=== PATIENT | male | born 1985 | race African-American/Black ===

== ENCOUNTER 2019-12-04 03:30 | Inpatient (IN) | payer MEDICAID, MEDICARE ==
[~2019-12-04] VITALS: Ht 180 cm; Wt 84.6 kg
[2019-12-04] VITALS (24 sets, daily range): BP systolic 83–144; BP diastolic 52–104
[~2019-12-04 03:30] MED LIST: DOXY100C2 PO; PRD20T PO
[2019-12-04] MEDS ORDERED: LACTATED RINGERS 1,000 ML IV ONE (03:45)
[2019-12-04 03:50] LABS: BASOPHILS % (AUTO) 0 % (0-10); EOSINOPHILS % (AUTO) 0 % (0-10); HEMATOCRIT 42 % (40-54); LYMPHOCYTES # (AUTO) 1.7 X 10^3 (1.0-4.0); LYMPHOCYTES % (AUTO) 17 % (12-44); MEAN CORPUSCULAR HEMOGLOBIN 27 PG (25-34); MEAN CORPUSCULAR HGB CONC 34 G/DL (32-36); MEAN CORPUSCULAR VOLUME 81 FL (80-99); MEAN PLATELET VOLUME 10.5 FL (7.4-10.4); MONOCYTES # (AUTO) 0.8 X 10^3 (0.0-1.0); MONOCYTES % (AUTO) 8 % (0-12); NEUTROPHILS # (AUTO) 7.7 X 10^3 (1.8-7.8); NEUTROPHILS % (AUTO) 75 % (42-75); PLATELET COUNT 250 10^3/uL (130-400); RED CELL DISTRIBUTION WIDTH 13.7 % (10.0-14.5); WHITE BLOOD COUNT 10.3 10^3/uL (4.3-11.0)
[2019-12-04 03:59] LABS: ALBUMIN 4.3 GM/DL (3.2-4.5); CHLORIDE 109 MMOL/L (98-107); POTASSIUM 3.2 MMOL/L (3.6-5.0); SODIUM 141 MMOL/L (135-145)
[2019-12-04 04:01] LABS: CALCIUM 9.3 MG/DL (8.5-10.1)
[2019-12-04 04:02] LABS: GLUCOSE 130 MG/DL (70-105); TOTAL PROTEIN 7.5 GM/DL (6.4-8.2)
[2019-12-04 04:03] LABS: CARBON DIOXIDE 18 MMOL/L (21-32)
[2019-12-04 04:04] LABS: BILIRUBIN,TOTAL 0.5 MG/DL (0.1-1.0)
[2019-12-04 04:06] LABS: ALKALINE PHOSPHATASE 62 U/L (40-136); CREATININE SERUM 1.56 MG/DL (0.60-1.30); GFR ESTIMATED > 60
[2019-12-04 04:07] LABS: BUN/CREATININE RATIO 16
[2019-12-04 04:08] LABS: SALICYLATE < 5.0 MG/DL (5.0-20.0)
[2019-12-04 04:09] LABS: ALANINE AMINOTRANSFERASE 64 U/L (0-55)
--- NOTE | 2019-12-04 04:09 | ED General ---
General Chief Complaint: Altered Mental Status Stated Complaint: ALTERED MENTAL STATUS Nursing Triage Note: Pt to RM 8 via [facility], [facility] at bedside with reports of pt found at scene banging head on ground, being combative and incoherent at time of EMS arrival. Bystanders at scene states pt has been smoking cigarettes soaked in formaldhyde x 2 days. EMS reports administration of 2mg of Ativan at 0306 en route, pt sedated on arrival. Pt has periorbital edema present to left eye d/t banging head on concrete. No other injuries noted on arrival. Pt arousable to physical stimuli, nonverbal. Nursing Sepsis Screen: No Definite Risk Source of Information: Patient Exam Limitations: No Limitations History of Present Illness Date Seen by Provider: Dec 04, 2019 Time Seen by Provider: 03:40 Initial Comments Here by EMS who report that they were called to the scene of the patient that was acting erratically. Apparently he has been smoking cigarettes dipped in formaldehyde for 2 days and he was becoming quite aggressive and erratic. Charlie iniguez called because of the behavior. He apparently was outside and was beating his head on the sidewalk as well as other erratic behavior. He reportedly was yelling and screaming. Law enforcement helped to restrain patient for his own protection and EMS was able to get an IV. They ultimately gave 2 mg of Ativan which calmed the patient significantly. Apparently he was talking to EMS or coherently at that time. Arrives sleeping and snoring. O2 saturation low 90s. He does have IV established and is currently receiving 1 L bolus of normal saline. Patient is not answering questions. He does have obvious abrasions to the forehead and bruising and swelling over the left eye. Patient has dirt covering his shorts and on his arms and legs. Arrives only wearing shorts. Timing/Duration: 1-2 Days, Getting Worse Severity: Moderate, Severe Allergies and Home Medications Allergies Coded Allergies: No Known Drug Allergies (Unverified , 01/16/14) Home Medications Doxycycline Hyclate 100 Mg Capsule, 1 EACH PO BID Prescribed by: MARY SILVA on 01/16/141904 Prednisone 20 Mg Tab, 40 MG PO DAILY Prescribed by: MARY SILVA on 01/16/141904 Patient Home Medication List Home Medication List Reviewed: Yes Review of Systems Review of Systems Constitutional: see HPI; No fever Unable to complete review of systems due to altered mental status Past Pxbator-Cuflta-Ughhkj Hx Past Med/Social Hx: Reviewed Nursing Past Med/Soc Hx Patient Social History Alcohol Use: Rarely Uses Recreational Drug Use: Yes Drug of Choice: formaldehyde Smoking Status: Current Everyday Smoker Type Used: Cigarettes Recent Foreign Travel: No Contact w/Someone Who Travel: No Recent Infectious Disease Expo: No Past Medical History Surgeries: No Respiratory: Yes Asthma Cardiac: No Neurological: No Reproductive Disorders: No Sexually Transmitted Disease: No Gastrointestinal: No Musculoskeletal: No Endocrine: No Cancer: No Family Medical History Reviewed Nursing Family Hx From historical records as patient is not answering questions Physical Exam Vital Signs Vital Signs - First Documented 12/04/19 03:49 Temp 37.3 Pulse 106 Resp 17 B/P (MAP) 122/77 (92) Pulse Ox 94 O2 Delivery Room Air Capillary Refill : Less Than 3 Seconds Height, Weight, BMI Height: 5'5" Weight: 220lbs. oz. 99.952211dl; 30.00 BMI Method:Stated General Appearance: No Apparent Distress, WD/WN HEENT: PERRL/EOMI, Pharynx Normal Neck: Non Tender, Supple Respiratory: Lungs Clear, Normal Breath Sounds Cardiovascular: No Murmur, Tachycardia Gastrointestinal: Non Tender, Soft Back: Normal Inspection, No CVA Tenderness Extremity: Non Tender, No Calf Tenderness Neurologic/Psychiatric: Other (sleeping and arouses to strong verbal but does not answer questions.) Skin: Warm/Dry, Ecchymosis (400 with a left greater than right), Other (dirt noted to all 4 extremities. Abrasions to the forehead and face.) Procedures/Interventions Date of ETT Placement: Dec 04, 2019 Time of ETT Placement: 06:54 Intubation Method: orotracheal Tube Size: 7.5 Medications: Fentanyl, Rocuronium, Versed Positive End Tide CO2: Yes Breath Sounds after Intubation: bilateral-equal Intubation Complications: no complications Post Intubation Xray: Yes good position Intubated for airway protection times one attempt with 7.5 endotracheal tube. 23 cm at the teeth. Sedation with Versed 5 mg IV, fentanyl 80 g IV and rocuronium 50 mg IV. Postintubation sedation with propofol Progress/Results/Core Measures Suspected Sepsis Recent Fever Within 48 Hours: No Infection Criteria Present: None New/Unexplained Altered Menta: No Sepsis Screen: No Definite Risk SIRS Temperature: Pulse: 106 Respiratory Rate: 17 Laboratory Tests 12/04/19 03:46: White Blood Count 10.3 Blood Pressure 122 /77 Mean: 92 Laboratory Tests 12/04/19 03:46: Creatinine 1.56H, Platelet Count 250, Total Bilirubin 0.5 Results/Orders Lab Results Laboratory Tests Test 12/04/19 03:45 12/04/19 03:46 12/04/19 06:31 Range/Units Total Creatine Kinase 6274 H 30-200 U/L White Blood Count 10.3 4.3-11.0 10^3/uL Red Blood Count 5.11 4.35-5.85 10^6/uL Hemoglobin 14.0 13.3-17.7 G/DL Hematocrit 42 40-54 % Mean Corpuscular Volume 81 80-99 FL Mean Corpuscular Hemoglobin 27 25-34 PG Mean Corpuscular Hemoglobin Concent 34 32-36 G/DL Red Cell Distribution Width 13.7 10.0-14.5 % Platelet Count 250 130-400 10^3/uL Mean Platelet Volume 10.5 H 7.4-10.4 FL Neutrophils (%) (Auto) 75 42-75 % Lymphocytes (%) (Auto) 17 12-44 % Monocytes (%) (Auto) 8 0-12 % Eosinophils (%) (Auto) 0 0-10 % Basophils (%) (Auto) 0 0-10 % Neutrophils # (Auto) 7.7 1.8-7.8 X 10^3 Lymphocytes # (Auto) 1.7 1.0-4.0 X 10^3 Monocytes # (Auto) 0.8 0.0-1.0 X 10^3 Eosinophils # (Auto) 0.0 0.0-0.3 10^3/uL Basophils # (Auto) 0.0 0.0-0.1 10^3/uL Sodium Level 141 135-145 MMOL/L Potassium Level 3.2 L 3.6-5.0 MMOL/L Chloride Level 109 H 98-107 MMOL/L Carbon Dioxide Level 18 L 21-32 MMOL/L Anion Gap 14 5-14 MMOL/L Blood Urea Nitrogen 25 H 7-18 MG/DL Creatinine 1.56 H 0.60-1.30 MG/DL Estimat Glomerular Filtration Rate > 60 BUN/Creatinine Ratio 16 Glucose Level 130 H 70-105 MG/DL Calcium Level 9.3 8.5-10.1 MG/DL Corrected Calcium 9.1 8.5-10.1 MG/DL Total Bilirubin 0.5 0.1-1.0 MG/DL Aspartate Amino Transf (AST/SGOT) 117 H 5-34 U/L Alanine Aminotransferase (ALT/SGPT) 64 H 0-55 U/L Alkaline Phosphatase 62 40-136 U/L Total Protein 7.5 6.4-8.2 GM/DL Albumin 4.3 3.2-4.5 GM/DL Salicylates Level < 5.0 L 5.0-20.0 MG/DL Acetaminophen Level < 10 L 10-30 UG/ML Serum Alcohol < 10 <10 MG/DL Urine Color YELLOW Urine Clarity CLEAR Urine pH 6.0 5-9 Urine Specific [place] >=1.030 1.016-1.022 Urine Protein 1+ H NEGATIVE Urine Glucose (UA) NEGATIVE NEGATIVE Urine Ketones NEGATIVE NEGATIVE Urine Nitrite NEGATIVE NEGATIVE Urine Bilirubin NEGATIVE NEGATIVE Urine Urobilinogen 0.2 < = 1.0 MG/DL Urine Leukocyte Esterase NEGATIVE NEGATIVE Urine RBC (Auto) 1+ H NEGATIVE Urine RBC 5-10 H /HPF Urine WBC 0-2 /HPF Urine Squamous Epithelial Cells 0-2 /HPF Urine Crystals PRESENT H /LPF Urine Calcium Oxalate Crystals MODERATE H /LPF Urine Bacteria TRACE /HPF Urine Casts NONE /LPF Urine Mucus SMALL H /LPF Urine Culture Indicated YES Urine Opiates Screen NEGATIVE NEGATIVE Urine Oxycodone Screen NEGATIVE NEGATIVE Urine Methadone Screen NEGATIVE NEGATIVE Urine Propoxyphene Screen NEGATIVE NEGATIVE Urine Barbiturates Screen NEGATIVE NEGATIVE Ur Tricyclic Antidepressants Screen NEGATIVE NEGATIVE Urine Phencyclidine Screen POSITIVE H NEGATIVE Urine Amphetamines Screen NEGATIVE NEGATIVE Urine Methamphetamines Screen NEGATIVE NEGATIVE Urine Benzodiazepines Screen POSITIVE H NEGATIVE Urine Cocaine Screen NEGATIVE NEGATIVE Urine Cannabinoids Screen POSITIVE H NEGATIVE My Orders Orders - SNEHA MANZO MD Ct Head Wo (12/04/19 03:45) Ua Culture If Indicated (12/04/19 03:45) Cbc With Automated Diff (12/04/19 03:45) Comprehensive Metabolic Panel (12/04/19 03:45) Alcohol (12/04/19 03:45) Drug Screen Stat (Urine) (12/04/19 03:45) Acetaminophen (12/04/19 03:45) Salicylate (12/04/19 03:45) Ekg Tracing (12/04/19 03:45) Ed Iv/Invasive Line Start (12/04/19 03:45) Monitor-Rhythm Ecg Trace Only (12/04/19 03:45) Bh Status Checks/Observation Q15M (12/04/19 03:45) Lactated Ringers (Lr 1000 Ml Iv Solution (12/04/19 03:45) Lorazepam Injection (Ativan Injection) (12/04/19 05:18) Ziprasidone Injection (Geodon Injection) (12/04/19 05:21) Water (Sterile) For Injection (Sterile W (12/04/19 05:21) Lorazepam Injection (Ativan Injection) (12/04/19 05:39) Creatine Kinase (12/04/19 05:49) Ketamine Injection (Ketalar Injection) (12/04/19 05:53) Ns Iv 1000 Ml (Sodium Chloride 0.9%) (12/04/19 06:42) Urine Culture (12/04/19 06:31) Chest 1 View, Ap/Pa Only (12/04/19 ) Propofol Drip (Icu) (Diprivan Drip (Icu) (12/04/19 06:59) Medications Given in ED Current Medications Medications Dose Ordered Sig/Taylor Route Start Time Stop Time Status Last Admin Dose Admin Ketamine HCl 500 mg STK-MED ONCE .ROUTE 12/04/19 05:53 12/04/19 05:56 DC 12/04/19 06:06 500 MG Lactated Ringer's 1,000 ml @ 0 mls/hr Q0M ONCE IV 12/04/19 03:45 12/04/19 03:47 DC 12/04/19 04:19 0 MLS/HR Lorazepam 2 mg STK-MED ONCE .ROUTE 12/04/19 05:18 12/04/19 05:22 DC 12/04/19 05:21 2 MG Lorazepam 2 mg STK-MED ONCE .ROUTE 12/04/19 05:39 12/04/19 05:43 DC 12/04/19 06:08 2 MG Sterile Water 10 ml @ ud STK-MED ONCE .ROUTE 12/04/19 05:21 12/04/19 05:25 DC 12/04/19 06:09 10 MLS/HR Ziprasidone 20 mg STK-MED ONCE IM 12/04/19 05:21 12/04/19 05:25 DC 12/04/19 06:09 20 MG Vital Signs/I&O 12/04/19 12/04/19 03:49 07:10 Temp 37.3 Pulse 106 108 Resp 17 B/P (MAP) 122/77 (92) 139/103 Pulse Ox 94 O2 Delivery Room Air Capillary Refill : Less Than 3 Seconds Blood Pressure Mean: 92 Progress Note : Progress Note Seen and evaluated. CT head ordered. LR 1 L bolus after IV fluids complete. Labs and EKG as well as UA and UDS ordered. Patient placed on monitor and O2 sat monitor. Initiated on 2 L O2 via nasal cannula. Monitor patient. 0620: Patient has had a complicated course in that he woke up agitated and moving around the bed. He almost with the bed over with his thrashing. We were able to verbally calm him. He did receive 2 milligrams of Ativan which did not help. Long force but were called but did not have to intervene. We continued to use verbal calming measures and talk with the patient. Poison control was contacted during this time and they do not believe this is from from outside cigarettes and are more concerned about synthetic marijuana or another agent such as methamphetamine. They're recommending total CK which was ordered. CT head was negative. He did receive 2 L total of fluid. He has not given urine sample. Ultimately we were able to give ketamine 400 mg IM and Geodon 20 mg IM. He did receive another 2 mg of Ativan IV and ultimately he has calmed. Patient will require admission for acute psychosis secondary to drug abuse. He may also have underlying mental health disorder. While awake he was talking about various subjects including Pok[place] and something related to correction and [place]. Patient did not have oriented conversation. There is concern about his safety and well- being and his current condition. Patient lower require admission. He is sleeping now. Patient placed back on monitors that he had taken off. Pulse oximeter probe that he broke was replaced and restarted. O2 as needed. Monitor patient. 0643: Patient has heavy snoring respirations now. O2 sats remained 100% on 2 L via nasal cannula. Given his significant rhabdomyolysis and the need for sedation secondary to acute psychosis, intubation was elected especially in the setting of concerns for airway protection and aspiration. This was discussed with Dr. Purcell and she agrees. Admit, inpatient status to the ICU. ECG Initial ECG Impression Date: Dec 04, 2019 Diagnostic Imaging Diagonstic Imaging: CT Plain Films/CT/US/NM/MRI: head Comments No acute infarct, hemorrhage, mass or edema. Departure Communication (Admissions) Time/Spoke to Admitting Phy: 06:30 Impression Primary Impression: Acute psychosis Additional Impressions: Illicit drug use Rhabdomyolysis Qualified Codes: M62.82 - Rhabdomyolysis Respiratory failure Qualified Codes: J96.01 - Acute respiratory failure with hypoxia; J96.02 - Acute respiratory failure with hypercapnia Disposition: ADMITTED INPATIENT Condition: Stable Admissions Decision to Admit Reason: Admit from ER (General) Decision to Admit/Date: Dec 04, 2019 Time/Decision to Admit Time: 06:25 Departure-Patient Inst. Referrals: NO,LOCAL PHYSICIAN (PCP/Family) Primary Care Physician SNEHA MANZO MD Dec 04, 2019 04:09
[2019-12-04 04:38] LABS: ACETAMINOPHEN < 10 UG/ML (10-30)
--- OUTSIDE RECORDS SUMMARY | 2019-12-04 05:10 | XMS REPORT | Continuity of Care Document ---
Author Organization Unknown Address Unknown Phone Unavailable Allergies Active Description Code Type Severity Reaction Onset Reported/Identified Relationship to Patient Clinical Status Yes Penicillins Drug Allergy N/A N/A 11/25/2011 Medications There is no data. Problems Date Dx Coded Attending Type Code Diagnosis Diagnosed By 11/25/2011 CLYDE GARCIA LCPC V7 4.5 STD SCREEN 11/25/2011 ALONDRA REVIEW CONSULTANTKYLE Medina V74 .5 STD SCREEN 11/25/2011 ALONDRA REVIEW CONSULTANT, KYLE V74 .5 STD SCREEN [facility]/25/2011 V74.5 STD SCREEN 12/30/2013 CLYDE GARCIA LCPC 296.80 MO BIPOLAR NOS 12/30/2013 ALONDRANATA MORALES KYLE 296 .80 MO BIPOLAR NOS 12/30/2013 ALONDRA REVIEW CONSULTANT, KYLE 296 .80 MO BIPOLAR NOS 12/30/2013 [facility] 296.80 MO BIPOLAR NOS 12/30/2013 296.80 MO BIPOLAR NOS 01/05/2014 ALONDRA MORALES KYLE 296 .90 MOOD DISORDER NOS 01/05/2014 ALONDRA REVIEW CONSULTANT, KYLE 296 .90 MOOD DISORDER NOS 01/05/2014 [facility] 296.90 MOOD DISORDER NOS 01/05/2014 296.90 MOO D DISORDER NOS Procedures Code Description [place] [address] PSYC H DIAGNOSTIC EVALUATION 12/30/2013 20896 PSYT X PT&/FAMILY 45 MINUTES 02/14/2014 Results Test Result Range Complete blood count (CBC) with automate d white blood cell (WBC) differential - 12/04/19 03:46 Blood leukocytes automated count (number/volume) 10.3 10*3/uL 4.3-11.0 Blood erythrocytes automated count (number/volume) 5.11 10*6/uL 4.35-5.85 Venous blood hemoglobin measurement (mass/volume) 14.0 g/dL 13.3-17.7 Blood hematocrit (volume fraction) 42 % 40-54 Automated erythrocyte mean corpuscular volume 81 [ foz_us] 80-99 Automated erythrocyte mean corpuscular h emoglobin (mass per erythrocyte) 27 pg 25-34 Automated erythrocyte mean corpuscular h emoglobin concentration measurement (mass/volume) 34 g/dL 32-36 Automated erythrocyte distribution width ratio 13. 7 % 10.0- 14.5 Automated blood platelet count (count/volume) 250 10*3/uL 130-400 Automated blood platelet mean volume measurement 10.5 [foz_us] 7.4-10.4 Automated blood neutrophils/100 leukocytes 75 % 42-75 Automated blood lymphocytes/100 leukocytes 17 % 12-44 Blood monocytes/100 leukocytes 8 % 0-12 Automated blood eosinophils/100 leukocytes 0 % 0-10 Automated blood basophils/100 leukocytes 0 % 0-10 Blood neutrophils automated count (number/volume) 7.7 10*3 1.8-7.8 Blood lymphocytes automated count (number/volume) 1.7 10*3 1.0-4.0 Blood monocytes automated count (number/volume) 0. 8 10*3 0.0-1.0 Automated eosinophil count 0.0 10*3/uL 0 .0-0.3 Automated blood basophil count (count/volume) 0.0 10*3/uL 0.0-0.1 Comprehensive metabolic panel - 12/04/19 03:46 Serum or plasma sodium measurement (moles/volume) 141 mmol/L 135-145 Serum or plasma potassium measurement (moles/volume) 3.2 mmol/L 3.6-5.0 Serum or plasma chloride measurement (moles/volume) 109 mmol/L 98-107 Carbon dioxide 18 mmol/L 21-32 Serum or plasma anion gap determination (moles/volume) 14 mmol/L 5-14 Serum or plasma urea nitrogen measurement (mass/volume ) 25 mg/dL 7-18 Serum or plasma creatinine measurement (mass/volume) 1.56 mg/dL 0.60-1.30 Serum or plasma urea nitrogen/creatinine mass ratio 16 NRG Serum or plasma creatinine measurement w ith calculation of estimated glomerular filtration rate > NRG Serum or plasma glucose measurement (mass/volume) 130 mg/dL 70-105 Serum or plasma calcium measurement (mass/volume) 9.3 mg/dL 8.5-10.1 Serum or plasma total bilirubin measurement (mass/volu me) 0.5 mg/dL 0.1-1.0 Serum or plasma alkaline phosphatase shakir surement (enzymatic activity/volume) 62 U/L 40-136 Serum or plasma aspartate aminotransfera se measurement (enzymatic activity/volume) 117 U/L 5-34 Serum or plasma alanine aminotransferase measurement (enzymatic activity/volume) 64 U/L 0-55 Serum or plasma protein measurement (mass/volume) 7.5 g/dL 6.4-8.2 Serum or plasma albumin measurement (mass/volume) 4.3 g/dL 3.2-4.5 CALCIUM CORRECTED 9.1 mg/dL 8.5-10.1 Serum or plasma salicylates measurement (mass/volume) - 12/04/19 03:46 Serum or plasma salicylates measurement (mass/volume) < mg/dL 5.0-20.0 Serum or plasma acetaminophen measuremen t (mass/volume) - 12/04/19 03:46 Serum or plasma acetaminophen measurement (mass/volume ) < ug/mL 10-30 Serum or plasma ethanol measurement (mas s/volume) - 12/04/19 03:46 Serum or plasma ethanol measurement (mass/volume) < mg/dL <10 Encounters ACCT No. Visit Date/Time Discharge Status Pt. Type Provider Facility Loc./Unit Complaint [id number] 03/15/2014 07:01:00 03/15/2014 23:59: 59 CLS Outpatient [id number] 02/14/2014 10:02:00 02/14/2014 23:59: 59 CLS Outpatient OLIVIA DIOP [id number] 01/05/2014 11:22:00 01/05/2014 23:59: 59 CLS Outpatient KYLE CANTU APRN [id number] 01/05/2014 11:22:00 01/05/2014 23:59: 59 CLS Outpatient KYLE CANTU APRN [id number] 12/30/2013 11:08:00 12/30/2013 23:59: 59 CLS Outpatient CLYDE GARCIA LCPC [id number] 01/16/2014 16:20:00 014 19:43:00 DIS Emergency [id number] 12/04/2019 03:52:00 Document Registration
--- OUTSIDE RECORDS SUMMARY | 2019-12-04 05:10 | XMS REPORT ---
Author Author Jason GARCIA Organization [facility] Address Unknown Care Team Providers Care Change Booth Attendant Name Role Phone JOSE CLYDE Unavailable PROBLEMS Type Condition ICD9-CM Code [id number] Code Onset Dates Condition S tatus SNOMED Code Problem Unspecified episodic mood disorder 296.90 Active 498636403 Problem Bipolar disorder, unspecified 296.80 Active 21615949 Problem Screening examination for venereal disease V74.5 Active [id number] ALLERGIES No Information ENCOUNTERS Encounter Location Date Diagnosis [facility] [address] [id number] [address] [place] [phone] Aug, [facility] [address] [id number] [address] [place] [phone] Aug, [facility] [address] [id number] [address] [place] [phone] Mar, [facility] [address] [id number] [address] [place] [phone] Mar, [facility] [address] [id number] [address] [place] [phone] Jan, [facility] [address] [id number] [address] [place] [phone] Jan, [facility] [address] [id number] [address] [place] [phone] Jan, [facility] [address] [id number] [address] [place] [phone] Jan, [facility] [address] [id number] [address] [place] [phone] Dec, [facility] [address] [id number] [address] [place] [phone] Dec, [facility] [address] [facility] [id number] [address] [place] [phone] Dec, [facility] [address] [facility] [id number] [address] [place] [phone] Dec, [facility] [address] [facility] [id number] [address] [place] [phone] Nov, [facility] [address] [facility] [id number] [address] [place] [phone] Nov, [facility] [address] [facility] [id number] [address] [place] [phone] Nov, IMMUNIZATIONS No Known Immunizations SOCIAL HISTORY Never Assessed REASON FOR VISIT PLAN OF CARE VITAL SIGNS MEDICATIONS Unknown Medications RESULTS No Results PROCEDURES Procedure Date Ordered Result Body Site PSYCH DIAGNOSTIC EVALUATION Dec 30, 2013 INSTRUCTIONS MEDICATIONS ADMINISTERED No Known Medications
--- OUTSIDE RECORDS SUMMARY | 2019-12-04 05:10 | XMS REPORT ---
Author Author Jason Barksdale Doctor Organization [facility] Address Unknown Phone Unavailable Care Team Providers Care Drill Doctor Name Role Phone Migration, Doctor Unavailable Unavailable PROBLEMS Type Condition ICD9-CM Code [id number] Code Onset Dates Condition S tatus SNOMED Code Problem Unspecified episodic mood disorder 296.90 Active 349746177 Problem Bipolar disorder, unspecified 296.80 Active 86381009 Problem Screening examination for venereal disease V74.5 Active 707607064 ALLERGIES Substance Reaction Event Type Date Status Penicillins Unknown Non Drug Allergy Aug, Active ENCOUNTERS Encounter Location Date Diagnosis [facility] [address] [id number] [address] [place] [phone] Aug, [facility] [address] [id number] [address] [place] [phone] Aug, [facility] [address] [id number] [address] [place] [phone] Mar, [facility] [address] [id number] [address] [place] [phone] Mar, [facility] [address] [id number] [address] [place] [phone] Jan, [facility] [address] [id number] [address] [place] [phone] Jan, [facility] [address] [id number] [address] [place] [phone] Jan, [facility] [address] [id number] [address] [place] [phone] Jan, [facility] [address] [id number] [address] [place] [phone] Dec, [facility] [address] [id number] [address] [place] [phone] Dec, [facility] [address] [facility] [id number] [address] [place] [phone] Dec, [facility] [address] [facility] [id number] [address] [place] [phone] Dec, [facility] [address] [facility] [id number] [address] [place] [phone] Nov, [facility] [address] [facility] [id number] [address] [place] [phone] Nov, [facility] [address] [facility] [id number] [address] [place] [phone] Nov, IMMUNIZATIONS No Known Immunizations SOCIAL HISTORY Never Assessed REASON FOR VISIT EMR-[facility] PLAN OF CARE VITAL SIGNS MEDICATIONS Medication Instructions Dosage Frequency Start Date End Date Duration S tatus Lamictal 25 mg 1 Tablet(s) by Oral route 1 time per day take 1 tab daily X7 day, then 2 tabs daily. Dec, Acti ve RESULTS No Results PROCEDURES No Known procedures INSTRUCTIONS MEDICATIONS ADMINISTERED No Known Medications
--- OUTSIDE RECORDS SUMMARY | 2019-12-04 05:10 | XMS REPORT ---
Author Author Jason Potts [facility] Address [address] [place] [address] Care Team Providers Care Marine Equipment Design Engineer Name Role Phone KYLE Potts Unavailable PROBLEMS Type Condition ICD9-CM Code [id number] Code Onset Dates Condition S tatus SNOMED Code Problem Unspecified episodic mood disorder 296.90 Active 009251620 Problem Bipolar disorder, unspecified 296.80 Active 53041855 Problem Screening examination for venereal disease V74.5 Active [id number] ALLERGIES No Information ENCOUNTERS Encounter Location Date Diagnosis [facility] [address] [id number] [address] [place] [phone] Aug, [facility] [address] [id number] [address] [place] [phone] Aug, [facility] [address] [id number] [address] [place] [phone] Mar, [facility] [address] [id number] [address] [place] [phone] Mar, [facility] [address] [id number] [address] [place] [phone] Jan, [facility] [address] [id number] [address] [place] [phone] Jan, [facility] [address] [id number] [address] [place] [phone] Jan, [facility] [address] [id number] [address] [place] [phone] Jan, [facility] [address] [id number] [address] [place] [phone] Dec, [facility] [address] [id number] [address] [place] [phone] Dec, [facility] [address] [facility] [id number] [address] [place] [phone] Dec, [facility] [address] [facility] [id number] [address] [place] [phone] Dec, [facility] [address] [facility] [id number] [address] [place] [phone] Nov, [facility] [address] [facility] [id number] [address] [place] [phone] Nov, [facility] [address] [facility] [id number] [address] [place] [phone] Nov, IMMUNIZATIONS No Known Immunizations SOCIAL HISTORY Never Assessed REASON FOR VISIT PLAN OF CARE VITAL SIGNS MEDICATIONS Unknown Medications RESULTS No Results PROCEDURES No Known procedures INSTRUCTIONS MEDICATIONS ADMINISTERED No Known Medications
--- OUTSIDE RECORDS SUMMARY | 2019-12-04 05:10 | XMS REPORT ---
Author Author Jason Potts [facility] Address [address] [place] [address] Care Team Providers Care Utilities Manager Name Role Phone KYLE Potts Unavailable PROBLEMS Type Condition ICD9-CM Code [id number] Code Onset Dates Condition S tatus SNOMED Code Problem Unspecified episodic mood disorder 296.90 Active 608495902 Problem Bipolar disorder, unspecified 296.80 Active 50147757 Problem Screening examination for venereal disease V74.5 Active [id number] ALLERGIES No Information ENCOUNTERS Encounter Location Date Diagnosis [facility] [address] [id number] [address] [place] [phone] Aug, [facility] [address] [id number] [address] [place] [phone] Aug, [facility] [address] [id number] [address] [place] [phone] Mar, [facility] [address] [id number] [address] [place] [phone] Mar, [facility] [address] [id number] [address] [place] [phone] Jan, [facility] [address] [id number] [address] [place] [phone] Jan, [facility] [address] [id number] [address] [place] [phone] Jan, [facility] [address] [id number] [address] [place] [phone] Jan, [facility] [address] [id number] [address] [place] [phone] Dec, [facility] [address] [id number] [address] [place] [phone] Dec, [facility] [address] [facility] [id number] [address] [place] [phone] Dec, [facility] [address] [facility] [id number] [address] [place] [phone] Dec, [facility] [address] [facility] [id number] [address] [place] [phone] Nov, [facility] [address] [facility] [id number] [address] [place] [phone] Nov, [facility] [address] [facility] [id number] [address] [place] [phone] Nov, IMMUNIZATIONS No Known Immunizations SOCIAL HISTORY Never Assessed REASON FOR VISIT PLAN OF CARE VITAL SIGNS Height 65 in 2014-01-05 Weight 200.2 lbs 2014-01-05 Heart Rate 80 bpm 2014-01-05 Blood pressure systolic 104 mmHg 2014-01-05 Blood pressure diastolic 68 mmHg 2014-01-05 MEDICATIONS Unknown Medications RESULTS No Results PROCEDURES No Known procedures INSTRUCTIONS MEDICATIONS ADMINISTERED No Known Medications
--- OUTSIDE RECORDS SUMMARY | 2019-12-04 05:10 | XMS REPORT ---
Author Author Jason Barksdale Doctor Organization [facility] Address Unknown Phone Unavailable Care Team Providers Care Broke Beater Operator Name Role Phone Migration, Doctor Unavailable Unavailable PROBLEMS Type Condition ICD9-CM Code NZP87-DB Code Onset Dates Condition S tatus SNOMED Code Problem Unspecified episodic mood disorder 296.90 Active 325820578 Problem Bipolar disorder, unspecified 296.80 Active 47808276 Problem Screening examination for venereal disease V74.5 Active [id number] ALLERGIES No Information ENCOUNTERS Encounter Location Date Diagnosis [facility] [address] [id number] [address] [place] [phone] Aug, [facility] [address] [id number] [address] [place] [phone] Aug, [facility] [address] [id number] [address] [place] [phone] Mar, [facility] [address] [id number] [address] [place] [phone] Mar, [facility] [address] [id number] [address] [place] [phone] Jan, [facility] [address] [id number] [address] [place] [phone] Jan, [facility] [address] [id number] [address] [place] [phone] Jan, [facility] [address] [id number] [address] [place] [phone] Jan, [facility] [address] [id number] [address] [place] [phone] Dec, [facility] [address] [id number] [address] [place] [phone] Dec, [facility] [address] [id number] [address] [place] [phone] Dec, [facility] [address] [facility] [id number] [address] [place] [phone] Dec, [facility] [address] [facility] [id number] [address] [place] [phone] Nov, [facility] [address] [facility] [id number] [address] [place] [phone] Nov, [facility] [address] [facility] [id number] [address] [place] [phone] Nov, IMMUNIZATIONS No Known Immunizations SOCIAL HISTORY Never Assessed REASON FOR VISIT EMR-[facility] PLAN OF CARE VITAL SIGNS MEDICATIONS Unknown Medications RESULTS No Results PROCEDURES No Known procedures INSTRUCTIONS MEDICATIONS ADMINISTERED No Known Medications
--- OUTSIDE RECORDS SUMMARY | 2019-12-04 05:10 | XMS REPORT ---
Author Author Jasno Barksdale Doctor Organization [facility] Address Unknown Phone Unavailable Care Team Providers Care Retail Operations Specialist Name Role Phone Migration, Doctor Unavailable Unavailable PROBLEMS Type Condition ICD9-CM Code OPI66-GM Code Onset Dates Condition S tatus SNOMED Code Problem Unspecified episodic mood disorder 296.90 Active 606771101 Problem Bipolar disorder, unspecified 296.80 Active 12959747 Problem Screening examination for venereal disease V74.5 Active 589400619 ALLERGIES No Information ENCOUNTERS Encounter Location Date Diagnosis [facility] [address] [id number] [address] [place] [phone] Aug, [facility] [address] [id number] [address] [place] [phone] Aug, [facility] [address] [id number] [address] [place] [phone] Mar, [facility] [address] [id number] [address] [place] [phone] Mar, [facility] [address] [id number] [address] [place] [phone] Jan, [facility] [address] [id number] [address] [place] [phone] Jan, [facility] [address] [id number] [address] [place] [phone] Jan, [facility] [address] [id number] [address] [place] [phone] Jan, [facility] [address] [id number] [address] [place] [phone] Dec, [facility] [address] [id number] [address] [place] [phone] Dec, [facility] [address] [id number] [address] [place] [phone] Dec, [facility] [address] [facility] [id number] [address] [place] [phone] Dec, [facility] [address] [facility] [id number] [address] [place] [phone] Nov, [facility] [address] [facility] [id number] [address] [place] [phone] Nov, [facility] [address] [facility] [id number] [address] [place] [phone] Nov, IMMUNIZATIONS No Known Immunizations SOCIAL HISTORY Never Assessed REASON FOR VISIT PLAN OF CARE VITAL SIGNS Height 65 in 2011-11-25 Weight 154 lbs 2011-11-25 Temperature 98.2 degrees Fahrenheit 2011-11-25 Heart Rate 90 bpm 2011-11-25 Respiratory Rate 18 2011-11-25 Blood pressure systolic 102 mmHg 2011-11-25 Blood pressure diastolic 70 mmHg 2011-11-25 MEDICATIONS Unknown Medications RESULTS No Results PROCEDURES Procedure Date Ordered Result Body Site CHYLMD TRACH, DNA, AMP PROBE November 25, 2011 HEPATITIS B SURFACE AG, EIA November 25, 2011 HIV-1 November 25, 2011 BLOOD SEROLOGY, QUALITATIVE November 25, 2011 INSTRUCTIONS MEDICATIONS ADMINISTERED No Known Medications
--- OUTSIDE RECORDS SUMMARY | 2019-12-04 05:10 | XMS REPORT ---
Author Author Jason RAPHAEL Organization [facility] Address [address] [place] [address] Care Team Providers Care Medical Support Specialist Name Role Phone OLIVIA RAPHAEL Unavailable PROBLEMS Type Condition ICD9-CM Code [id number] Code Onset Dates Condition S tatus SNOMED Code Problem Unspecified episodic mood disorder 296.90 Active 124091419 Problem Bipolar disorder, unspecified 296.80 Active 67224808 Problem Screening examination for venereal disease V74.5 Active 559633080 ALLERGIES No Information ENCOUNTERS Encounter Location Date Diagnosis [facility] [address] [id number] [address] [place] [phone] Aug, [facility] [address] [id number] [address] [place] [phone] Aug, [facility] [address] [id number] [address] [place] [phone] Mar, [facility] [address] [id number] [address] [place] [phone] Mar, [facility] [address] [id number] [address] [place] [phone] Jan, [facility] [address] [id number] [address] [place] [phone] Jan, [facility] [address] [id number] [address] [place] [phone] Jan, [facility] [address] [id number] [address] [place] [phone] Jan, [facility] [address] [id number] [address] [place] [phone] Dec, [facility] [address] [id number] [address] [place] [phone] Dec, [facility] [address] [facility] [id number] [address] [place] [phone] Dec, [facility] [address] [facility] [id number] [address] [place] [phone] Dec, [facility] [address] [facility] [id number] [address] [place] [phone] Nov, [facility] [address] [facility] [id number] [address] [place] [phone] Nov, [facility] [address] [facility] [id number] [address] [place] [phone] Nov, IMMUNIZATIONS No Known Immunizations SOCIAL HISTORY Never Assessed REASON FOR VISIT PLAN OF CARE VITAL SIGNS MEDICATIONS Unknown Medications RESULTS No Results PROCEDURES Procedure Date Ordered Result Body Site PSYTX PT&/FAMILY 45 MINUTES Feb 14, 2014 INSTRUCTIONS MEDICATIONS ADMINISTERED No Known Medications
--- OUTSIDE RECORDS SUMMARY | 2019-12-04 05:10 | XMS REPORT ---
Author Author Jason Barksdale Doctor Organization [facility] Address Unknown Phone Unavailable Care Team Providers Care Low Raw Sugar Cutter Name Role Phone Migration, Doctor Unavailable Unavailable PROBLEMS Type Condition ICD9-CM Code TRH47-VN Code Onset Dates Condition S tatus SNOMED Code Problem Unspecified episodic mood disorder 296.90 Active 383175135 Problem Bipolar disorder, unspecified 296.80 Active 73526647 Problem Screening examination for venereal disease V74.5 Active 571032714 ALLERGIES No Information ENCOUNTERS Encounter Location Date Diagnosis [facility] [address] [id number] [address] [place] [phone] Aug, [facility] [address] [id number] [address] [place] [phone] Aug, [facility] [address] [id number] [address] [place] [phone] Mar, [facility] [address] [id number] [address] [place] [phone] Mar, [facility] [address] [id number] [address] [place] [phone] Jan, [facility] [address] [id number] [address] [place] [phone] Jan, [facility] [address] [id number] [address] [place] [phone] Jan, [facility] [address] [id number] [address] [place] [phone] Jan, [facility] [address] [id number] [address] [place] [phone] Dec, [facility] [address] [id number] [address] [place] [phone] Dec, [facility] [address] [id number] [address] [place] [phone] Dec, [facility] [address] [facility] [id number] [address] [place] [phone] Dec, [facility] [address] [facility] [id number] [address] [place] [phone] Nov, [facility] [address] [facility] [id number] [address] [place] [phone] Nov, [facility] [address] [facility] [id number] [address] [place] [phone] Nov, IMMUNIZATIONS No Known Immunizations SOCIAL HISTORY Never Assessed REASON FOR VISIT EMR-[facility] PLAN OF CARE VITAL SIGNS MEDICATIONS Unknown Medications RESULTS No Results PROCEDURES No Known procedures INSTRUCTIONS MEDICATIONS ADMINISTERED No Known Medications
--- OUTSIDE RECORDS SUMMARY | 2019-12-04 05:10 | XMS REPORT ---
Author Author Jason RAPHAEL Organization [facility] Address [address] [place] [address] Care Team Providers Care High School Coach Name Role Phone OLIVIA RAPHAEL Unavailable PROBLEMS Type Condition ICD9-CM Code [id number] Code Onset Dates Condition S tatus SNOMED Code Problem Unspecified episodic mood disorder 296.90 Active 604889294 Problem Bipolar disorder, unspecified 296.80 Active 36676453 Problem Screening examination for venereal disease V74.5 Active 808102822 ALLERGIES No Information ENCOUNTERS Encounter Location Date Diagnosis [facility] [address] [id number] [address] [place] [phone] Aug, [facility] [address] [id number] [address] [place] [phone] Aug, [facility] [address] [id number] [address] [place] [phone] Mar, [facility] [address] [id number] [address] [place] [phone] Mar, [facility] [address] [id number] [address] [place] [phone] Jan, [facility] [address] [id number] [address] [place] [phone] Jan, [facility] [address] [id number] [address] [place] [phone] Jan, [facility] [address] [id number] [address] [place] [phone] Jan, [facility] [address] [id number] [address] [place] [phone] Dec, [facility] [address] [id number] [address] [place] [phone] Dec, [facility] [address] [facility] [id number] [address] [place] [phone] Dec, [facility] [address] [facility] [id number] [address] [place] [phone] Dec, [facility] [address] [facility] [id number] [address] [place] [phone] Nov, [facility] [address] [facility] [id number] [address] [place] [phone] Nov, [facility] [address] [facility] [id number] [address] [place] [phone] Nov, IMMUNIZATIONS No Known Immunizations SOCIAL HISTORY Never Assessed REASON FOR VISIT PLAN OF CARE VITAL SIGNS MEDICATIONS Unknown Medications RESULTS No Results PROCEDURES No Known procedures INSTRUCTIONS MEDICATIONS ADMINISTERED No Known Medications
[2019-12-04] MEDS ORDERED: LORazepam INJ 2 MG/ML (ATIVAN) VIAL ONE ×2 (05:18→05:39)
[2019-12-04] MEDS ORDERED: ZIPRASIDONE 20 MG INJ (GEODON) VIAL IM ONE (05:21)
[2019-12-04] MEDS ORDERED: WATER (STERILE) FOR INJECTION 10 ML ONE (05:21)
--- NOTE | 2019-12-04 05:30 | NUR ---
Poison Control called at this time to consult about pt status
[2019-12-04] MEDS ORDERED: KETAMINE HCL 100 MG/ML 5 ML VIAL ONE (05:53)
[2019-12-04 06:40] LABS: BILIRUBIN,URINE NEGATIVE (NEGATIVE); CLARITY,URINE CLEAR; COLOR,URINE YELLOW; GLUCOSE, URINE (UA) NEGATIVE (NEGATIVE); KETONES,URINE NEGATIVE (NEGATIVE); LEUKOCYTE ESTERASE ,URINE NEGATIVE (NEGATIVE); NITRITE,URINE NEGATIVE (NEGATIVE); PROTEIN,URINE 1+ (NEGATIVE)
[2019-12-04] MEDS ORDERED: NS IV 1000 ML 1,000 ML ONE (06:42)
[2019-12-04 06:49] LABS: BACTERIA,URINE TRACE /HPF; SQUAMOUS EPITHELIAL CELL,UR 0-2 /HPF; WBC,URINE 0-2 /HPF
[2019-12-04 06:50] LABS: CALCIUM OXALATE CRYSTALS,UR MODERATE /LPF
[2019-12-04 06:52] LABS: AMPHETAMINE SCREEN, URINE NEGATIVE (NEGATIVE); BARBITURATE SCREEN URINE NEGATIVE (NEGATIVE); BENZODIAZEPINES SCREEN URINE POSITIVE (NEGATIVE); CANNABINOID SCREEN, URINE POSITIVE (NEGATIVE); COCAINE SCREEN URINE NEGATIVE (NEGATIVE); METHADONE STAT NEGATIVE (NEGATIVE); METHAMPHETAMINE SCREEN URINE S NEGATIVE (NEGATIVE); OPIATE SCREEN URINE NEGATIVE (NEGATIVE); OXYCODONE STAT NEGATIVE (NEGATIVE); PROPOXYPHENE STAT NEGATIVE (NEGATIVE); TRICYCLIC ANTIDEPRESSANTS SCRE NEGATIVE (NEGATIVE)
[2019-12-04] MEDS ORDERED: PROPOFOL DRIP (ICU) 100 ML IV ONE (06:59)
--- OUTSIDE RECORDS SUMMARY | 2019-12-04 07:18 | XMS REPORT | Continuity of Care Document ---
Author Organization Unknown Address Unknown Phone Unavailable Allergies Active Description Code Type Severity Reaction Onset Reported/Identified Relationship to Patient Clinical Status Yes Penicillins Drug Allergy N/A N/A 11/25/2011 Medications There is no data. Problems Date Dx Coded Attending Type Code Diagnosis Diagnosed By 11/25/2011 CLYDE GARCIA LCPC V7 4.5 STD SCREEN 11/25/2011 ALONDRA EQUESTRIAN TRAINERKYLE Medina V74 .5 STD SCREEN 11/25/2011 ALONDRA EQUESTRIAN TRAINER, KYLE V74 .5 STD SCREEN 11/[facility]2011 [facility] 11/25/2011 V74.5 STD SCREEN 12/30/2013 CLYDE GARCIA LCPC 296.80 MO BIPOLAR NOS 12/30/2013 ALONDRANATA MORALES KYLE 296 .80 MO BIPOLAR NOS 12/30/2013 ALONDRA EQUESTRIAN TRAINER, KYLE 296 .80 MO BIPOLAR NOS 12/30/2013 [facility] 296.80 MO BIPOLAR NOS 12/30/2013 296.80 MO BIPOLAR NOS 01/05/2014 ALONDRA MORALES KYLE 296 .90 MOOD DISORDER NOS 01/05/2014 ALONDRA MORALES, KYLE 296 .90 MOOD DISORDER NOS 01/05/2014 [facility] 296.90 MOOD DISORDER NOS 01/05/2014 296.90 MOO D DISORDER NOS Procedures Code Description [place] [address] PSYC H DIAGNOSTIC EVALUATION 12/30/2013 83670 PSYT X PT&/FAMILY 45 MINUTES 02/14/2014 Results Test Result Range Serum or plasma creatine kinase measurem ent (enzymatic activity/volume) - 12/04/19 03:45 Serum or plasma creatine kinase measurem ent (enzymatic activity/volume) 6274 U/L 30-200 Complete blood count (CBC) with automate d [...] plasma ethanol measurement (mass/volume) < mg/dL <10 Complete urinalysis with reflex to cultu re - 12/04/19 06:31 Urine color determination YELLOW NRG Urine clarity determination CLEAR NR G Urine pH measurement by test strip 6.0 5-9 Specific gravity of urine by test strip >= 1.016-1.022 Urine protein assay by test strip, semi-quantitative 1+ NEGATIVE Urine glucose detection by automated test strip NE GATIVE NEGATIVE Erythrocytes detection in urine sediment by light micr oscopy 1+ NEGATIVE Urine ketones detection by automated test strip NE GATIVE NEGATIVE Urine nitrite detection by test strip NEGATIVE NEGATIVE Urine total bilirubin detection by test strip NEGA TIVE NEGATIVE Urine urobilinogen measurement by automated test strip (mass/volume) 0.2 mg/dL < = 1.0 Urine leukocyte esterase detection by dipstick NEG ATIVE NEGATIVE Automated urine sediment erythrocyte cou nt by microscopy (number/high power field) [HPF] NRG Automated urine sediment leukocyte count by microscopy (number/high power field) [HPF] NRG Bacteria detection in urine sediment by light microsco py TRACE NRG Squamous epithelial cells detection in u rine sediment by light microscopy 0-2 NRG Crystals detection in urine sediment by light microsco py PRESENT NRG Casts detection in urine sediment by light microscopy NONE NRG Mucus detection in urine sediment by light microscopy SMALL NRG Complete urinalysis with reflex to culture YES NRG Calcium oxalate crystals detection in ur ine sediment by light microscopy MODERATE NRG Urine drug screening test - 12/04/19 06: 31 Urine phencyclidine detection by screening method POSITIVE NEGATIVE Urine benzodiazepines detection by screening method POSITIVE NEGATIVE Urine cocaine detection NEGATIVE NEGATI VE Urine amphetamines detection by screening method N EGATIVE NEGATIVE Urine methamphetamine detection by screening method NEGATIVE NEGATIVE Urine cannabinoids detection by screening method P OSITIVE NEGATIVE Urine opiates detection by screening method NEGATI VE NEGATIVE Urine barbiturates detection NEGATIVE N EGATIVE Screening urine tricyclic antidepressants detection NEGATIVE NEGATIVE Urine methadone detection by screening method NEGA TIVE NEGATIVE Urine oxycodone detection NEGATIVE NEGA TIVE Urine propoxyphene detection NEGATIVE N EGATIVE Encounters ACCT No. Visit Date/Time Discharge Status Pt. Type Provider Facility Loc./Unit Complaint [id number] 03/15/2014 07:01:00 03/15/2014 23:59: 59 CLS Outpatient [id number] 02/14/2014 10:02:00 02/14/2014 23:59: 59 CLS Outpatient OLIVIA DIOP [id number] 01/05/2014 11:22:00 01/05/2014 23:59: 59 CLS Outpatient KYLE CANTU APRN [id number] 01/05/2014 11:22:00 01/05/2014 23:59: 59 CLS Outpatient KYLE CANTU APRN [id number] 12/30/2013 11:08:00 12/30/2013 23:59: 59 CLS Outpatient CLYDE GARCIA LCPC [id number] 01/16/2014 16:20:00 014 19:43:00 DIS Emergency [id number] 12/04/2019 03:52:00 Document Registration
--- NOTE | 2019-12-04 07:21 | Diagnostic Imaging Report ---
PROCEDURE: CT head without contrast. TECHNIQUE: Multiple contiguous axial images were obtained through the brain without the use of intravenous contrast. Auto Exposure Controls were utilized during the CT exam to meet ALARA standards for radiation dose reduction. DATE: December 04, 2019. COMPARISON: None. INDICATION: 34-year-old male, altered mental status. FINDINGS: There is soft tissue swelling superficial to the left orbit at its inferior aspect in the region of the left cheek. There is no identified radiopaque foreign body. The globes appear grossly intact. There is no identified retro-orbital hematoma. There is no identified skull fracture. The ventricles and cerebral spinal fluid spaces are of normal size and configuration for the patient's age. There is no mass effect or midline shift. There is no acute intracranial hemorrhage. There is no abnormal extra-axial fluid collection. The visualized portions of the paranasal sinuses, mastoid air cells and middle ears are well aerated. IMPRESSION: 1. Soft tissue swelling superficially located near the level of the inferior left orbit and left cheek which could relate to soft tissue contusion/hematoma. Recommend correlation clinically. 2. No identified acute intracranial abnormality. Dictated by: Dictated on workstation # [id number]
[2019-12-04] MEDS ORDERED: RT-ALBUTEROL SULF 2.5 MG/3 ML PRE-MIX VIAL INH STA (07:35)
--- NOTE | 2019-12-04 07:38 | Diagnostic Imaging Report ---
EXAMINATION: Chest radiograph, portable AP view. DATE: 12/04/2019 7:22 AM hours. INDICATION: 34-year-old male, tube placement. COMPARISON: Chest radiograph January 16, 2014. FINDINGS: The endotracheal tube is approximately 3.5 cm above the thao. The nasogastric tube is in the stomach. Heart size and mediastinal contours are unremarkable. There is no identified pneumothorax. There is no large pleural effusion. There is nonspecific right upper lobe airspace consolidation. IMPRESSION: 1. Nonspecific right upper lobe airspace consolidation. 2. Support lines and tubes as above. Dictated by: Dictated on workstation # [id number]
[2019-12-04] MEDS ORDERED: LORazepam INJ 2 MG/ML (ATIVAN) VIAL IV PRN (08:15)
--- NOTE | 2019-12-04 08:44 | History & Physical-Hospitalist ---
History of Present Illness HPI/Chief Complaint Pt is a 34yoCM who presented to the ER due to acute psychosis. He is currently intubated and sedated and unable to provide any history. All history obtained from the records. Apparently police were called due to pt acting erratically. He has been smoking 'wet' (cigarettes dipped in formaldehyde) for the past two days and became increasingly erratic and aggressive so his friends called the police. He was outside of the house beating his head on the sidewalk and yelling and screaming. He was given 2mg of Ativan by EMS which helped to calm the patient for a short period of time. Unfortunately this was short lived and he became more agitated in the ER. He at first calmed with verbal direction but this was not effective detention. requiring 500mg of Ketamine, 2mg Ativan x2, and 20mg of Geodon. Poison Control was contacted and believed this to be more consistent with synthetic marijuana intoxication. They recommended admission and checking CK. Unfortunately he did require intubation for airway protection. Source: patient Date Seen 12/04/19 Time Seen by a Provider: 08:42 Attending Physician Leidy Romo MD PCP No,Local Physician Referring Physician Date of Admission Dec 04, 2019 at 06:31 Home Medications & Allergies Home Medications Reviewed patient Home Medication Reconciliation performed by pharmacy medication reconciliations patient care technician and/or nursing. Patients Allergies have been reviewed. Allergies Allergies Coded Allergies No Known Drug Allergies (Unverified01/16/14) Past Xnbqgmm-Iegczr-Ppwhvw Hx Past Med/Social Hx: Reviewed Nursing Past Med/Soc Hx Patient Social History Alcohol Use: Rarely Uses Recreational Drug Use: Yes Drug of Choice: formaldehyde Smoking Status: Current Everyday Smoker Type Used: Cigarettes Recent Foreign Travel: No Contact w/other who traveled: No Recent Infectious Disease Expo: No Past Medical History Reproductive: No Sexually Transmitted Disease: No Family History Reviewed Nursing Family Hx From historical records as patient is not answering questions Review of Systems ROS-Unable to Obtain: intubated and sedated Constitutional: see HPI Physical Exam Physical Exam Vital Signs Vital Signs - First Documented 12/04/19 12/04/19 03:49 07:28 Temp 37.3 Pulse 106 Resp 17 B/P (MAP) 122/77 (92) Pulse Ox 94 O2 Delivery Room Air FiO2 70 Capillary Refill : Less Than 3 Seconds Height, Weight, BMI Height: 5'5" Weight: 220lbs. oz. 99.763073fa; 30.00 BMI Method:Stated General Appearance: WD/WN, Other (intubated, resting comfortably) HEENT: Moist Mucous Membranes, Other (ETT in place, some edema around left eye) Neck: Normal Inspection; No JVD, No Thyromegaly Respiratory: Lungs Clear, Other (on vent) Cardiovascular: Regular Rate, Rhythm, No Murmur Gastrointestinal: Normal Bowel Sounds, Non Tender, Soft Genital/Rectal: Other (andres in place ) Extremity: Normal Capillary Refill, Normal Inspection, No Pedal Edema Neurologic/Psychiatric: Other (sedated, resting comfortably) Skin: Normal Color, Warm/Dry, Tattoos/Piercings Results Results/Procedures Labs Laboratory Tests 12/04/19 03:46 Patient resulted labs reviewed. Imaging: Reviewed Imaging Report [facility] [place] [place] NAME: [facility] REC#: [id number] PT STATUS: ADM IN : 1985 PHYSICIAN: SNEHA MANZO MD ADMIT DATE: 12/04/19/ICU Signed Date of Exam:12/04/19 CHEST 1 VIEW, AP/PA ONLY EXAMINATION: Chest radiograph, portable AP view. DATE: 12/04/2019 7:22 AM hours. INDICATION: 34-year-old male, tube placement. COMPARISON: Chest radiograph January 16, 2014. FINDINGS: The endotracheal tube is approximately 3.5 cm above the thao. The nasogastric tube is in the stomach. Heart size and mediastinal contours are unremarkable. There is no identified pneumothorax. There is no large pleural effusion. There is nonspecific right upper lobe airspace consolidation. IMPRESSION: 1. Nonspecific right upper lobe airspace consolidation. 2. Support lines and tubes as above. Dictated by: Dictated on workstation # [id number] Dict: 12/04/1923 Trans: 12/04/19904 CV [id number] Interpreted by: KIRK CENTENO MD Electronically signed by: KIRK CENTENO MD 12/04/19904 [facility] [place] [place] [facility] [id number] PT STATUS: ADM IN : 1985 PHYSICIAN: SNEHA MANZO MD ADMIT DATE: 12/04/19/ICU Signed Date of Exam:12/04/19 CT HEAD WO PROCEDURE: CT head without contrast. TECHNIQUE: Multiple contiguous axial images were obtained through the brain without the use of intravenous contrast. Auto Exposure Controls were utilized during the CT exam to meet ALARA standards for radiation dose reduction. DATE: December 04, 2019. COMPARISON: None. INDICATION: 34-year-old male, altered mental status. FINDINGS: There is soft tissue swelling superficial to the left orbit at its inferior aspect in the region of the left cheek. There is no identified radiopaque foreign body. The globes appear grossly intact. There is no identified retro-orbital hematoma. There is no identified skull fracture. The ventricles and cerebral spinal fluid spaces are of normal size and configuration for the patient's age. There is no mass effect or midline shift. There is no acute intracranial hemorrhage. There is no abnormal extra-axial fluid collection. The visualized portions of the paranasal sinuses, mastoid air cells and middle ears are well aerated. IMPRESSION: 1. Soft tissue swelling superficially located near the level of the inferior left orbit and left cheek which could relate to soft tissue contusion/hematoma. Recommend correlation clinically. 2. No identified acute intracranial abnormality. Dictated by: Dictated on workstation # [id number] Dict: 12/04/1911 Trans: 12/04/19905 [facility] [id number] Interpreted by: KIRK CENTENO MD Electronically signed by: KIRK CENTENO MD 12/04/19905 Assessment/Plan Admission Diagnosis Acute Respiratory Failure Admission Status: Inpatient Order (span 2 midnights) Reason for Inpatient Admission: see below Assessment and Plan Acute Respiratory Failure Acute Psychosis Continue on vent TeleICU consulted, appreciate assistance I spoke with Dr Harlan GUTIERREZ ordered, vent changes per TeleICU following results Add precedex for sedation due to hypotension and attempt to wean down propofol as able Rhabdomyolysis [place] Transaminitis s/p 2L in the ER Continue high volume fluid resuscitation Andres for accurate i/os Trend labs in AM Hypokalemia Replace per protocol Illicit drug use Will need social media editor consult when extubated Poison control contacted per ER Diagnosis/Problems Diagnosis/Problems (1) Acute psychosis Status: Acute (2) Respiratory failure Status: Acute Qualifiers: Chronicity: acute Respiratory failure complication: hypoxia and hypercapnia Qualified Codes: J96.01 - Acute respiratory failure with hypoxia; J96.02 - Acute respiratory failure with hypercapnia (3) Rhabdomyolysis Status: Acute Qualifiers: Rhabdomyolysis type: non-traumatic Qualified Codes: M62.82 - Rhabdomyolysis (4) Illicit drug use Status: Acute (5) Hypokalemia Status: Acute (6) Hypotension Status: Acute Qualifiers: Hypotension type: hypotension due to drug Qualified Codes: I95.2 - Hypotension due to drugs (7) [place] (acute kidney injury) Status: Acute (8) Transaminitis Status: Acute LEIDY ROMO MD Dec 04, 2019 08:44
[2019-12-04] MEDS: MIDAZOLAM DRIP 50 MG/NS 90 ML IV SCH ×2 (08:51)
[2019-12-04] MEDS ORDERED: ROCURONIUM 10 MG/ML 5 ML SYRINGE IV ONE (08:54)
[2019-12-04] MEDS ORDERED: fentaNYL INJECTION 100 MCG/2 ML AMP INJ ONE (08:54)
[2019-12-04] MEDS ORDERED: MIDAZOLAM 5 MG/5 ML (VERSED) VIAL IJ ONE (08:54)
[2019-12-04] MEDS: NS IV 1000 ML 1,000 ML IV SCH ×4 (09:10→22:53)
[2019-12-04] MEDS: DexMEDEtomidine 250 ML DRIP 250 ML IV SCH (09:11)
[2019-12-04] MEDS ORDERED: RT-ALBUTEROL SULF 2.5 MG/3 ML PRE-MIX VIAL INH PRN (09:15)
[2019-12-04 09:27] LABS: ABG BASE EXCESS -1.1 MMOL/L (-2.5-2.5); ABG OXYGEN SATURATION 93 % (94-100); ABG PCO2 46 MMHG (35-45); ABG PO2 71 MMHG (79-93); ABG TCO2 25.5 MMOL/L (21.0-31.0)
[2019-12-04 09:49] LABS: ABG PH 7.33 (7.37-7.43)
[2019-12-04 09:50] LABS: INSPIRED O2 35%; PATIENT TEMP 36.6; VENTILATOR YES
[2019-12-04 10:20] LABS: MAGNESIUM 1.8 MG/DL (1.6-2.4)
[2019-12-04] MEDS ORDERED: NS IV 1000 ML 1,000 ML IV SCH (16:00)
[2019-12-04 16:17] LABS: BUN/CREATININE RATIO 20; CARBON DIOXIDE 21 MMOL/L (21-32); CHLORIDE 113 MMOL/L (98-107); CREATINE KINASE 4239 U/L (30-200); CREATININE SERUM 1.04 MG/DL (0.60-1.30); GFR ESTIMATED > 60; GLUCOSE 122 MG/DL (70-105); MAGNESIUM 2.1 MG/DL (1.6-2.4); PHOSPHORUS 3.1 MG/DL (2.3-4.7); POTASSIUM 4.1 MMOL/L (3.6-5.0); SODIUM 141 MMOL/L (135-145)
--- NOTE | 2019-12-04 19:25 | NUR ---
TIMELINE NOTE: 0802: PATIENT ARRIVED FROM ED AND MOVED TO ICU BED, BSM APPLIED. PT RESTING WITH EYES CLOSED IN NAD. VITALS STABLE. 1000: PT SBP 90'S, TITRATING PROPOFOL DOWN TO BP. VERSED GTT AND PRECEDEX GTT INITIATED PER ORDER, SEE EMAR. 1200: PT RESTING COMFORTABLY IN BED IN NAD. VITALS UNCHANGED. 1500: PER POISON CONTROL, RECOMMENDING REPEAT LABS. DR ROMO NOTIFIED AND BMP, MAG, PHOS, AND CK. NOTIFIED OF PATIENTS CONTINUED SBP 80'S AND ORDER RECEIVED FOR NS 1000ML BOLUS. 1730: THIS RN CONSULTED WITH MULTIPLE OTHER ICU RNS AND CONCERN WITH INCREASED ST ELEVATION ON BEDSIDE SIDER. STAT EKG OBTAINED. THIS SHOWED ACUTE DC WITH ST ELEVATION. DR ROMO IMMEDIATELY NOTIFIED WITH ORDERS TO CONSULT DR LUNA AND STAT TROPONIN. PT IS IN NAD. SBP CONTINUES IN 80'S WITH MAP 62-65. NO NEW ORDERS FOR THIS. CONTINUE TO MONITOR. 181: DR LUNA NOTIFIED OF NEW CONSULT AND UPDATED ON PT CONDITION. ORDER RECEIVED FOR STAT ECHO. 1820: DR LUNA NOTIFIED OF TROPONIN OF 0.030. LOGISTICS OFFICER EN ROUTE TO HOSPITAL AT THIS TIME. 1830: ECHO HERE AND NOTIFIED TO CALL DR LUNA AFTER ECHO COMPLETE.
--- NOTE | 2019-12-04 19:33 | NUR ---
THIS RN DID NOTIFY POISON CONTROL OF NEW INCREASE IN ST ELEVATION. WILL CONSULT WITH THEIR PATHOLOGIST FOR ANY RECOMMENDATIONS IF DIFFERENT THAN WHAT CURRENT PLAN OF CARE CONSISTS OF.
[2019-12-04 21:46] LABS: CREATINE KINASE 3500 U/L (30-200)
[2019-12-04 21:52] LABS: CREATINE KINASE MB 5.4 NG/ML (<6.6)
--- NOTE | 2019-12-04 22:13 | NUR ---
2051 alid updated on patient condition, orders received for labs, [facility] no new orders.
--- NOTE | 2019-12-04 22:36 | NUR ---
Poison control spoke with this RN, updated on patient condition.
[2019-12-04] MEDS: ENOXAPARIN 40 MG/0.4 ML (LOVENOX) SYR SC SCH (22:55)
[2019-12-05] VITALS (30 sets, daily range): BP systolic 93–156; BP diastolic 55–120
[2019-12-05] MEDS: DexMEDEtomidine 250 ML DRIP 250 ML IV SCH ×2 (02:01→14:58)
[2019-12-05 03:27] LABS: BASOPHILS # (AUTO) 0.1 10^3/uL (0.0-0.1); BASOPHILS % (AUTO) 1 % (0-10); EOSINOPHILS # (AUTO) 0.2 10^3/uL (0.0-0.3); EOSINOPHILS % (AUTO) 2 % (0-10); HEMATOCRIT 36 % (40-54); HEMOGLOBIN 11.7 G/DL (13.3-17.7); LYMPHOCYTES # (AUTO) 2.9 X 10^3 (1.0-4.0); LYMPHOCYTES % (AUTO) 36 % (12-44); MEAN CORPUSCULAR HEMOGLOBIN 28 PG (25-34); MEAN CORPUSCULAR HGB CONC 33 G/DL (32-36); MEAN CORPUSCULAR VOLUME 84 FL (80-99); MEAN PLATELET VOLUME 10.1 FL (7.4-10.4); MONOCYTES # (AUTO) 0.6 X 10^3 (0.0-1.0); MONOCYTES % (AUTO) 7 % (0-12); NEUTROPHILS # (AUTO) 4.5 X 10^3 (1.8-7.8); NEUTROPHILS % (AUTO) 55 % (42-75); PLATELET COUNT 174 10^3/uL (130-400); RED CELL DISTRIBUTION WIDTH 13.7 % (10.0-14.5); WHITE BLOOD COUNT 8.2 10^3/uL (4.3-11.0)
[2019-12-05 03:35] LABS: CHLORIDE 115 MMOL/L (98-107); POTASSIUM 4.4 MMOL/L (3.6-5.0); SODIUM 142 MMOL/L (135-145)
[2019-12-05 03:36] LABS: ALBUMIN 3.2 GM/DL (3.2-4.5)
[2019-12-05 03:37] LABS: INR 1.2 (0.8-1.4); PROTHROMBIN TIME PATIENT 15.4 SEC (12.2-14.7)
[2019-12-05 03:38] LABS: GLUCOSE 113 MG/DL (70-105); TOTAL PROTEIN 5.5 GM/DL (6.4-8.2); TRIGLYCERIDES 125 MG/DL (<150)
[2019-12-05 03:39] LABS: CARBON DIOXIDE 19 MMOL/L (21-32)
[2019-12-05 03:40] LABS: BILIRUBIN,TOTAL 0.9 MG/DL (0.1-1.0)
[2019-12-05 03:41] LABS: PHOSPHORUS 2.1 MG/DL (2.3-4.7)
[2019-12-05 03:42] LABS: ALKALINE PHOSPHATASE 53 U/L (40-136); CREATININE SERUM 0.94 MG/DL (0.60-1.30); GFR ESTIMATED > 60
[2019-12-05 03:43] LABS: BILIRUBIN,DIRECT 0.3 MG/DL (0.0-0.3); BILIRUBIN,INDIRECT 0.6 MG/DL; BUN/CREATININE RATIO 21
[2019-12-05 03:45] LABS: ALANINE AMINOTRANSFERASE 41 U/L (0-55); CREATINE KINASE 3067 U/L (30-200)
[2019-12-05] MEDS: NS IV 1000 ML 1,000 ML IV SCH (04:11)
[2019-12-05 04:29] LABS: ABG BASE EXCESS -2.9 MMOL/L (-2.5-2.5); ABG OXYGEN SATURATION 77 % (94-100); ABG PCO2 34 MMHG (35-45); ABG PO2 42 MMHG (79-93); ABG TCO2 22.6 MMOL/L (21.0-31.0)
[2019-12-05 04:30] LABS: ALLENS TEST POSITIVE; INSPIRED O2 21; PATIENT TEMP 35.3; VENTILATOR YES
--- NOTE | 2019-12-05 04:34 | Pulmonary Consultation ---
History of Present Illness History of Present Illness Date Seen by Provider: Dec 05, 2019 Time Seen by Provider: 07:28 Date of Admission History of Present Illness 34yo presented via EMS on 12/03 to ED secondary to psychosis and acting erratically. He has been smoking cigarettes dipped in formaldehyde for 2 days and he was becoming quite aggressive and erratic. He was beating his head on the sidewalk. Law enforcement helped to restrain patient for his own protection and EMS was able to get an IV. They ultimately gave 2 mg of Ativan which calmed the patient significantly. O2 saturation low 90s uppon ED admisson. PT was found to have acute rhabdomyolysis and was intubated in the ED. I am consulted for pulmonary/ICU management. Allergies and Home Medications Allergies Coded Allergies: No Known Drug Allergies (Unverified , 01/16/14) Home Medications Doxycycline Hyclate 100 Mg Capsule, 1 EACH PO BID Prescribed by: MARY SILVA on 01/16/141904 Prednisone 20 Mg Tab, 40 MG PO DAILY Prescribed by: MARY SILVA on 01/16/141904 Past Oinjlzj-Gftqgp-Mtxbkw Hx Past Med/Social Hx: Reviewed Nursing Past Med/Soc Hx Patient Social History Alcohol Use: Rarely Uses Recreational Drug Use: Yes Drug of Choice: formaldehyde Smoking Status: Current Everyday Smoker Type Used: Cigarettes Recent Foreign Travel: No Contact w/Someone Who Travel: No Recent Infectious Disease Expo: No Past Medical History Surgeries: No Respiratory: Yes Asthma Cardiac: No Neurological: No Reproductive Disorders: No Sexually Transmitted Disease: No Gastrointestinal: No Musculoskeletal: No Endocrine: No Cancer: No Family Medical History Reviewed Nursing Family Hx From historical records as patient is not answering questions Review of Systems Time Seen by Provider: 07:28 Sepsis Event Evaluation Height, Weight, BMI Height: 5'5" Weight: 220lbs. oz. 99.644254es; 30.00 BMI Method:Stated Exam Exam Vital Signs Date Time Temp Pulse Resp B/P (MAP) Pulse Ox O2 Delivery O2 Flow Rate FiO2 12/05/19 04:19 35.3 12/05/19 03:06 55 18 100 21 12/05/19 02:01 56 92/61 12/05/19 02:00 56 18 97/61 (73) 100 Mechanical Ventilator 21.00 12/05/19 01:00 56 17 93/56 (68) 100 Mechanical Ventilator 21.00 12/05/19 01:00 57 12/05/19 00:06 35.8 12/05/19 00:00 100 Mechanical Ventilator 21 12/05/19 00:00 56 17 93/55 (68) 100 Mechanical Ventilator 21.00 12/04/19 23:00 57 18 97/64 (75) 99 Mechanical Ventilator 21.00 12/04/19 22:54 57 95/61 12/04/19 22:27 58 18 99 21 12/04/19 22:16 Mechanical Ventilator 21.00 12/04/19 22:00 58 18 90/63 (72) 100 Mechanical Ventilator 30.00 12/04/19 21:00 59 18 93/60 (71) 100 Mechanical Ventilator 30.00 12/04/19 20:00 60 17 89/63 (72) 100 Mechanical Ventilator 30.00 12/04/19 20:00 100 Mechanical Ventilator 25 12/04/19 19:46 35.8 12/04/19 19:00 Mechanical Ventilator 25.00 12/04/19 19:00 60 12/04/19 19:00 60 17 83/54 (64) 99 Mechanical Ventilator 30.00 12/04/19 18:36 90 17 100 25 12/04/19 18:00 61 15 87/55 (66) 100 Mechanical Ventilator 30.00 12/04/19 17:00 62 17 91/54 (66) 100 Mechanical Ventilator 30.00 12/04/19 16:00 35.8 12/04/19 16:00 Mechanical Ventilator 25 12/04/19 16:00 64 17 84/53 (63) 100 Mechanical Ventilator 30.00 12/04/19 15:10 65 18 99 25 12/04/19 15:00 66 18 86/57 (67) 99 Mechanical Ventilator 30.00 12/04/19 14:00 65 18 85/54 (64) 99 Mechanical Ventilator 30.00 12/04/19 13:02 67 12/04/19 13:00 67 17 91/58 (69) 100 Mechanical Ventilator 30.00 12/04/19 12:00 Mechanical Ventilator 25 12/04/19 12:00 70 17 100/58 (72) 99 Mechanical Ventilator 30.00 12/04/19 11:02 80 18 98 25 12/04/19 11:00 77 18 91/69 (76) 99 Mechanical Ventilator 30.00 12/04/19 10:00 85 18 100/55 (70) 99 Mechanical Ventilator 30.00 12/04/19 09:11 90 83/94 12/04/19 09:10 90 83/64 12/04/19 09:00 93 17 83/64 (70) 98 30.00 12/04/19 08:56 37.3 106 94 21 12/04/19 08:51 93 18 87/54 12/04/19 08:20 95 18 100 50 12/04/19 08:12 96 12/04/19 08:02 Mechanical Ventilator 30 12/04/19 08:00 113/70 (84) 30.00 12/04/19 08:00 36.6 12/04/19 07:44 96 18 98 70 12/04/19 07:28 103 18 98 70 12/04/19 07:25 37.3 97 17 130/99 (115) 99 12/04/19 07:10 108 139/103 I & O 12/05/19 07:00 Intake Total 4450 ml Output Total 1075 ml Balance 3375 ml Height & Weight Height: 5'5" Weight: 220lbs. oz. 99.853796jc; 30.00 BMI Method:Stated General Appearance: WD/WN, Other (intubated, resting comfortably) HEENT: Moist Mucous Membranes, Other (ETT in place, some edema around left eye) Neck: Normal Inspection; No JVD, No Thyromegaly Respiratory: Lungs Clear, Other (on vent) Cardiovascular: Regular Rate, Rhythm, No Murmur Capillary Refill: Less Than 3 Seconds Extremity: Normal Capillary Refill, Normal Inspection, No Pedal Edema Neurologic/Psychiatric: Other (sedated, resting comfortably) Skin: Normal Color, Warm/Dry, Tattoos/Piercings Results Lab Laboratory Tests 12/04/19 03:46 12/04/19 15:53 12/05/19 03:13 Assessment/Plan Assessment/Plan Acute respiratory failure -Continue vent Agitation/psychosis -currently sedated on vent Rhabdomyolysis -Continue IVF -Continue to monitor CK [place] -Monitor Leukocytosis - secondary to steroids PCP intoxication and marijuana -Education RONI PATEL DO Dec 05, 2019 04:34
[2019-12-05 04:39] LABS: NEUTROPHILS % (MANUAL) 50 %
[2019-12-05 04:40] LABS: ANISOCYTOSIS SLIGHT; ATYPICAL LYMPHOCYTES 2 %; EOSINOPHILS % (MANUAL) 3 %; HYPOCHROMASIA SLIGHT; LYMPHOCYTES % (MANUAL) 38 %; METAMYELOCYTES % 3 %; MONOCYTES % (MANUAL) 3 %; MYELOCYTES % 1 %; POIKILOCYTOSIS SLIGHT
[2019-12-05] MEDS: KCL 20 MEQ TAB (K-DUR) PO SCH (05:17)
[2019-12-05] MEDS: POTASSIUM CL 10MEQ/50ML IVPB 50 ML IV SCH (05:18)
[2019-12-05] MEDS: MAGNESIUM 1 GM/100 ML IVPB 100 ML IV SCH (05:18)
[2019-12-05] MEDS: methylPREDNISolone 40 MG/ML (Solu-MEDROL) VIAL IV SCH ×3 (06:16→19:40)
--- NOTE | 2019-12-05 08:34 | Diagnostic Imaging Report ---
INDICATION: Follow-up infiltrate COMPARISON: 12/04/2019 TECHNIQUE: Single radiograph of the chest dated 12/05/2019. FINDINGS: Endotracheal tube and enteric catheter are stable. The cardiac silhouette is stable. No significant pulmonary vascular congestion. Previously noted right upper lung opacities appear improved though not completely resolved. Additionally, linear platelike opacities are noted within the right midlung. Increasing left retrocardiac density is also noted. No significant pleural effusion. No pneumothorax. Osseous structures appear stable. IMPRESSION: New infiltrate versus atelectasis within the left lung base. Improved infiltrate within the right upper lung with persisting atelectasis and/or infiltrate within the right midlung. Unchanged lines and tubes. Dictated by: Dictated on workstation # [id number]
[2019-12-05] MEDS ORDERED: SODIUM PHOSPHATE INJ 30 MM in NS (IVPB) 250 ML IV ONE (09:00)
[2019-12-05] MEDS: MIDAZOLAM DRIP 50 MG/NS 90 ML IV SCH ×2 (09:18)
[2019-12-05] MEDS: PANTOPRAZOLE 40 MG (PROTONIX) VIAL IV SCH (09:20)
[2019-12-05] MEDS: LACTATED RINGERS 1,000 ML IV SCH ×5 (09:20→20:42)
--- NOTE | 2019-12-05 12:28 | Progress Note - Hospitalist ---
Subjective HPI/CC On Admission Date Seen by Provider: Dec 05, 2019 Time Seen by Provider: 09:40 Pt is a 34yoCM who presented to the ER due to acute psychosis. He is currently intubated and sedated and unable to provide any history. All history obtained from the records. Apparently police were called due to pt acting erratically. He has been smoking 'wet' (cigarettes dipped in formaldehyde) for the past two days and became increasingly erratic and aggressive so his friends called the police. He was outside of the house beating his head on the sidewalk and yelling and screaming. He was given 2mg of Ativan by EMS which helped to calm the patient for a short period of time. Unfortunately this was short lived and he became more agitated in the ER. He at first calmed with verbal direction but this was not effective senior living. requiring 500mg of Ketamine, 2mg Ativan x2, and 20mg of Geodon. Poison Control was contacted and believed this to be more consistent with synthetic marijuana intoxication. They recommended admission and checking CK. Unfortunately he did require intubation for airway protection. Subjective/Events-last exam he remains intubated and sedated. Objective Exam Vital Signs Vital Signs Date Time Temp Pulse Resp B/P (MAP) Pulse Ox O2 Delivery O2 Flow Rate FiO2 12/05/19 12:00 57 15 114/83 (93) 99 Mechanical Ventilator 21.00 12/05/19 12:00 35.6 12/05/19 07:42 21 Capillary Refill : Less Than 3 Seconds General Appearance: No Apparent Distress, WD/WN, Other (intubated and sedated) Respiratory: Lungs Clear, Normal Breath Sounds, No Respiratory Distress Cardiovascular: Regular Rate, Rhythm, No Murmur Gastrointestinal: Normal Bowel Sounds, Soft Extremity: Normal Inspection, No Pedal Edema Neurologic/Psychiatric: Other (sedated) Skin: Normal Color, Warm/Dry, Tattoos/Piercings Results/Procedures Lab Laboratory Tests 12/04/19 15:53 12/05/19 03:13 Patient resulted labs reviewed. Imaging: Reviewed Imaging Report Assessment/Plan Assessment and Plan Assess & Plan/Chief Complaint Acute Respiratory Failure Acute Psychosis Polysubstance abuse Continue on vent Pulmonology following, appreciate assistance Rhabdomyolysis [place] Transaminitis Continue high volume fluid resuscitation Lousie for accurate i/os renal function improving Hypokalemia continue to monitor and replace as needed DVT prophylaxis: Lovenox Diagnosis/Problems Diagnosis/Problems (1) Respiratory failure Status: Acute Qualifiers: Chronicity: acute Respiratory failure complication: hypoxia and hypercapnia Qualified Codes: J96.01 - Acute respiratory failure with hypoxia; J96.02 - Acute respiratory failure with hypercapnia (2) Acute psychosis Status: Acute (3) Illicit drug use Status: Acute (4) Rhabdomyolysis Status: Acute Qualifiers: Rhabdomyolysis type: non-traumatic Qualified Codes: M62.82 - Rhabdomyolysis (5) [place] (acute kidney injury) Status: Acute Clinical Quality Measures DVT/VTE Risk/Contraindication: Risk Factor Score Per Nursin RFS Level Per Nursing on Admit: 4+=Very High HERMILA DUMONT MD Dec 05, 2019 12:28
--- NOTE | 2019-12-05 13:22 | NUR ---
THIS RN SPOKE WITH POISON CONTROL AND UPDATED ON PATIENT CONDITION. TUBE FEED RESIDUALS 30ML, TUBE FEEDS INCREASED TO 30ML/HR.
--- NOTE | 2019-12-05 14:10 | NUR ---
"RD ASSESSMENT Est kcal needs: 1950 kcal | 20 kcal/kg Est Pro needs: 78 g Pro | 0.8 g Pro/kg Note pt is currently intubated/sedated. Note pt currently receiving following TF: Jevity 1.5 at rate of 30ml/hr with flushes of 150ml q6h. Current rate provides 1080 kcal (11 kcal/kg); 46 g Pro (0.5 g Pro/kg); and 1147ml free water (with flushes). Would recommend the following TF: Jevity 1.5 at goal rate of 55ml/hr. Recommend continuation to goal rate by increasing 10ml q6h as medically able and as tolerated. Monitor gastric residuals for tolerance. At goal rate, provides 1980 kcal (20 kcal/kg); 84 g Pro (0.9 g Pro/kg); and 1003ml free water. Flush with 150ml H2O q6h for hydration status. With flushes, provides 1603 ml free water. Will continue to follow and reassess as pt needs, intake, and status change. Christine May, MS, RD, LD"
[2019-12-05] MEDS: RT-ALBUTEROL SULF 2.5 MG/3 ML PRE-MIX VIAL INH SCH ×2 (14:15→21:06)
--- NOTE | 2019-12-05 14:46 | Consultation-Cardiology ---
HPI-Cardiology Cardiology Consultation: Date of Consultation 12/05/19 Date of Admission Attending Physician Selma Purcell MD Admitting Physician No,Local Physician Consulting Physician Cheli DIAZ MD HPI: Time Seen by a Provider: 11:00 Chief Complaint: EKG changes. This is a 34-year-old gentleman who was admitted due to acute psychosis and was intubated and put on a ventilator. Associated with drug abuse. He was found to have rhabdomyolysis associated with likely synthetic marijuana intoxication. Cardiology was called due to possible EKG abnormalities. Since the patient is i ntubated/ventilated history is taken by reviewing the chart. Review of Systems-Cardiology Review of Systems Constitutional: As described under HPI; No As described under HPI, No no symptoms reported, No chills, No fever, No lightheadedness Eyes: No As described under HPI, No no symptoms reported, No blindness, No b lurred vision, No contact lenses, No drainage, No decreased acuity, No foreign body sensation, No pain, No vision change Ears/Nose/Throat: No As described under HPI, No no symptoms reported, No chronic hearing loss, No ear discharge, No ear pain, No nasal drainage, No ulcerations Respiratory: No no symptoms reported; As described under HPI; No As described under HPI, No cough, No orthopnea, No shortness of breath, No SOB with excertion Cardiovascular: No no symptoms reported; As described under HPI; No As described under HPI, No chest pain, No edema, No irregular heart rate, No lightheadedness, No palpitations Gastrointestinal: No no symptoms reported, No As described under HPI, No abdomen distended, No abdominal pain, No blood streaked bowels, No constipation, No diarrhea, No nausea, No vomiting, No stool coloration changes Genitourinary: No As described under HPI, No burning, No dysuria, No discharge, No frequency, No flank pain, No hematuria, No urgency Skin: No rash, No skin related problems, No ulcerations Psychiatric/Neurological: As described under HPI; No anxiety, No depression, No seizure, No focal weakness, No syncope Hematologic: No bleeding abnormalities GCS-[id number] Hx Patient Social History Alcohol Use: Rarely Uses Recreational Drug Use: Yes Drug of Choice: formaldehyde Smoking Status: Current Everyday Smoker Type Used: Cigarettes Recent Foreign Travel: No Recent Infectious Disease Expo: No Past Medical History PMH As described under Assessment. Allergies and Home Medications Allergies Coded Allergies: No Known Drug Allergies (Unverified , 01/16/14) Home Medications Doxycycline Hyclate 100 Mg Capsule, 1 EACH PO BID Prescribed by: MARY SILVA on 01/16/141904 Prednisone 20 Mg Tab, 40 MG PO DAILY Prescribed by: MARY SILVA on 01/16/141904 Patient Home Medication List Home Medication List Reviewed: Yes Physical Exam-Cardiology Physical Exam Vital Signs/I&O 12/05/19 12/05/19 12/05/19 12/05/19 03:00 03:06 04:00 04:00 Pulse 55 55 55 Resp 18 18 17 B/P (MAP) 94/60 (71) 98/72 (81) Pulse Ox 100 100 100 100 O2 Delivery Mechanical Ventilator Mechanical Ventilator Mechanical Ventilator O2 Flow Rate 21.00 21.00 FiO2 21 21 12/05/19 12/05/19 12/05/19 12/05/19 04:19 05:00 06:00 06:25 Temp 35.3 Pulse 54 54 56 Resp 18 16 16 B/P (MAP) 102/79 (87) 103/75 (84) Pulse Ox 100 100 100 O2 Delivery Mechanical Ventilator Mechanical Ventilator O2 Flow Rate 21.00 21.00 FiO2 21 12/05/19 12/05/19 12/05/19 12/05/19 07:00 07:00 07:42 07:42 Temp 35.5 Pulse 56 57 Resp 16 B/P (MAP) 100/79 (86) Pulse Ox 99 100 O2 Delivery Mechanical Ventilator Mechanical Ventilator O2 Flow Rate 21.00 FiO2 21 12/05/19 12/05/19 12/05/19 12/05/19 08:00 09:00 09:18 10:00 Pulse 55 55 55 55 Resp 15 16 16 16 B/P (MAP) 110/83 (92) 104/84 (91) 108/83 111/73 (86) Pulse Ox 100 100 100 O2 Delivery Mechanical Ventilator Mechanical Ventilator Mechanical Ventilator O2 Flow Rate 21.00 21.00 21.00 12/05/19 12/05/19 12/05/19 12/05/19 11:00 12:00 12:00 12:30 Temp 35.6 Pulse 56 57 Resp 16 15 B/P (MAP) 115/77 (90) 114/83 (93) Pulse Ox 99 99 98 O2 Delivery Mechanical Ventilator Mechanical Ventilator Mechanical Ventilator O2 Flow Rate 21.00 21.00 FiO2 21 12/05/19 12/05/19 12/05/19 12/05/19 12:58 13:00 13:17 14:00 Temp 35.6 Pulse 57 57 57 58 Resp 16 16 B/P (MAP) 122/85 (97) 123/89 (100) Pulse Ox 99 99 98 O2 Delivery Mechanical Ventilator Mechanical Ventilator O2 Flow Rate 21.00 21.00 FiO2 21 12/05/19 00:00 Intake Total 3100 ml Output Total 720 ml Balance 2380 ml Capillary Refill : Less Than 3 Seconds Constitutional: appears stated age; No apparent distress; well-developed, well- nourished, other (intubated/ventilated.) HEENT: PERRL; No discharge; hearing is well preserved, oral hygience is good; No ulceration, No xanthelasmas are seen Neck: No carotid bruit; carotid pulses are 2 + bilaterally Respiratory: chest is bilaterally symmetric, lungs clear to auscultation Cardiovascular: regular rate-rhythm, S1 and S2 Gastrointestinal: soft, audible bowel sounds; No spleenomegaly Rectal: deferred Extremities: normal range of motion, non-tender, normal inspection; No clubbing, No cyanosis; no lower extremity edema bilateral; No significant edema Neurologic/Psychiatric: other (intubated/ventilated.) Skin: warm/dry; No rash, No ulcerations Data Review Labs Laboratory Tests 12/04/19 15:53: Sodium Level 141, Potassium Level 4.1, Chloride Level 113H, Carbon Dioxide Level 21, Anion Gap 7, Blood Urea Nitrogen 21H, Creatinine 1.04, Estimat Glomerular Filtration Rate > 60, BUN/Creatinine Ratio 20, Glucose Level 122H, Calcium Level 8.0L, Phosphorus Level 3.1, Magnesium Level 2.1, Total Creatine Kinase 4239#H, Troponin I 0.030H 12/04/19 17:15: Glucometer 125H 12/04/19 21:09: Total Creatine Kinase 3500#H, Troponin I < 0.028, Creatine Kinase MB 5.4 12/05/19 03:13: Sodium Level 142, Potassium Level 4.4, Chloride Level 115H, Carbon Dioxide Level 19L, Anion Gap 8, Blood Urea Nitrogen 20H, Creatinine 0.94, Estimat Glomerular Filtration Rate > 60, BUN/Creatinine Ratio 21, Glucose Level 113H, Calcium Level 8.0L, Phosphorus Level 2.1L, Magnesium Level 2.0, Total Creatine Kinase 3067#H, White Blood Count 8.2, Red Blood Count 4.26L, Hemoglobin 11.7L, Hematocrit 36L, Mean Corpuscular Volume 84, Mean Corpuscular Hemoglobin 28, Mean Corpuscular Hemoglobin Concent 33, Red Cell Distribution Width 13.7, Platelet Count 174, Mean Platelet Volume 10.1, Neutrophils (%) (Auto) 55, Lymphocytes (%) (Auto) 36, Monocytes (%) (Auto) 7, Eosinophils (%) (Auto) 2, Basophils (%) (Auto) 1, Neutrophils # (Auto) 4.5, Lymphocytes # (Auto) 2.9, Monocytes # (Auto) 0.6, Eosinophils # (Auto) 0.2, Basophils # (Auto) 0.1, Neutrophils % (Manual) 50, Lymphocytes % (Manual) 38, Monocytes % (Manual) 3, Eosinophils % (Manual) 3, Metamyelocytes % 3, Myelocytes % 1, Atypical Lymphocytes 2, Hypochromasia SLIGHT, Poikilocytosis SLIGHT, Anisocytosis SLIGHT, Prothrombin Time 15.4H, INR Comment 1.2, Total Bilirubin 0.9, Direct Bilirubin 0.3, Indirect Bilirubin 0.6, Aspartate Amino Transf (AST/SGOT) 55H, Alanine Aminotransferase (ALT/SGPT) 41, Alkaline Phosphatase 53, Total Protein 5.5L, Albumin 3.2, Triglycerides Level 125, Procalcitonin 0.09 12/05/19 04:10: Blood Gas Puncture Site RIGHT RADIAL, Blood Gas Patient Temperature 35.3, Arterial Blood pH 7.40, Arterial Blood Partial Pressure CO2 34L, Arterial Blood Partial Pressure O2 42L, Arterial Blood HCO3 22L, Arterial Blood Total CO2 22.6, Arterial Blood Oxygen Saturation 77L, Arterial Blood Base Excess -2.9L, Nino Test POSITIVE, Blood Gas Ventilator Setting YES, Blood Gas Inspired Oxygen 21 Microbiology 12/04/19 MRSA Screen - Final, Complete MRSA not isolated 12/04/19 Urine Culture - Final, Complete NO GROWTH ECG Impression ECG Initial ECG Rhythm: Normal Sinus Comment Early repolarization pattern in a young male. A/P-Cardiology Assessment/Admission Diagnosis ST elevation on EKG are consistent with early repolarization pattern in a young male. Drug overdose, Intubated/ventilated. Severe cardiomyopathy. Rhabdomyolysis Plan ST elevation on EKG are consistent with early repolarization pattern in a young male. Negative serial troponin. Drug overdose, defer to the primary team. Intubated/ventilated. Severe cardiomyopathy. Echocardiogram done 12/04/2019 shows an EF of 25-30 percent. Likely nonischemic cardiomyopathy. Rhabdomyolysis, improving CK levels. We will gradually institute cardiomyopathy medications as the patient gets better. Dr. Tejeda to take over cardiology care tomorrow. Thank you for your consultation. Please call me if you have any questions. Milli Diaz MD, FACP, FACC, FSCAI, FHRS, CCDS Interventional Cardiology Cardiac Electrophysiology Vascular Medicine and Endovascular Interventions Clinical Quality Measures DVT/VTE Risk/Contraindication: Risk Factor Score Per Nursin RFS Level Per Nursing on Admit: 4+=Very High Cheli DIAZ MD Dec 05, 2019 14:46
[2019-12-05] MEDS ORDERED: LACTATED RINGERS 1,000 ML IV SCH (18:00)
[2019-12-05 19:10] LABS: CHLORIDE 115 MMOL/L (98-107); POTASSIUM 5.1 MMOL/L (3.6-5.0); SODIUM 142 MMOL/L (135-145)
[2019-12-05 19:12] LABS: CALCIUM 8.6 MG/DL (8.5-10.1); GLUCOSE 137 MG/DL (70-105)
[2019-12-05 19:14] LABS: CARBON DIOXIDE 17 MMOL/L (21-32)
[2019-12-05 19:16] LABS: CREATININE SERUM 0.79 MG/DL (0.60-1.30); GFR ESTIMATED > 60
[2019-12-05 19:17] LABS: BUN/CREATININE RATIO 24
[2019-12-05] MEDS: ENOXAPARIN 40 MG/0.4 ML (LOVENOX) SYR SC SCH (21:58)
[2019-12-06] VITALS (31 sets, daily range): BP systolic 131–171; BP diastolic 90–125
--- NOTE | 2019-12-06 00:22 | NUR ---
0022 E- ICU CONTACTED REGARDING PATIENTS BLOOD PRESSURE, NO NEW ORDERS AT THIS TIME. TO NOTIFY IF INCREASES.
[2019-12-06] MEDS: methylPREDNISolone 40 MG/ML (Solu-MEDROL) VIAL IV SCH (00:27)
[2019-12-06] MEDS: LACTATED RINGERS 1,000 ML IV SCH ×4 (01:39→22:55)
[2019-12-06] MEDS: RT-ALBUTEROL SULF 2.5 MG/3 ML PRE-MIX VIAL INH SCH ×4 (01:49→22:38)
[2019-12-06 04:00] LABS: BASOPHILS % (AUTO) 0 % (0-10); EOSINOPHILS % (AUTO) 0 % (0-10); HEMATOCRIT 40 % (40-54); HEMOGLOBIN 13.4 G/DL (13.3-17.7); LYMPHOCYTES # (AUTO) 0.6 X 10^3 (1.0-4.0); LYMPHOCYTES % (AUTO) 5 % (12-44); MEAN CORPUSCULAR HEMOGLOBIN 28 PG (25-34); MEAN CORPUSCULAR HGB CONC 34 G/DL (32-36); MEAN CORPUSCULAR VOLUME 82 FL (80-99); MEAN PLATELET VOLUME 10.6 FL (7.4-10.4); MONOCYTES # (AUTO) 0.5 X 10^3 (0.0-1.0); MONOCYTES % (AUTO) 4 % (0-12); NEUTROPHILS # (AUTO) 10.7 X 10^3 (1.8-7.8); NEUTROPHILS % (AUTO) 91 % (42-75); PLATELET COUNT 217 10^3/uL (130-400); WHITE BLOOD COUNT 11.8 10^3/uL (4.3-11.0)
[2019-12-06 04:09] LABS: POTASSIUM 4.3 MMOL/L (3.6-5.0); SODIUM 145 MMOL/L (135-145)
--- NOTE | 2019-12-06 04:09 | Pulmonary Progress Note ---
HAYDEE LYONS,MED STUDENT 12/06/19 0409: Subjective Date Seen by a Provider: Dec 06, 2019 Time Seen by a Provider: 03:50 Subjective/Events-last exam Patient remains intubated and sedated. Sepsis Event Evaluation Height, Weight, BMI Height: 5'5" Weight: 220lbs. oz. 99.668042zn; 30.00 BMI Method:Stated Exam Exam Vital Signs Date Time Temp Pulse Resp B/P (MAP) Pulse Ox O2 Delivery O2 Flow Rate FiO2 12/06/19 03:00 87 27 162/116 (131) 93 Mechanical Ventilator 40.00 12/06/19 02:40 Mechanical Ventilator 40.00 12/06/19 02:00 78 22 165/123 (137) 93 Mechanical Ventilator 30.00 12/06/19 01:49 62 16 98 30 12/06/19 01:45 Mechanical Ventilator 30.00 12/06/19 01:00 73 12/06/19 01:00 73 19 161/123 (136) 91 Mechanical Ventilator 21.00 12/06/19 00:00 98 Mechanical Ventilator 21 12/06/19 00:00 70 15 159/125 (136) 93 Mechanical Ventilator 21.00 12/05/19 23:59 36.1 12/05/19 23:27 70 157/119 12/05/19 23:00 69 16 156/118 (131) 94 Mechanical Ventilator 21.00 12/05/19 22:00 78 35 145/120 (128) 94 Mechanical Ventilator 21.00 12/05/19 21:06 62 16 98 21 12/05/19 21:00 63 16 139/105 (116) 99 Mechanical Ventilator 21.00 12/05/19 20:53 98 Mechanical Ventilator 21 12/05/19 20:00 63 16 139/103 (115) 99 Mechanical Ventilator 21.00 12/05/19 20:00 36.1 12/05/19 19:00 63 16 135/102 (113) 98 Mechanical Ventilator 21.00 12/05/19 19:00 63 12/05/19 18:00 65 17 144/108 (120) 99 Mechanical Ventilator 21.00 12/05/19 17:00 63 15 144/112 (123) 98 Mechanical Ventilator 21.00 12/05/19 16:12 98 Mechanical Ventilator 21 12/05/19 16:00 61 15 146/101 (116) 99 Mechanical Ventilator 21.00 12/05/19 16:00 35.8 12/05/19 15:00 63 15 140/101 (114) 98 Mechanical Ventilator 21.00 12/05/19 14:58 63 137/98 12/05/19 14:58 63 137/98 12/05/19 14:15 58 16 98 21 12/05/19 14:00 58 16 123/89 (100) 98 Mechanical Ventilator 21.00 12/05/19 13:17 35.6 57 99 21 12/05/19 13:00 57 16 122/85 (97) 99 Mechanical Ventilator 21.00 12/05/19 12:58 57 12/05/19 12:30 98 Mechanical Ventilator 21 12/05/19 12:00 57 15 114/83 (93) 99 Mechanical Ventilator 21.00 12/05/19 12:00 35.6 12/05/19 11:00 56 16 115/77 (90) 99 Mechanical Ventilator 21.00 12/05/19 10:00 55 16 111/73 (86) 100 Mechanical Ventilator 21.00 12/05/19 09:45 55 16 100 21 12/05/19 09:18 55 16 108/83 12/05/19 09:00 55 16 104/84 (91) 100 Mechanical Ventilator 21.00 12/05/19 08:00 55 15 110/83 (92) 100 Mechanical Ventilator 21.00 12/05/19 07:42 100 Mechanical Ventilator 21 12/05/19 07:42 35.5 12/05/19 07:00 57 12/05/19 07:00 56 16 100/79 (86) 99 Mechanical Ventilator 21.00 12/05/19 06:25 56 16 100 21 12/05/19 06:00 54 16 103/75 (84) 100 Mechanical Ventilator 21.00 12/05/19 05:00 54 18 102/79 (87) 100 Mechanical Ventilator 21.00 12/05/19 04:19 35.3 I & O 12/06/19 07:00 Intake Total 5412 ml Output Total 1600 ml Balance 3812 ml Height & Weight Height: 5'5" Weight: 220lbs. oz. 99.355886uh; 30.00 BMI Method:Stated General Appearance: No Apparent Distress, WD/WN, Other (intubated and sedated) HEENT: Moist Mucous Membranes, Other (ETT in place, some edema around left eye) Neck: Normal Inspection; No JVD, No Thyromegaly Respiratory: Lungs Clear, Normal Breath Sounds, No Respiratory Distress Cardiovascular: Regular Rate, Rhythm, No Murmur Capillary Refill: Less Than 3 Seconds Extremity: Normal Inspection, No Pedal Edema Neurologic/Psychiatric: Other (sedated) Skin: Normal Color, Warm/Dry, Tattoos/Piercings Results Lab Laboratory Tests 12/04/19 15:53 12/05/19 03:13 12/05/19 18:36 12/06/19 03:40 Assessment/Plan Assessment/Plan Acute respiratory failure -sedated and on vent Rhabdomyolysis [place] -continue LR at 200mL/hr -CK improving, now 2141 Hypokalemia -resolved POOL HUERTA DO 12/06/19 0558: Subjective Time Seen by a Provider: 05:53 Subjective/Events-last exam Pt is agitated on vent. Exam Exam General Appearance: No Apparent Distress, WD/WN, Other (sedated on vent) HEENT: Moist Mucous Membranes, Other (ETT in place, some edema around left eye) Neck: Normal Inspection; No JVD, No Thyromegaly Respiratory: Lungs Clear, Normal Breath Sounds, No Respiratory Distress Cardiovascular: Regular Rate, Rhythm, No Murmur Extremity: Normal Inspection, No Pedal Edema Neurologic/Psychiatric: Other (sedated) Skin: Normal Color, Warm/Dry, Tattoos/Piercings Assessment/Plan Assessment/Plan Acute respiratory failure -Continue vent will plan on extubating tomorrow if pt is doing better. -Pt is now requiring 40% oxygen yesterday was on 21% -ABG pending Agitation/psychosis -Start risperadol -Haldol PRN Rhabdomyolysis -Continue IVF -Continue to monitor CK CAR[place] -Monitor Leukocytosis - secondary to steroids PCP intoxication -Education Supervisory-Addendum Brief Verification & Attestation Participated in pt care: history, MDM, physical Personally performed: exam, history Care discussed with: Medical Student Procedures: n/a Verification and Attestation of Medical Student E/M Service A medical student performed and documented this service in my presence. I reviewed and verified all information documented by the medical student and made modifications to such information, when appropriate. I personally performed the physical exam and medical decision making. Pool Huerta, Dec 06, 2019,07:39 HAYDEE LYONS,MED STUDENT Dec 06, 2019 04:09 POOL HUERTA DO Dec 06, 2019 05:58
[2019-12-06 04:10] LABS: CALCIUM 9.1 MG/DL (8.5-10.1); GLUCOSE 149 MG/DL (70-105)
[2019-12-06 04:12] LABS: CARBON DIOXIDE 18 MMOL/L (21-32)
[2019-12-06 04:14] LABS: CREATININE SERUM 0.92 MG/DL (0.60-1.30); GFR ESTIMATED > 60; PHOSPHORUS 2.8 MG/DL (2.3-4.7)
[2019-12-06 04:15] LABS: BUN/CREATININE RATIO 18
[2019-12-06 04:17] LABS: CREATINE KINASE 2142 U/L (30-200)
[2019-12-06 04:19] LABS: CHLORIDE 114 MMOL/L (98-107)
[2019-12-06] MEDS: DexMEDEtomidine 250 ML DRIP 250 ML IV SCH ×3 (05:49→19:29)
[2019-12-06 06:31] LABS: ABG OXYGEN SATURATION 94 % (94-100); ABG PCO2 41 MMHG (35-45); ABG PH 7.36 (7.37-7.43); ABG PO2 78 MMHG (79-93); ABG TCO2 23.8 MMOL/L (21.0-31.0)
[2019-12-06 06:34] LABS: ALLENS TEST POSITIVE
[2019-12-06 06:35] LABS: INSPIRED O2 40; PATIENT TEMP 36.8; VENTILATOR NO
[2019-12-06] MEDS: POTASSIUM CL 10MEQ/50ML IVPB 50 ML IV SCH (07:03)
[2019-12-06] MEDS: MAGNESIUM 1 GM/100 ML IVPB 100 ML IV SCH (07:03)
[2019-12-06] MEDS: KCL 20 MEQ TAB (K-DUR) PO SCH (07:04)
[2019-12-06] MEDS: MIDAZOLAM DRIP 50 MG/NS 90 ML IV SCH ×4 (07:29→23:46)
[2019-12-06] MEDS: PANTOPRAZOLE 40 MG (PROTONIX) VIAL IV SCH (08:01)
[2019-12-06] MEDS: risperiDONE 2 MG (RisperDAL) TAB PO SCH ×2 (08:02→20:06)
--- NOTE | 2019-12-06 08:02 | Diagnostic Imaging Report ---
INDICATION: Follow-up, on a ventilator. Overdose and kidney failure. EXAMINATION: Chest dated 12/06/2019 COMPARISON: 12/05/2019 FINDINGS: There is a feeding tube tip in the left upper quadrant. ET tube tip is stable. The heart is slightly prominent. Pulmonary vasculature normal in appearance. There is atelectasis at the left lung base. There are no effusions. No pneumothorax. IMPRESSION: 1. Tubes as described with overall stable appearance of the chest. Dictated by: Dictated on workstation # [id number]
--- NOTE | 2019-12-06 08:36 | NUR ---
UNABLE TO SPEAK WITH THE PT AT THIS TIME- I DID REACH OUT TO HIS EMERGENCY CONTACT DASHAWN (MOTHER). INFORMATION SHE WAS ABLE TO GIVE ME WAS THAT NO HE WAS NOT TAKING ANY MEDICATIONS BUT SAID AT ONE TIME HE STARTED MEDS BUT SHE KNEW HE HAD NEVER REFILLED THEM AND DIDNT KEEP TAKING THEM. I ASKED IF HE HAD A PRIMARY DR EITHER IN [place] (WHERE HE WAS PREVIOUSLY LIVING) AND ONE HERE IN [place] AND SHE DID NOT THINK HE HAD BEEN TO A PROVIDER FOR AWHILE. FOR THIS REASON I DID SET THE MED REC TO NO MEDS. WHEN I ASKED ABOUT A PREFERRED PHARMACY SHE SAID [facility]- I GAVE HER A FEW OPTIONS ([facility] AND [facility]) AND SHE CHOSE [facility]. I LET HER KNOW THAT WHEN HE IS BEING DISCHARGED IF HE WANTS TO GO SOMEWHERE ELSE HE CAN AND THAT HER CHOICE ISNT SET IN [place].
[2019-12-06] MEDS ORDERED: FUROSEMIDE 40 MG/4 ML INJ (LASIX) IVP NR (09:15)
--- NOTE | 2019-12-06 09:29 | NUR ---
JEVITY 1.5 T.F. RESTARTED AT THIS TIME AT 30ML/HR AND 150ML WATER Q6 HRS.
--- NOTE | 2019-12-06 11:14 | Progress Note - Hospitalist ---
Subjective HPI/CC On Admission Date Seen by Provider: Dec 06, 2019 Time Seen by Provider: 09:05 Pt is a 34yoCM who presented to the ER due to acute psychosis. He is currently intubated and sedated and unable to provide any history. All history obtained from the records. Apparently police were called due to pt acting erratically. He has been smoking 'wet' (cigarettes dipped in formaldehyde) for the past two days and became increasingly erratic and aggressive so his friends called the police. He was outside of the house beating his head on the sidewalk and yelling and screaming. He was given 2mg of Ativan by EMS which helped to calm the patient for a short period of time. Unfortunately this was short lived and he became more agitated in the ER. He at first calmed with verbal direction but this was not effective custodial. requiring 500mg of Ketamine, 2mg Ativan x2, and 20mg of Geodon. Poison Control was contacted and believed this to be more consistent with synthetic marijuana intoxication. They recommended admission and checking CK. Unfortunately he did require intubation for airway protection. Subjective/Events-last exam Patient remains intubated and sedated. Objective Exam Vital Signs Vital Signs Date Time Temp Pulse Resp B/P (MAP) Pulse Ox O2 Delivery O2 Flow Rate FiO2 12/06/19 10:27 Mechanical Ventilator 35.00 12/06/19 10:23 97 30 90 30 12/06/19 10:00 138/92 (107) 12/06/19 08:00 36.7 Capillary Refill : Less Than 3 SecondsLess Than 3 Seconds General Appearance: No Apparent Distress, WD/WN, Other (Intubated and sedated) Respiratory: Lungs Clear, Normal Breath Sounds, No Respiratory Distress, Other (Intubated and mechanically ventilated) Cardiovascular: Regular Rate, Rhythm, No Murmur Gastrointestinal: Normal Bowel Sounds, Soft Extremity: Normal Inspection, Pedal Edema Neurologic/Psychiatric: Other (sedated) Skin: Normal Color, Warm/Dry Results/Procedures Lab Laboratory Tests 12/05/19 18:36 12/06/19 03:40 Patient resulted labs reviewed. Imaging: Reviewed Imaging Report Assessment/Plan Assessment and Plan Assess & Plan/Chief Complaint Acute Respiratory Failure Acute Psychosis Polysubstance abuse Continue on vent Pulmonology following, appreciate assistance Started on Risperdal Rhabdomyolysis Decrease IV fluids Give Lasix once and assess response DVT prophylaxis: Lovenox Hypokalemia, resolved [place], resolved Diagnosis/Problems Diagnosis/Problems (1) Respiratory failure Status: Acute Qualifiers: Chronicity: acute Respiratory failure complication: hypoxia and hypercapnia Qualified Codes: J96.01 - Acute respiratory failure with hypoxia; J96.02 - Acute respiratory failure with hypercapnia (2) Acute psychosis Status: Acute (3) Illicit drug use Status: Acute (4) Rhabdomyolysis Status: Acute Qualifiers: Rhabdomyolysis type: non-traumatic Qualified Codes: M62.82 - Rhabdomyolysis (5) [place] (acute kidney injury) Status: Acute Clinical Quality Measures DVT/VTE Risk/Contraindication: Risk Factor Score Per Nursin RFS Level Per Nursing on Admit: 4+=Very High HERMILA DUMONT MD Dec 06, 2019 11:14
--- NOTE | 2019-12-06 11:22 | Progress Note - Cardiology ---
Cardiology SOAP Progress Note Subjective: Intubated and sedated Objective: I&O/Vital Signs 12/06/19 12/06/19 12/06/19 12/06/19 20:00 20:00 20:52 20:56 Pulse 118 108 107 Resp 32 24 B/P (MAP) 156/102 (120) 156/101 Pulse Ox 91 89 90 O2 Delivery Mechanical Ventilator Mechanical Ventilator Mechanical Ventilator O2 Flow Rate 35.00 40.00 FiO2 35 12/06/19 12/06/19 12/06/19 12/06/19 21:00 22:00 22:29 23:00 Pulse 107 102 102 98 Resp 18 17 20 17 B/P (MAP) 146/91 (109) 145/96 (112) 151/103 (119) Pulse Ox 89 91 93 95 O2 Delivery Mechanical Ventilator Mechanical Ventilator Mechanical Ventilator O2 Flow Rate 40.00 40.00 40.00 FiO2 40 12/06/19 12/06/19 12/06/19 12/07/19 23:46 23:47 23:58 00:00 Temp 37.3 Pulse 96 96 Resp 17 B/P (MAP) 148/97 148/97 Pulse Ox 95 O2 Delivery Mechanical Ventilator FiO2 40 12/07/19 12/07/19 12/07/19 12/07/19 00:00 01:00 01:00 02:00 Pulse 92 92 92 90 Resp 16 16 16 B/P (MAP) 148/98 (115) 144/94 (111) 141/94 (110) Pulse Ox 95 95 95 O2 Delivery Mechanical Ventilator Mechanical Ventilator Mechanical Ventilator O2 Flow Rate 40.00 40.00 40.00 12/07/19 12/07/19 12/07/19 12/07/19 02:23 02:28 02:41 03:00 Pulse 90 90 96 96 Resp 16 17 B/P (MAP) 139/92 144/95 140/95 (110) Pulse Ox 96 96 O2 Delivery Mechanical Ventilator O2 Flow Rate 40.00 FiO2 40 12/07/19 12/07/19 12/07/19 12/07/19 04:00 04:00 04:00 05:00 Temp 37.1 Pulse 94 91 Resp 12 15 B/P (MAP) 139/96 (110) 139/94 (109) Pulse Ox 95 94 95 O2 Delivery Mechanical Ventilator Mechanical Ventilator Mechanical Ventilator O2 Flow Rate 40.00 40.00 FiO2 40 12/07/19 12/07/19 12/07/19 12/07/19 05:36 06:00 06:57 07:18 Temp 37.1 Pulse 91 89 88 Resp 15 20 B/P (MAP) 139/97 139/93 (108) Pulse Ox 97 94 O2 Delivery Mechanical Ventilator O2 Flow Rate 40.00 FiO2 30 12/07/19 07:20 Pulse Ox 92 O2 Delivery Mechanical Ventilator FiO2 30 12/07/19 00:00 Intake Total 3402.5 ml Output Total 5045 ml Balance -1642.5 ml Weight (Pounds): 220 Weight (Calculated Kilograms): 99.195149 Constitutional: appears stated age; No apparent distress; well-developed, well- nourished, other (intubated/ventilated.) Respiratory: chest is bilaterally symmetric, lungs clear to auscultation Cardiovascular: regular rate-rhythm, S1 and S2 Gastrointestional: soft, audible bowel sounds Extremities: no lower extremity edema bilateral Neurologic/Psychiatric: other (intubated/ventilated.) Skin: warm/dry; No rash, No ulcerations; other (abrasions to face) Results/Procedures: Labs Laboratory Tests 12/07/19 03:05: White Blood Count 14.5H, Red Blood Count 4.18L, Hemoglobin 11.7L, Hematocrit 35L , Mean Corpuscular Volume 84, Mean Corpuscular Hemoglobin 28, Mean Corpuscular Hemoglobin Concent 33, Red Cell Distribution Width 13.8, Platelet Count 182, Mean Platelet Volume 10.7H, Neutrophils (%) (Auto) 82H, Lymphocytes (%) (Auto) 12, Monocytes (%) (Auto) 6, Eosinophils (%) (Auto) 0, Basophils (%) (Auto) 0, Neutrophils # (Auto) 11.9H, Lymphocytes # (Auto) 1.8, Monocytes # (Auto) 0.8, Eosinophils # (Auto) 0.0, Basophils # (Auto) 0.0, Sodium Level 149H, Potassium Level 3.8, Chloride Level 112H, Carbon Dioxide Level 25, Anion Gap 12, Blood Urea Nitrogen 11, Creatinine 0.82, Estimat Glomerular Filtration Rate > 60, BUN/Creatinine Ratio 13, Glucose Level 119H, Calcium Level 8.6, Corrected Calciu m 9.4, Phosphorus Level 3.0, Magnesium Level 2.0, Total Bilirubin 0.2, Aspartate Amino Transf (AST/SGOT) 53H, Alanine Aminotransferase (ALT/SGPT) 110H, Alkaline Phosphatase 67, Total Creatine Kinase 913H, Total Protein 5.8L, Albumin 3.0L, Triglycerides Level 412#H 12/07/19 03:23: Blood Gas Puncture Site RIGHT RADIAL, Blood Gas Patient Temperature 37.1, Arterial Blood pH 7.43, Arterial Blood Partial Pressure CO2 47H, Arterial Blood Partial Pressure O2 80, Arterial Blood HCO3 31H, Arterial Blood Total CO2 32.0H, Arterial Blood Oxygen Saturation 94, Arterial Blood Base Excess 6.3H, Nino Test POSITIVE, Blood Gas Ventilator Setting YES, Blood Gas Inspired Oxygen 40 Microbiology 12/04/19 MRSA Screen - Final, Complete MRSA not isolated 12/04/19 Urine Culture - Final, Complete NO GROWTH Procedures NAME: SHOAIB PHELPS [facility] REC#: [id number] PT STATUS: ADM IN : 1985 PHYSICIAN: LEIDY ROMO MD ADMIT DATE: 12/04/19/ICU Signed Date of Exam:12/06/19 CHEST 1 VIEW, AP/PA ONLY INDICATION: Follow-up, on a ventilator. Overdose and kidney failure. EXAMINATION: Chest dated 12/06/2019 COMPARISON: 12/05/2019 FINDINGS: There is a feeding tube tip in the left upper quadrant. ET tube tip is stable. The heart is slightly prominent. Pulmonary vasculature normal in appearance. There is atelectasis at the left lung base. There are no effusions. No pneumothorax. IMPRESSION: 1. Tubes as described with overall stable appearance of the chest. Dictated by: Dictated on workstation # [id number] Dict: 12/06/19 0738 Trans: 12/06/19 0928 [facility] [id number] Interpreted by: JIM GRECO MD Electronically signed by: JIM GRECO MD 12/06/19 0928 A/P: Assessment: ST elevation on EKG are consistent with early repolarization pattern in a young male. Negative serial troponin. Drug overdose - management per medical team Intubated/ventilated. Severe cardiomyopathy. Echocardiogram done 12/04/2019 shows an LVEF of 25-30% Likely nonischemic cardiomyopathy. Rhabdomyolysis, improving CK levels. Plan: Cardiomyopathy, likely NICM Start IV Enalapril and BB Fluid overload - received IV diuretics with good response Monitor lab Replace electrolytes as indicated Remains intubated Records per CANDACE Messina Dec 06, 2019 11:22
[2019-12-06] MEDS ORDERED: ENALAPRILAT 1.25 MG/1 ML (VASOTEC) 1 ML VIAL IV NR (11:30)
[2019-12-06] MEDS: meTOprolol 5 MG/5 ML (LOPRESSOR) VIAL IV SCH ×3 (11:47→23:48)
--- NOTE | 2019-12-06 12:50 | NUR ---
T.F RESIDUAL 60ML.
--- NOTE | 2019-12-06 15:43 | NUR ---
REPORT GIVEN TO BRIAN SHEPHERD WHO ASSUMES CARE OF PT FOR REMAINDER OF SHIFT.
--- NOTE | 2019-12-06 16:26 | Progress Note - Cardiology ---
Cardiology SOAP Progress Note Subjective: On [facility] vent, sedated, not able to communicate Objective: I&O/Vital Signs 12/06/19 12/06/19 12/06/19 12/06/19 04:36 05:00 05:49 06:00 Pulse 83 81 82 81 Resp 20 20 B/P (MAP) 161/118 163/120 (134) 164/118 (133) Pulse Ox 96 97 O2 Delivery Mechanical Ventilator Mechanical Ventilator O2 Flow Rate 40.00 40.00 12/06/19 12/06/19 12/06/19 12/06/19 06:05 06:47 07:00 07:00 Pulse 81 82 81 Resp 19 17 B/P (MAP) 165/118 (134) Pulse Ox 96 96 O2 Delivery Mechanical Ventilator Mechanical Ventilator O2 Flow Rate 35.00 35.00 FiO2 30 12/06/19 12/06/19 12/06/19 12/06/19 07:29 08:00 08:00 08:00 Temp 36.7 Pulse 81 82 Resp 20 20 B/P (MAP) 165/117 164/123 (137) Pulse Ox 95 96 O2 Delivery Mechanical Ventilator Mechanical Ventilator O2 Flow Rate 30.00 FiO2 30 12/06/19 12/06/19 12/06/19 12/06/19 08:02 08:54 09:00 09:29 Pulse 84 84 87 Resp 22 22 B/P (MAP) 159/114 158/110 (126) Pulse Ox 94 93 O2 Delivery Mechanical Ventilator O2 Flow Rate 30.00 30.00 FiO2 30 12/06/19 12/06/19 12/06/19 12/06/19 10:00 10:23 10:27 11:00 Pulse 93 97 93 Resp 20 30 22 B/P (MAP) 138/92 (107) 142/93 (109) Pulse Ox 91 90 91 O2 Delivery Mechanical Ventilator Mechanical Ventilator Mechanical Ventilator O2 Flow Rate 30.00 35.00 35.00 FiO2 30 12/06/19 12/06/19 12/06/19 12/06/19 11:36 12:00 12:00 12:35 Temp 36.9 Pulse 89 88 Resp 19 B/P (MAP) 162/112 (129) 162/113 Pulse Ox 94 95 O2 Delivery Mechanical Ventilator Mechanical Ventilator O2 Flow Rate 35.00 FiO2 35 12/06/19 12/06/19 12/06/19 12/06/19 12:35 12:58 13:00 14:00 Pulse 88 89 87 85 Resp 19 21 B/P (MAP) 162/113 163/112 (129) 166/121 (136) Pulse Ox 96 95 O2 Delivery Mechanical Ventilator Mechanical Ventilator O2 Flow Rate 35.00 35.00 12/06/19 12/06/19 12/06/19 12/06/19 14:58 15:00 15:07 16:00 Pulse 88 86 96 Resp 26 25 25 B/P (MAP) 156/104 (121) 153/103 (120) Pulse Ox 93 93 93 92 O2 Delivery Mechanical Ventilator Mechanical Ventilator Mechanical Ventilator O2 Flow Rate 35.00 35.00 FiO2 35 35 12/06/19 00:00 Intake Total 3167 ml Output Total 725 ml Balance 2442 ml Weight (Pounds): 220 Weight (Calculated Kilograms): 99.491414 Constitutional: appears stated age; No apparent distress; well-developed, well-nourished, other (intubated/ventilated.) Respiratory: chest is bilaterally symmetric, lungs clear to auscultation Cardiovascular: regular rate-rhythm, S1 and S2 Gastrointestional: soft, audible bowel sounds Extremities: no lower extremity edema bilateral Neurologic/Psychiatric: other (intubated/ventilated.) Skin: warm/dry; No rash, No ulcerations; other (abrasions to face) Results/Procedures: Labs Laboratory Tests 12/05/19 18:36: Sodium Level 142, Potassium Level 5.1H, Chloride Level 115H, Carbon Dioxide Level 17L, Anion Gap 10, Blood Urea Nitrogen 19H, Creatinine 0.79, Estimat Glomerular Filtration Rate > 60, BUN/Creatinine Ratio 24, Glucose Level 137H, Calcium Level 8.6 12/06/19 03:40: Sodium Level 145, Potassium Level 4.3, Chloride Level 114H, Carbon Dioxide Level 18L, Anion Gap 13, Blood Urea Nitrogen 17, Creatinine 0.92, Estimat Glomerular Filtration Rate > 60, BUN/Creatinine Ratio 18, Glucose Level 149H, Calcium Level 9.1, White Blood Count 11.8H, Red Blood Count 4.84, Hemoglobin 13.4, Hematocrit 40, Mean Corpuscular Volume 82, Mean Corpuscular Hemoglobin 28, Mean Corpuscular Hemoglobin Concent 34, Red Cell Distribution Width 14.0, Platelet Count 217, Mean Platelet Volume 10.6H, Neutrophils (%) (Auto) 91H, Lymphocytes (%) (Auto) 5L, Monocytes (%) (Auto) 4, Eosinophils (%) (Auto) 0, Basophils (%) (Auto) 0, Neutrophils # (Auto) 10.7H, Lymphocytes # (Auto) 0.6L, Monocytes # (Auto) 0.5, Eosinophils # (Auto) 0.0, Basophils # (Auto) 0.0, Phosphorus Level 2.8, Magnesium Level 2.0, Total Creatine Kinase 2142H 12/06/19 06:24: Blood Gas Puncture Site UNK, Blood Gas Patient Temperature 36.8, Arterial Blood pH 7.36L, Arterial Blood Partial Pressure CO2 41, Arterial Blood Partial Pressure O2 78L, Arterial Blood HCO3 23, Arterial Blood Total CO2 23.8, Arterial Blood Oxygen Saturation 94, Arterial Blood Base Excess -2.0, Nino Test POSITIVE, Blood Gas Ventilator Setting NO, Blood Gas Inspired Oxygen 40 Microbiology 12/04/19 MRSA Screen - Final, Complete MRSA not isolated 12/04/19 Urine Culture - Final, Complete NO GROWTH A/P: Assessment: ST elevation on EKG are consistent with early repolarization pattern in a young male. Negative serial troponin. Drug overdose - management per Medical and ICU team Intubated and mechanically ventilated Severe cardiomyopathy. Echocardiogram done 12/04/2019 shows an LVEF of 25-30% (likely nonischemic cardiomyopathy). Rhabdomyolysis, improving CK levels. Plan: I examined him and reviewed records of this hospitalization Cardiomyopathy, likely NICM. Start IV enalapril and BB Fluid overload - received IV diuretics with good response Monitor lab Replace electrolytes as indicated MARY BROWNLEE MD FACP FAC CCDS Dec 06, 2019 16:26
[2019-12-06] MEDS: HALOPERIDOL 5 MG/ML (HALDOL) VIAL IV PRN (19:57)
[2019-12-06] MEDS: morphine INJ 4 MG/ML 1 ML (VIAL/SYRINGE) IVP PRN (19:57)
[2019-12-06] MEDS: ENALAPRILAT 1.25 MG/1 ML (VASOTEC) 1 ML VIAL IV SCH (20:05)
[2019-12-06] MEDS: ENOXAPARIN 40 MG/0.4 ML (LOVENOX) SYR SC SCH (20:06)
--- NOTE | 2019-12-06 20:31 | NUR ---
320MLS OF RESIDUAL PULLED BACK AT THIS TIME. TUBE FEEDINGS STOPPED AT THIS TIME.
[2019-12-07] VITALS (30 sets, daily range): BP systolic 97–148; BP diastolic 55–98
[2019-12-07] MEDS: RT-ALBUTEROL SULF 2.5 MG/3 ML PRE-MIX VIAL INH SCH ×4 (02:22→20:38)
[2019-12-07] MEDS: DexMEDEtomidine 250 ML DRIP 250 ML IV SCH ×4 (02:28→23:55)
[2019-12-07 03:31] LABS: ABG BASE EXCESS 6.3 MMOL/L (-2.5-2.5); ABG OXYGEN SATURATION 94 % (94-100); ABG PCO2 47 MMHG (35-45); ABG PH 7.43 (7.37-7.43); ABG PO2 80 MMHG (79-93)
[2019-12-07 03:32] LABS: ALLENS TEST POSITIVE; INSPIRED O2 40; PATIENT TEMP 37.1; VENTILATOR YES
[2019-12-07 03:34] LABS: BASOPHILS % (AUTO) 0 % (0-10); EOSINOPHILS % (AUTO) 0 % (0-10); HEMATOCRIT 35 % (40-54); HEMOGLOBIN 11.7 G/DL (13.3-17.7); LYMPHOCYTES # (AUTO) 1.8 X 10^3 (1.0-4.0); LYMPHOCYTES % (AUTO) 12 % (12-44); MEAN CORPUSCULAR HEMOGLOBIN 28 PG (25-34); MEAN CORPUSCULAR HGB CONC 33 G/DL (32-36); MEAN CORPUSCULAR VOLUME 84 FL (80-99); MEAN PLATELET VOLUME 10.7 FL (7.4-10.4); MONOCYTES # (AUTO) 0.8 X 10^3 (0.0-1.0); MONOCYTES % (AUTO) 6 % (0-12); NEUTROPHILS # (AUTO) 11.9 X 10^3 (1.8-7.8); NEUTROPHILS % (AUTO) 82 % (42-75); PLATELET COUNT 182 10^3/uL (130-400); RED CELL DISTRIBUTION WIDTH 13.8 % (10.0-14.5); WHITE BLOOD COUNT 14.5 10^3/uL (4.3-11.0)
[2019-12-07 03:46] LABS: CHLORIDE 112 MMOL/L (98-107); POTASSIUM 3.8 MMOL/L (3.6-5.0); SODIUM 147 MMOL/L (135-145)
[2019-12-07 03:47] LABS: CALCIUM 8.5 MG/DL (8.5-10.1)
[2019-12-07 03:48] LABS: GLUCOSE 118 MG/DL (70-105)
[2019-12-07 03:49] LABS: CARBON DIOXIDE 25 MMOL/L (21-32)
[2019-12-07 03:52] LABS: CREATININE SERUM 0.79 MG/DL (0.60-1.30); GFR ESTIMATED > 60
[2019-12-07 03:53] LABS: BUN/CREATININE RATIO 14
[2019-12-07 04:19] LABS: TRIGLYCERIDES 412 MG/DL (<150)
--- NOTE | 2019-12-07 04:34 | Pulmonary Progress Note ---
HAYDEE LYONS,MED STUDENT 12/07/19 0434: Subjective Date Seen by a Provider: Dec 07, 2019 Time Seen by a Provider: 04:00 Subjective/Events-last exam Patient sedated and on vent. Sepsis Event Evaluation Height, Weight, BMI Height: 5'5" Weight: 220lbs. oz. 99.227093tp; 30.00 BMI Method:Stated Exam Exam Vital Signs Date Time Temp Pulse Resp B/P (MAP) Pulse Ox O2 Delivery O2 Flow Rate FiO2 12/07/19 03:00 96 17 140/95 (110) 96 Mechanical Ventilator 40.00 12/07/19 02:41 96 144/95 12/07/19 02:28 90 139/92 12/07/19 02:23 90 16 96 40 12/07/19 02:00 90 16 141/94 (110) 95 Mechanical Ventilator 40.00 12/07/19 01:00 92 16 144/94 (111) 95 Mechanical Ventilator 40.00 12/07/19 01:00 92 12/07/19 00:00 92 16 148/98 (115) 95 Mechanical Ventilator 40.00 12/07/19 00:00 95 Mechanical Ventilator 40 12/06/19 23:58 37.3 12/06/19 23:47 96 148/97 12/06/19 23:46 96 17 148/97 12/06/19 23:00 98 17 151/103 (119) 95 Mechanical Ventilator 40.00 12/06/19 22:29 102 20 93 40 12/06/19 22:00 102 17 145/96 (112) 91 Mechanical Ventilator 40.00 12/06/19 21:00 107 18 146/91 (109) 89 Mechanical Ventilator 40.00 12/06/19 20:56 107 24 90 Mechanical Ventilator 40.00 12/06/19 20:52 108 156/101 12/06/19 20:00 89 Mechanical Ventilator 35 12/06/19 20:00 118 32 156/102 (120) 91 Mechanical Ventilator 35.00 12/06/19 19:36 36.9 12/06/19 19:29 110 152/103 12/06/19 19:04 90 19 94 35 12/06/19 19:00 90 12/06/19 19:00 90 15 153/106 (122) 93 Mechanical Ventilator 35.00 12/06/19 18:00 90 21 152/105 (121) 94 Mechanical Ventilator 35.00 12/06/19 17:10 96 148/101 12/06/19 17:00 97 23 148/101 (117) 92 Mechanical Ventilator 35.00 12/06/19 16:00 96 25 153/103 (120) 92 Mechanical Ventilator 35.00 12/06/19 16:00 36.9 12/06/19 15:07 93 Mechanical Ventilator 35 12/06/19 15:00 86 25 156/104 (121) 93 Mechanical Ventilator 35.00 12/06/19 14:58 88 26 93 35 12/06/19 14:00 85 21 166/121 (136) 95 Mechanical Ventilator 35.00 12/06/19 13:00 87 19 163/112 (129) 96 Mechanical Ventilator 35.00 12/06/19 12:58 89 12/06/19 12:35 88 162/113 12/06/19 12:35 88 162/113 12/06/19 12:00 89 19 162/112 (129) 95 Mechanical Ventilator 35.00 12/06/19 12:00 36.9 12/06/19 11:36 94 Mechanical Ventilator 35 12/06/19 11:00 93 22 142/93 (109) 91 Mechanical Ventilator 35.00 12/06/19 10:27 Mechanical Ventilator 35.00 12/06/19 10:23 97 30 90 30 12/06/19 10:00 93 20 138/92 (107) 91 Mechanical Ventilator 30.00 12/06/19 09:29 87 22 93 30 12/06/19 09:00 84 22 158/110 (126) 94 Mechanical Ventilator 30.00 12/06/19 08:54 84 159/114 12/06/19 08:02 30.00 12/06/19 08:00 96 Mechanical Ventilator 30 12/06/19 08:00 82 20 164/123 (137) 95 Mechanical Ventilator 30.00 12/06/19 08:00 36.7 12/06/19 07:29 81 20 165/117 12/06/19 07:00 81 17 165/118 (134) 96 Mechanical Ventilator 35.00 12/06/19 07:00 82 12/06/19 06:47 81 19 96 30 12/06/19 06:05 Mechanical Ventilator 35.00 12/06/19 06:00 81 20 164/118 (133) 97 Mechanical Ventilator 40.00 12/06/19 05:49 82 12/06/19 05:00 81 20 163/120 (134) 96 Mechanical Ventilator 40.00 12/06/19 04:36 83 161/118 I & O 12/07/19 07:00 Intake Total 4002.5 ml Output Total 6270 ml Balance -2267.5 ml Height & Weight Height: 5'5" Weight: 220lbs. oz. 99.759919lt; 30.00 BMI Method:Stated General Appearance: No Apparent Distress, WD/WN, Other (Intubated and sedated) HEENT: Moist Mucous Membranes, Other (ETT in place, some edema around left eye) Neck: Normal Inspection; No JVD, No Thyromegaly Respiratory: Lungs Clear, Normal Breath Sounds, No Respiratory Distress, Other (Intubated and mechanically ventilated) Cardiovascular: Regular Rate, Rhythm, No Murmur Capillary Refill: Less Than 3 Seconds Peripheral Pulses: 2+ Radial Pulses (R), 2+ Radial Pulses (L) Extremity: Normal Inspection, Pedal Edema Neurologic/Psychiatric: Other (sedated) Skin: Normal Color, Warm/Dry Results Lab Laboratory Tests 12/05/19 18:36 12/06/19 03:40 12/07/19 03:05 Assessment/Plan Assessment/Plan Acute respiratory failure -Pt continues to require 40% O2, with SpO2 93-95% -Pt is now requiring 40% oxygen, 12/04 was on 21% Agitation/psychosis -Pt receiving Risperdol and Haldol Rhabdomyolysis -Continue IVF -Continue to monitor CK [place] -Monitor -Improving, creatinine now 0.79 Leukocytosis - secondary to steroids PCP intoxication -Education RONI PATEL DO 12/07/19 0526: Subjective Time Seen by a Provider: 05:21 Exam Exam General Appearance: No Apparent Distress, WD/WN HEENT: Moist Mucous Membranes Neck: Normal Inspection Respiratory: Lungs Clear, Normal Breath Sounds, No Respiratory Distress Cardiovascular: Regular Rate, Rhythm, No Murmur Extremity: Pedal Edema Skin: Normal Color, Warm/Dry Assessment/Plan Assessment/Plan Acute respiratory failure -Await repeat CK if still improving will give lasix and followed by extubating pt. If CK is higher pt will need more IVF and will leave pt on vent until we are able to decrease IVF. -I expect pt will need sedation for psychosis/agitation upon extubation. Will try to improve pt's hypoxia prior to extubation. I don't believe pt will tolerate BiPAP after extubation. Agitation/psychosis -Pt receiving Risperdol and Haldol Rhabdomyolysis -Continue IVF -Continue to monitor CK [place] -Monitor -Improving, creatinine now 0.79 Leukocytosis - secondary to steroids PCP intoxication -Education HAYDEE LYONS,MED STUDENT Dec 07, 2019 04:34 RONI PATEL DO Dec 07, 2019 05:26
[2019-12-07] MEDS: KCL 20 MEQ TAB (K-DUR) PO SCH (05:00)
[2019-12-07] MEDS: MAGNESIUM 1 GM/100 ML IVPB 100 ML IV SCH (05:00)
[2019-12-07] MEDS: POTASSIUM CL 10MEQ/50ML IVPB 50 ML IV SCH ×7 (05:01→11:05)
[2019-12-07] MEDS: meTOprolol 5 MG/5 ML (LOPRESSOR) VIAL IV SCH ×3 (05:36→18:15)
[2019-12-07 05:41] LABS: CHLORIDE 112 MMOL/L (98-107); POTASSIUM 3.8 MMOL/L (3.6-5.0); SODIUM 149 MMOL/L (135-145)
[2019-12-07 05:42] LABS: CALCIUM 8.6 MG/DL (8.5-10.1)
[2019-12-07 05:43] LABS: GLUCOSE 119 MG/DL (70-105)
[2019-12-07 05:44] LABS: TOTAL PROTEIN 5.8 GM/DL (6.4-8.2)
[2019-12-07 05:45] LABS: BILIRUBIN,TOTAL 0.2 MG/DL (0.1-1.0); CARBON DIOXIDE 25 MMOL/L (21-32)
[2019-12-07 05:47] LABS: ALKALINE PHOSPHATASE 67 U/L (40-136); CREATININE SERUM 0.82 MG/DL (0.60-1.30); GFR ESTIMATED > 60
[2019-12-07 05:48] LABS: BUN/CREATININE RATIO 13
[2019-12-07 05:50] LABS: ALANINE AMINOTRANSFERASE 110 U/L (0-55); CREATINE KINASE 913 U/L (30-200)
[2019-12-07] MEDS ORDERED: FUROSEMIDE 40 MG/4 ML INJ (LASIX) IVP ONE (06:00)
--- NOTE | 2019-12-07 07:09 | Diagnostic Imaging Report ---
INDICATION: Overdose. Kidney failure. COMPARISON: 12/06/2019. FINDINGS: ET tube and NG tube remain in good position. There continues to be increased density in the left lung base with no developing density in the right lung base now. Upper lungs remain clear. Could not exclude small pleural effusions. IMPRESSION: 1. Tubes remain in good position. 2. Increasing density lung bases and blunting of the costophrenic angles likely representing some atelectasis as well as pleural effusion. Dictated by: Dictated on workstation # [id number]
--- NOTE | 2019-12-07 08:32 | Progress Note - Cardiology ---
Cardiology SOAP Progress Note Subjective: Intubated and sedated Objective: I&O/Vital Signs 12/07/19 12/07/19 12/07/19 12/07/19 21:00 21:34 22:00 22:10 Temp 37.3 Pulse 93 90 89 Resp 15 15 B/P (MAP) 132/83 (99) 136/87 127/89 (102) Pulse Ox 94 93 O2 Delivery Mechanical Ventilator Mechanical Ventilator O2 Flow Rate 30.00 30.00 12/07/19 12/07/19 12/07/19 12/08/19 22:35 23:00 23:55 00:00 Temp 37.4 Pulse 89 88 89 Resp 12 B/P (MAP) 128/87 (101) Pulse Ox 94 O2 Delivery Mechanical Ventilator O2 Flow Rate 30.00 12/08/19 12/08/19 12/08/19 12/08/19 00:00 00:00 01:00 01:00 Pulse 87 87 87 Resp 12 16 B/P (MAP) 136/83 (100) 133/87 (102) Pulse Ox 92 95 94 O2 Delivery Mechanical Ventilator Mechanical Ventilator Mechanical Ventilator O2 Flow Rate 30.00 30.00 FiO2 30 12/08/19 12/08/19 12/08/19 12/08/19 01:29 02:00 02:18 03:00 Pulse 87 87 86 90 Resp 15 16 15 B/P (MAP) 132/87 (102) 131/82 (98) Pulse Ox 93 96 94 O2 Delivery Mechanical Ventilator Mechanical Ventilator O2 Flow Rate 30.00 30.00 FiO2 30 12/08/19 12/08/19 12/08/19 12/08/19 03:01 04:00 04:00 04:22 Temp 38.1 Pulse 89 89 Resp 16 B/P (MAP) 123/85 (98) Pulse Ox 92 92 O2 Delivery Mechanical Ventilator Mechanical Ventilator O2 Flow Rate 30.00 FiO2 30 12/08/19 12/08/19 12/08/19 12/08/19 04:23 05:00 05:22 05:33 Temp 37.6 37.6 Pulse 88 88 Resp 12 B/P (MAP) 125/84 (98) Pulse Ox 94 O2 Delivery Mechanical Ventilator O2 Flow Rate 30.00 12/08/19 12/08/19 12/08/19 12/08/19 05:49 06:00 06:41 07:00 Pulse 89 95 95 98 Resp 16 15 16 B/P (MAP) 125/83 (97) 136/89 (105) Pulse Ox 92 92 90 O2 Delivery Mechanical Ventilator Mechanical Ventilator O2 Flow Rate 30.00 30.00 FiO2 30 12/08/19 12/08/19 12/08/19 07:33 08:00 08:01 Temp 37.7 Pulse 106 Resp 38 B/P (MAP) 164/116 (132) Pulse Ox 92 98 O2 Delivery Mechanical Ventilator Mechanical Ventilator O2 Flow Rate 30.00 FiO2 30 12/08/19 00:00 Intake Total 220 ml Output Total 1985 ml Balance -1765 ml Weight (Pounds): 220 Weight (Calculated Kilograms): 99.344743 Constitutional: appears stated age; No apparent distress; well-developed, well- nourished, other (intubated/ventilated.) Respiratory: chest is bilaterally symmetric, lungs clear to auscultation Cardiovascular: regular rate-rhythm, S1 and S2 Gastrointestional: soft, audible bowel sounds Extremities: no lower extremity edema bilateral Neurologic/Psychiatric: other (intubated/ventilated.) Skin: warm/dry; No rash, No ulcerations; other (abrasions to face) Results/Procedures: Labs Laboratory Tests 12/08/19 02:32: White Blood Count 13.8H, Red Blood Count 4.28L, Hemoglobin 12.0L, Hematocrit 37L , Mean Corpuscular Volume 86, Mean Corpuscular Hemoglobin 28, Mean Corpuscular Hemoglobin Concent 33, Red Cell Distribution Width 14.6H, Platelet Count 180, Mean Platelet Volume 11.0H, Neutrophils (%) (Auto) 75, Lymphocytes (%) (Auto) 14, Monocytes (%) (Auto) 9, Eosinophils (%) (Auto) 2, Basophils (%) (Auto) 0, Neutrophils # (Auto) 10.4H, Lymphocytes # (Auto) 2.0, Monocytes # (Auto) 1.2H, Eosinophils # (Auto) 0.3, Basophils # (Auto) 0.0, Sodium Level 145, Potassium Level 4.3, Chloride Level 108H, Carbon Dioxide Level 23, Anion Gap 14, Blood Urea Nitrogen 9, Creatinine 1.06, Estimat Glomerular Filtration Rate > 60, BUN/Creatinine Ratio 8, Glucose Level 100, Calcium Level 9.1, Phosphorus Level 3.1, Magnesium Level 2.1, B-Type Natriuretic Peptide 18.6, Procalcitonin 0.24H 12/08/19 02:55: Blood Gas Puncture Site RR, Blood Gas Patient Temperature 38.1, Arterial Blood pH 7.43, Arterial Blood Partial Pressure CO2 45, Arterial Blood Partial Pressure O2 68L, Arterial Blood HCO3 29H, Arterial Blood Total CO2 42.9H, Arterial Blood Oxygen Saturation 92L, Arterial Blood Base Excess 5.0H, Nino Test YES-POS, Blood Gas Ventilator Setting YES, Blood Gas Inspired Oxygen 30% 12/08/19 05:35: Urine Color YELLOW, Urine Clarity CLEAR, Urine pH 8.5, Urine Specific [place] 1.010L, Urine Protein NEGATIVE, Urine Glucose (UA) NEGATIVE, Urine Ketones NEGATIVE, Urine Nitrite NEGATIVE, Urine Bilirubin NEGATIVE, Urine Urobilinogen 0.2, Urine Leukocyte Esterase NEGATIVE, Urine RBC (Auto) NEGATIVE, Urine RBC RARE, Urine WBC RARE, Urine Squamous Epithelial Cells NONE, Urine Crystals NONE, Urine Bacteria NEGATIVE, Urine Casts NONE, Urine Mucus NEGATIVE, Urine Culture Indicated NO Microbiology 12/04/19 MRSA Screen - Final, Complete MRSA not isolated 12/04/19 Urine Culture - Final, Complete NO GROWTH Procedures NAME: SHOAIB PHELPS [facility] REC#: [id number] PT STATUS: ADM IN : 1985 PHYSICIAN: LEIDY ROMO MD ADMIT DATE: 12/04/19/ICU Draft Date of Exam:12/07/19 CHEST 1 VIEW, AP/PA ONLY INDICATION: Overdose. Kidney failure. COMPARISON: 12/06/2019. FINDINGS: ET tube and NG tube remain in good position. There continues to be increased density in the left lung base with no developing density in the right lung base now. Upper lungs remain clear. Could not exclude small pleural effusions. IMPRESSION: 1. Tubes remain in good position. 2. Increasing density lung bases and blunting of the costophrenic angles likely representing some atelectasis as well as pleural effusion. Dictated on workstation # [id number] Dict: 12/07/19 0706 Trans: 12/07/19 0709 [id number] [id number] Interpreted by: JONO LOMAX MD Electronically signed by: A/P: Assessment: ST elevation on EKG are consistent with early repolarization pattern in a young male. Negative serial troponin. Drug overdose - management per Medical and ICU team Intubated and mechanically ventilated Severe cardiomyopathy. Echocardiogram done 12/04/2019 shows an LVEF of 25-30% (likely nonischemic cardiomyopathy). Rhabdomyolysis, improving CK levels. Plan: Continue current regimen Cardiomyopathy, likely NICM. Continue IV enalapril and BB, titrate doses up as tolerated, switch to p.o. when extubated Continue IV diuretics Monitor lab Replace electrolytes as indicated Possible extubation today or tomorrow - management per pulmonary services CANDACE GUDINO Dec 07, 2019 08:32
[2019-12-07] MEDS: PANTOPRAZOLE 40 MG (PROTONIX) VIAL IV SCH (09:14)
[2019-12-07] MEDS: risperiDONE 2 MG (RisperDAL) TAB PO SCH ×2 (09:14→21:38)
[2019-12-07] MEDS: ENALAPRILAT 1.25 MG/1 ML (VASOTEC) 1 ML VIAL IV SCH ×2 (09:14→21:38)
--- NOTE | 2019-12-07 11:11 | NUR ---
PT BEGINNING TO AWAKEN, NO CHANGE IN MEDS. MOVING HEAD AND RR IS INCREASED. PT GIVEN ATIVAN PER ORDER AND VERSED GTT INCREASED TO 5 MG/HR. WILL MONITOR.
[2019-12-07] MEDS: MIDAZOLAM DRIP 50 MG/NS 90 ML IV SCH ×4 (11:20→21:34)
[2019-12-07] MEDS: LACTATED RINGERS 1,000 ML IV SCH (11:21)
--- NOTE | 2019-12-07 13:04 | NUR ---
DUE TO CHANGES IN STAFFING CARE OF PT TO THIS RN, REPORT RECEIVED FROM Katy LIVINGSTON RN
--- NOTE | 2019-12-07 13:14 | Progress Note - Hospitalist ---
Subjective HPI/CC On Admission Date Seen by Provider: Dec 07, 2019 Time Seen by Provider: 10:10 Pt is a 34yoCM who presented to the ER due to acute psychosis. He is currently intubated and sedated and unable to provide any history. All history obtained from the records. Apparently police were called due to pt acting erratically. He has been smoking 'wet' (cigarettes dipped in formaldehyde) for the past two days and became increasingly erratic and aggressive so his friends called the police. He was outside of the house beating his head on the sidewalk and yelling and screaming. He was given 2mg of Ativan by EMS which helped to calm the patient for a short period of time. Unfortunately this was short lived and he became more agitated in the ER. He at first calmed with verbal direction but this was not effective skilled nursing. requiring 500mg of Ketamine, 2mg Ativan x2, and 20mg of Geodon. Poison Control was contacted and believed this to be more consistent with synthetic marijuana intoxication. They recommended admission and checking CK. Unfortunately he did require intubation for airway protection. Subjective/Events-last exam He remains intubated and sedated. Objective Exam Vital Signs Vital Signs Date Time Temp Pulse Resp B/P (MAP) Pulse Ox O2 Delivery O2 Flow Rate FiO2 12/07/19 12:36 94 Mechanical Ventilator 35 12/07/19 12:00 92 15 105/65 (78) 40.00 12/07/19 07:37 37.2 Capillary Refill : Less Than 3 SecondsLess Than 3 Seconds General Appearance: No Apparent Distress, WD/WN Respiratory: Lungs Clear, Normal Breath Sounds, No Respiratory Distress Cardiovascular: Regular Rate, Rhythm, No Murmur Gastrointestinal: Normal Bowel Sounds, Non Tender, Soft Extremity: Normal Inspection, Non Tender, Pedal Edema Neurologic/Psychiatric: Alert, Oriented x3, No Motor/Sensory Deficits, Normal Mood/Affect Skin: Normal Color, Warm/Dry Results/Procedures Lab Laboratory Tests 12/07/19 03:05 Patient resulted labs reviewed. Imaging: Reviewed Imaging Report Assessment/Plan Assessment and Plan Assess & Plan/Chief Complaint Acute Respiratory Failure Acute Psychosis Polysubstance abuse Continue on vent Pulmonology following, appreciate assistance Continue Risperdal Rhabdomyolysis Low rate fluids Continue Lasix DVT prophylaxis: Lovenox Hypokalemia, resolved [place], resolved Diagnosis/Problems Diagnosis/Problems (1) Respiratory failure Status: Acute Qualifiers: Chronicity: acute Respiratory failure complication: hypoxia and hypercapnia Qualified Codes: J96.01 - Acute respiratory failure with hypoxia; J96.02 - Acute respiratory failure with hypercapnia (2) Acute psychosis Status: Acute (3) Illicit drug use Status: Acute (4) Rhabdomyolysis Status: Acute Qualifiers: Rhabdomyolysis type: non-traumatic Qualified Codes: M62.82 - Rhabdomyolysis (5) [place] (acute kidney injury) Status: Resolved Resolution Date/Time: 12/07/19 @ 13:14 Clinical Quality Measures DVT/VTE Risk/Contraindication: Risk Factor Score Per Nursin RFS Level Per Nursing on Admit: 4+=Very High HERMILA DUMONT MD Dec 07, 2019 13:14
--- NOTE | 2019-12-07 13:51 | NUR ---
CM/SS following patient for discharge planning; CM/SS unable to visit with patient due to him being intubated/sedated. CM/SS will continue to follow.
--- NOTE | 2019-12-07 16:29 | Progress Note - Cardiology ---
Cardiology SOAP Progress Note Subjective: Unable to communicate Objective: I&O/Vital Signs 12/07/19 12/07/19 12/07/19 12/07/19 05:00 05:36 06:00 06:37 Pulse 91 91 89 88 Resp 15 15 B/P (MAP) 139/94 (109) 139/97 139/93 (108) Pulse Ox 95 97 O2 Delivery Mechanical Ventilator Mechanical Ventilator O2 Flow Rate 40.00 40.00 12/07/19 12/07/19 12/07/19 12/07/19 06:57 07:00 07:18 07:20 Temp 37.1 Pulse 88 89 Resp 20 26 B/P (MAP) 115/76 (89) Pulse Ox 94 93 92 O2 Delivery Mechanical Ventilator Mechanical Ventilator O2 Flow Rate 30.00 FiO2 30 30 12/07/19 12/07/19 12/07/19 12/07/19 07:37 08:00 08:31 08:31 Temp 37.2 Pulse 87 87 87 Resp 15 B/P (MAP) 99/67 (78) 104/65 104/65 Pulse Ox 93 O2 Delivery Mechanical Ventilator O2 Flow Rate 30.00 12/07/19 12/07/19 12/07/19 12/07/19 09:00 10:00 10:24 11:00 Pulse 86 86 89 94 Resp 16 15 19 18 B/P (MAP) 102/67 (79) 97/56 (70) 108/69 (82) Pulse Ox 94 93 93 91 O2 Delivery Mechanical Ventilator Mechanical Ventilator Mechanical Ventilator O2 Flow Rate 30.00 30.00 40.00 FiO2 30 12/07/19 12/07/19 12/07/19 12/07/19 11:05 11:20 12:00 12:36 Pulse 94 95 92 Resp 17 15 B/P (MAP) 108/69 115/74 105/65 (78) Pulse Ox 94 94 O2 Delivery Mechanical Ventilator Mechanical Ventilator O2 Flow Rate 40.00 FiO2 35 12/07/19 12/07/19 12/07/19 12/07/19 13:00 13:00 14:00 14:00 Pulse 90 90 90 90 Resp 15 16 B/P (MAP) 110/78 (89) 110/78 118/77 (91) Pulse Ox 91 91 O2 Delivery Mechanical Ventilator Mechanical Ventilator O2 Flow Rate 35.00 35.00 12/07/19 12/07/1920 15:00 15:21 15:52 Pulse 101 94 94 Resp 15 16 B/P (MAP) 129/85 (100) 121/85 Pulse Ox 91 92 O2 Delivery Mechanical Ventilator O2 Flow Rate 35.00 FiO2 35 12/07/19 00:00 Intake Total 3402.5 ml Output Total 5045 ml Balance -1642.5 ml Weight (Pounds): 220 Weight (Calculated Kilograms): 99.952613 Constitutional: appears stated age; No apparent distress; well-developed, well- nourished, other (intubated/ventilated.) Respiratory: chest is bilaterally symmetric, lungs clear to auscultation Cardiovascular: regular rate-rhythm, S1 and S2 Gastrointestional: soft, audible bowel sounds Extremities: no lower extremity edema bilateral Neurologic/Psychiatric: other (intubated/ventilated.) Skin: warm/dry; No rash, No ulcerations; other (abrasions to face) Results/Procedures: Labs Laboratory Tests 12/07/19 03:05: White Blood Count 14.5H, Red Blood Count 4.18L, Hemoglobin 11.7L, Hematocrit 35L , Mean Corpuscular Volume 84, Mean Corpuscular Hemoglobin 28, Mean Corpuscular Hemoglobin Concent 33, Red Cell Distribution Width 13.8, Platelet Count 182, Mean Platelet Volume 10.7H, Neutrophils (%) (Auto) 82H, Lymphocytes (%) (Auto) 12, Monocytes (%) (Auto) 6, Eosinophils (%) (Auto) 0, Basophils (%) (Auto) 0, Neutrophils # (Auto) 11.9H, Lymphocytes # (Auto) 1.8, Monocytes # (Auto) 0.8, Eo sinophils # (Auto) 0.0, Basophils # (Auto) 0.0, Sodium Level 149H, Potassium Le sweetie 3.8, Chloride Level 112H, Carbon Dioxide Level 25, Anion Gap 12, Blood Urea Nitrogen 11, Creatinine 0.82, Estimat Glomerular Filtration Rate > 60, BUN/Creatinine Ratio 13, Glucose Level 119H, Calcium Level 8.6, Corrected Calcium 9.4, Phosphorus Level 3.0, Magnesium Level 2.0, Total Bilirubin 0.2, Aspartate Amino Transf (AST/SGOT) 53H, Alanine Aminotransferase (ALT/SGPT) 110H, Alkaline Phosphatase 67, Total Creatine Kinase 913H, Total Protein 5.8L, Albumin 3.0L, Triglycerides Level 412#H 12/07/19 03:23: Blood Gas Puncture Site RIGHT RADIAL, Blood Gas Patient Temperature 37.1, Arterial Blood pH 7.43, Arterial Blood Partial Pressure CO2 47H, Arterial Blood Partial Pressure O2 80, Arterial Blood HCO3 31H, Arterial Blood Total CO2 32.0H, Arterial Blood Oxygen Saturation 94, Arterial Blood Base Excess 6.3H, Nino Test POSITIVE, Blood Gas Ventilator Setting YES, Blood Gas Inspired Oxygen 40 Microbiology 12/04/19 MRSA Screen - Final, Complete MRSA not isolated 12/04/19 Urine Culture - Final, Complete NO GROWTH Laboratory Tests 12/05/19 18:36 12/06/19 03:40 12/07/19 03:05 A/P: Assessment: ST elevation on EKG are consistent with early repolarization pattern in a young male. Negative serial troponin. Drug overdose - management per Medical and ICU team Intubated and mechanically ventilated Severe cardiomyopathy. Echocardiogram done 12/04/2019 shows an LVEF of 25-30% (likely nonischemic cardiomyopathy). Rhabdomyolysis, improving CK levels. Plan: Continue current regimen Continue IV enalapril and BB, titrate doses up as tolerated, switch to p.o. when extubated Continue IV diuretics Monitor lab Replace electrolytes as indicated MARY BROWNLEE MD FACP [facility] CCDS Dec 07, 2019 16:29
--- NOTE | 2019-12-07 18:43 | NUR ---
PT'S TEMP NOTED AT 38.2, THIS RN SPOKE TO TELE ICU DR AND AWAITING FOR NEW ORDERS TO BE ENTERED.
[2019-12-07] MEDS ORDERED: PIPERACILLIN/TAZOBACTAM (BULK) 4.5 GM in NS (IVPB) 100 ML IV ONE (19:00)
[2019-12-07] MEDS ORDERED: ACETAMINOPHEN 325 MG TABLET PO ONE (19:00)
[2019-12-07] MEDS: ENOXAPARIN 40 MG/0.4 ML (LOVENOX) SYR SC SCH (21:38)
[2019-12-08] VITALS (26 sets, daily range): BP systolic 123–164; BP diastolic 77–116
[2019-12-08] MEDS: PIPERACILLIN/TAZO 4.5 GM/NS 100 ML IV SCH ×6 (00:25→16:41)
[2019-12-08] MEDS: meTOprolol 5 MG/5 ML (LOPRESSOR) VIAL IV SCH ×2 (00:25→06:07)
[2019-12-08] MEDS: RT-ALBUTEROL SULF 2.5 MG/3 ML PRE-MIX VIAL INH SCH ×2 (02:18→05:48)
[2019-12-08] MEDS: ACETAMINOPHEN 325 MG TABLET PO PRN ×3 (03:17→20:08)
[2019-12-08 03:18] LABS: ABG PCO2 45 MMHG (35-45); ABG PH 7.43 (7.37-7.43)
[2019-12-08 03:19] LABS: ABG OXYGEN SATURATION 92 % (94-100); ABG PO2 68 MMHG (79-93); ABG TCO2 42.9 MMOL/L (21.0-31.0); ALLENS TEST YES-POS; INSPIRED O2 30%; VENTILATOR YES
[2019-12-08 03:20] LABS: PATIENT TEMP 38.1
[2019-12-08 03:36] LABS: BASOPHILS % (AUTO) 0 % (0-10); EOSINOPHILS # (AUTO) 0.3 10^3/uL (0.0-0.3); EOSINOPHILS % (AUTO) 2 % (0-10); HEMATOCRIT 37 % (40-54); LYMPHOCYTES % (AUTO) 14 % (12-44); MEAN CORPUSCULAR HEMOGLOBIN 28 PG (25-34); MEAN CORPUSCULAR HGB CONC 33 G/DL (32-36); MEAN CORPUSCULAR VOLUME 86 FL (80-99); MONOCYTES # (AUTO) 1.2 X 10^3 (0.0-1.0); MONOCYTES % (AUTO) 9 % (0-12); NEUTROPHILS # (AUTO) 10.4 X 10^3 (1.8-7.8); NEUTROPHILS % (AUTO) 75 % (42-75); PLATELET COUNT 180 10^3/uL (130-400); RED CELL DISTRIBUTION WIDTH 14.6 % (10.0-14.5); WHITE BLOOD COUNT 13.8 10^3/uL (4.3-11.0)
[2019-12-08 03:57] LABS: BUN/CREATININE RATIO 8; CALCIUM 9.1 MG/DL (8.5-10.1); CARBON DIOXIDE 23 MMOL/L (21-32); CHLORIDE 108 MMOL/L (98-107); CREATININE SERUM 1.06 MG/DL (0.60-1.30); GFR ESTIMATED > 60; GLUCOSE 100 MG/DL (70-105); POTASSIUM 4.3 MMOL/L (3.6-5.0); SODIUM 145 MMOL/L (135-145)
[2019-12-08 03:58] LABS: MAGNESIUM 2.1 MG/DL (1.6-2.4); PHOSPHORUS 3.1 MG/DL (2.3-4.7)
--- NOTE | 2019-12-08 04:17 | Pulmonary Progress Note ---
HAYDEE LYONS,MED STUDENT 12/08/19 0417: Subjective Date Seen by a Provider: Dec 08, 2019 Time Seen by a Provider: 04:00 Subjective/Events-last exam Patient sedated and on vent. Sepsis Event Evaluation Height, Weight, BMI Height: 5'5" Weight: 220lbs. oz. 99.481276aa; 30.00 BMI Method:Stated Exam Exam Vital Signs Date Time Temp Pulse Resp B/P (MAP) Pulse Ox O2 Delivery O2 Flow Rate FiO2 12/08/19 03:01 38.1 12/08/19 03:00 90 15 131/82 (98) 94 Mechanical Ventilator 30.00 12/08/19 02:18 86 16 96 30 12/08/19 02:00 87 15 132/87 (102) 93 Mechanical Ventilator 30.00 12/08/19 01:29 87 12/08/19 01:00 87 12/08/19 01:00 87 16 133/87 (102) 94 Mechanical Ventilator 30.00 12/08/19 00:00 87 12 136/83 (100) 95 Mechanical Ventilator 30.00 12/08/19 00:00 92 Mechanical Ventilator 30 12/08/19 00:00 37.4 12/07/19 23:55 89 12/07/19 23:00 88 12 128/87 (101) 94 Mechanical Ventilator 30.00 12/07/19 22:35 89 12/07/19 22:10 37.3 12/07/19 22:00 89 15 127/89 (102) 93 Mechanical Ventilator 30.00 12/07/19 21:34 90 136/87 12/07/19 21:00 93 15 132/83 (99) 94 Mechanical Ventilator 30.00 12/07/19 20:38 86 16 95 30 12/07/19 20:37 Mechanical Ventilator 30.00 12/07/19 20:00 92 Mechanical Ventilator 30 12/07/19 20:00 87 16 136/92 (107) 97 Mechanical Ventilator 35.00 12/07/19 19:47 37.6 12/07/19 19:38 87 137/91 12/07/19 19:00 88 15 141/91 (108) 97 Mechanical Ventilator 35.00 12/07/19 19:00 88 12/07/19 18:49 88 16 96 35 12/07/19 18:46 38.2 12/07/19 18:00 90 16 137/96 (110) 95 Mechanical Ventilator 35.00 12/07/19 17:00 93 16 140/91 (107) 94 Mechanical Ventilator 35.00 12/07/19 16:47 94 121/85 12/07/19 16:00 99 17 132/93 (106) 91 Mechanical Ventilator 35.00 12/07/19 16:00 92 Mechanical Ventilator 35 12/07/19 15:52 94 121/85 12/07/19 15:21 94 16 92 35 12/07/19 15:00 101 15 129/85 (100) 91 Mechanical Ventilator 35.00 12/07/19 14:00 90 16 118/77 (91) 91 Mechanical Ventilator 35.00 12/07/19 14:00 90 110/78 12/07/19 13:00 90 12/07/19 13:00 90 15 110/78 (89) 91 Mechanical Ventilator 35.00 12/07/19 12:36 94 Mechanical Ventilator 35 12/07/19 12:00 92 15 105/65 (78) 94 Mechanical Ventilator 40.00 12/07/19 11:20 95 17 115/74 12/07/19 11:05 94 108/69 12/07/19 11:00 94 18 108/69 (82) 91 Mechanical Ventilator 40.00 12/07/19 10:24 89 19 93 30 12/07/19 10:00 86 15 97/56 (70) 93 Mechanical Ventilator 30.00 12/07/19 09:00 86 16 102/67 (79) 94 Mechanical Ventilator 30.00 12/07/19 08:31 87 104/65 12/07/19 08:31 87 104/65 12/07/19 08:00 87 15 99/67 (78) 93 Mechanical Ventilator 30.00 12/07/19 07:37 37.2 12/07/19 07:20 92 Mechanical Ventilator 30 12/07/19 07:18 37.1 12/07/19 07:00 89 26 115/76 (89) 93 Mechanical Ventilator 30.00 12/07/19 06:57 88 20 94 30 12/07/19 06:37 88 12/07/19 06:00 89 15 139/93 (108) 97 Mechanical Ventilator 40.00 12/07/19 05:36 91 139/97 12/07/19 05:00 91 15 139/94 (109) 95 Mechanical Ventilator 40.00 I & O 12/08/19 07:00 Intake Total 2250 ml Output Total 6135 ml Balance -3885 ml Height & Weight Height: 5'5" Weight: 220lbs. oz. 99.800459we; 30.00 BMI Method:Stated General Appearance: No Apparent Distress, WD/WN HEENT: Moist Mucous Membranes Neck: Normal Inspection Respiratory: Lungs Clear, Normal Breath Sounds, No Respiratory Distress Cardiovascular: Regular Rate, Rhythm, No Murmur Capillary Refill: Less Than 3 Seconds Peripheral Pulses: 2+ Radial Pulses (R), 2+ Radial Pulses (L) Extremity: Normal Inspection, Non Tender, Pedal Edema Neurologic/Psychiatric: Alert, Oriented x3, No Motor/Sensory Deficits, Normal Mood/Affect Skin: Normal Color, Warm/Dry Results Lab Laboratory Tests 12/07/19 03:05 12/08/19 02:32 Assessment/Plan Assessment/Plan Acute respiratory failure -CK improved to 913. Pt. received Lasix 80mg IVP on 12/06. Currently receiving LR @ 50/hr -I expect pt will need sedation for psychosis/agitation upon extubation. Will try to improve pt's hypoxia prior to extubation. I don't believe pt will tolerate BiPAP after extubation. Agitation/psychosis -Pt receiving Risperdol and Haldol Rhabdomyolysis -Continue IVF -Continue to monitor CK [place] -Monitor -Improving, creatinine now 1.06 Leukocytosis - secondary to steroids PCP intoxication -Education POOL HUERTA DO 12/08/19 0528: Subjective Time Seen by a Provider: 05:23 Exam Exam General Appearance: No Apparent Distress, WD/WN HEENT: Moist Mucous Membranes Neck: Normal Inspection Respiratory: Lungs Clear, Normal Breath Sounds, No Respiratory Distress Cardiovascular: Regular Rate, Rhythm, No Murmur Extremity: Normal Inspection, Non Tender, Pedal Edema Neurologic/Psychiatric: Alert, Oriented x3, No Motor/Sensory Deficits, Normal Mood/Affect Skin: Normal Color, Warm/Dry Assessment/Plan Assessment/Plan Acute respiratory failure -Repeat PCT, CK, and BNP -Pt may need more lasix if CK has continued to improve and if BNP is elevated. -D.c propofol and Versed gtt. Once pt is awake and alert will extubate. Fever r/o infection -[place] culture -Zosyn started last night. Agitation/psychosis -Pt receiving Risperdol and Haldol -PRN Ativan Rhabdomyolysis -Continue IVF -Continue to monitor CK [place] -Monitor -Improving, creatinine now 1.06 Elevated LFTs -Continue to monitor Leukocytosis - secondary to steroids PCP intoxication -Education Supervisory-Addendum Brief Verification & Attestation Participated in pt care: history, MDM, physical Personally performed: exam, history, MDM, supervision of care Care discussed with: Medical Student Procedures: n/a Verification and Attestation of Medical Student E/M Service A medical student performed and documented this service in my presence. I reviewed and verified all information documented by the medical student and made modifications to such information, when appropriate. I personally performed the physical exam and medical decision making. Pool Huerta, Dec 08, 2019,05:35 HAYDEE LYONS,MED STUDENT Dec 08, 2019 04:17 POOL HUERTA DO Dec 08, 2019 05:28
[2019-12-08] MEDS: DexMEDEtomidine 250 ML DRIP 250 ML IV SCH ×2 (05:33→16:48)
[2019-12-08 05:48] LABS: COLOR,URINE YELLOW
[2019-12-08 05:49] LABS: BILIRUBIN,URINE NEGATIVE (NEGATIVE); CLARITY,URINE CLEAR; GLUCOSE, URINE (UA) NEGATIVE (NEGATIVE); KETONES,URINE NEGATIVE (NEGATIVE); LEUKOCYTE ESTERASE ,URINE NEGATIVE (NEGATIVE); NITRITE,URINE NEGATIVE (NEGATIVE); PH,URINE 8.5 (5-9); PROTEIN,URINE NEGATIVE (NEGATIVE)
[2019-12-08 05:52] LABS: RBC,URINE RARE /HPF
[2019-12-08 05:53] LABS: BACTERIA,URINE NEGATIVE /HPF; WBC,URINE RARE /HPF
[2019-12-08] MEDS: LACTATED RINGERS 1,000 ML IV SCH (05:55)
[2019-12-08] MEDS: KCL 20 MEQ TAB (K-DUR) PO SCH (06:05)
[2019-12-08] MEDS: MAGNESIUM 1 GM/100 ML IVPB 100 ML IV SCH (06:05)
[2019-12-08] MEDS: POTASSIUM CL 10MEQ/50ML IVPB 50 ML IV SCH (06:05)
--- NOTE | 2019-12-08 07:56 | Diagnostic Imaging Report ---
Indication: Overdose. Exam compared 12/06. Findings: There is complete atelectasis of the right lower lobe and likely much of the right middle lobe. The left lung shows some patchy infiltrate at the medial base. There is no pneumothorax. An ET tube mid trachea. Impression: 1. Progressive volume loss in the right lung with consolidation at the right middle and lower lobes accompanied by an element of volume loss at least in part atelectasis, pneumonia superimposed not excluded. 2. Medial left basilar infiltrate. 3. Support apparatus projects in good alignment with no pneumothorax. Dictated by: Dictated on workstation # [id number]
--- NOTE | 2019-12-08 08:05 | NUR ---
THIS RN NOTIFIED RT THAT PT WAS FOLLOWING COMMANDS AND AWAKE FOR EXTUBATION. PT EXTUBATED AT THIS TIME, NG INADVERTENTLY REMOVED WITH EXTUBATION, 5L NC APPLIED TO PT BY RT. PT OXYGEN SATURATION 94% ON 5L NC. THIS RN CONTACTED DR. PATEL TO INQUIRE ABOUT VAPOTHERM, WHICH DR. PATEL VERIFIED WAS APPROPRIATE TO USE. VS STABLE, PT FOLLOWING COMMANDS OTHER THAN REFUSES TO SQUEEZE MY HANDS. ORAL SUCTIONING PROVIDED BY THIS RN, COPIOUS AMOUNTS OF SECRETIONS NOTED. PRECEDEX PLACED ON STANDBY BY CORA TANG. WILL CONTINUE TO MONITOR.
[2019-12-08] MEDS: ENALAPRILAT 1.25 MG/1 ML (VASOTEC) 1 ML VIAL IV SCH ×2 (08:34→20:08)
[2019-12-08] MEDS: PANTOPRAZOLE 40 MG (PROTONIX) VIAL IV SCH (08:34)
[2019-12-08] MEDS: risperiDONE 2 MG (RisperDAL) TAB PO SCH ×3 (08:34→20:08)
--- NOTE | 2019-12-08 08:44 | NUR ---
THIS RN NOTIFIED BY PCT THAT PT TEMP 101.4F. COOL RAGS AND FAN APPLIED TO PT DUE TO PT BEING NPO AND WITHOUT AN NG.
[2019-12-08] MEDS ORDERED: FUROSEMIDE 40 MG/4 ML INJ (LASIX) IVP ONE (08:45)
--- NOTE | 2019-12-08 08:46 | Progress Note - Cardiology ---
Cardiology SOAP Progress Note Subjective: Extubated this morning, Still lethargic, opens eyes, nods head, moves feet. Objective: I&O/Vital Signs 12/12/19 12/13/19 12/13/19 12/13/19 23:55 01:13 02:24 04:01 Temp 36.8 36.9 Pulse 90 107 114 Resp 20 18 B/P (MAP) 138/78 (98) 140/83 (102) Pulse Ox 95 91 98 O2 Delivery Room Air Room Air 12/13/19 12/13/19 12/13/19 12/13/19 06:47 07:11 08:00 10:30 Temp 37.0 Pulse 106 111 Resp 18 B/P (MAP) 160/96 (117) Pulse Ox 96 100 98 O2 Delivery Room Air Room Air Room Air 12/13/19 00:00 Intake Total 800 ml Balance 800 ml Weight (Pounds): 220 Weight (Calculated Kilograms): 99.251794 Constitutional: appears stated age; No apparent distress; well-developed, well- nourished Respiratory: chest is bilaterally symmetric, crackles (coarse, diminished throughout) Cardiovascular: regular rate-rhythm, S1 and S2 Gastrointestional: soft, audible bowel sounds Extremities: other (mild to mod swelling upper and lower extremities) Neurologic/Psychiatric: other (moves lower extremities, opens eyes, nods head) Skin: warm/dry; No rash, No ulcerations; other (abrasions to face) Results/Procedures: Labs Laboratory Tests 12/13/19 05:34: White Blood Count 16.7H, Red Blood Count 3.88L, Hemoglobin 10.7L, Hematocrit 33L , Mean Corpuscular Volume 85, Mean Corpuscular Hemoglobin 28, Mean Corpuscular Hemoglobin Concent 33, Red Cell Distribution Width 13.8, Platelet Count 253, Mean Platelet Volume 10.2, Neutrophils (%) (Auto) 70, Lymphocytes (%) (Auto) 18, Monocytes (%) (Auto) 9, Eosinophils (%) (Auto) 3, Basophils (%) (Auto) 0, Neutrophils # (Auto) 11.6H, Lymphocytes # (Auto) 3.1, Monocytes # (Auto) 1.6H, Eosinophils # (Auto) 0.4H, Basophils # (Auto) 0.1, Sodium Level 140, Potassium Level 3.6, Chloride Level 106, Carbon Dioxide Level 21, Anion Gap 13, Blood Urea Nitrogen 18, Creatinine 0.76, Estimat Glomerular Filtration Rate > 60, BUN/Creatinine Ratio 24, Glucose Level 105, Calcium Level 8.7, Magnesium Level 2.0 Microbiology 12/08/19 Gram Stain - Final, Complete 12/08/19 Sputum Culture - Final, Complete Staphylococcus aureus Corynebacterium striatum 12/07/19 Blood Culture - Preliminary, Resulted No growth 12/04/19 Urine Culture - Final, Complete NO GROWTH Procedures NAME: SHOAIB PHELPS [facility] REC#: [id number] PT STATUS: ADM IN : 1985 PHYSICIAN: LEIDY ROMO MD ADMIT DATE: 12/04/19/ICU Draft Date of Exam:12/08/19 CHEST 1 VIEW, AP/PA ONLY Indication: Overdose. Exam compared 12/06. Findings: There is complete atelectasis of the right lower lobe and likely much of the right middle lobe. The left lung shows some patchy infiltrate at the medial base. There is no pneumothorax. An ET tube mid trachea. Impression: 1. Progressive volume loss in the right lung with consolidation at the right middle and lower lobes accompanied by an element of volume loss at least in part atelectasis, pneumonia superimposed not excluded. 2. Medial left basilar infiltrate. 3. Support apparatus projects in good alignment with no pneumothorax. Dictated on workstation # [id number] Dict: 12/08/19 0743 Trans: 12/08/19 0756 CV [id number] Interpreted by: JOVANNY SOMMERS Electronically signed by: A/P: Assessment: ST elevation on EKG are consistent with early repolarization pattern in a young male. Negative serial troponin. Drug overdose - management per Medical and ICU team Extubated on December 08, 2019 Severe cardiomyopathy. Echocardiogram done 12/04/2019 shows an LVEF of 25-30% (likely nonischemic cardiomyopathy). Pneumonia - management per medical services Rhabdomyolysis, improving CK levels. Plan: Continue current regimen Continue IV enalapril and BB, titrate doses up as tolerated, switch to p.o. when extubated Give IV diuretics Monitor lab Replace electrolytes as indicated CANDACE GUDINO Dec 08, 2019 08:46
--- NOTE | 2019-12-08 08:50 | NUR ---
This RT was in patients chart today, getting information for the Mat Protocol. I was informed that the Mat Protocol was going to be cancelled due to Dr changed the frequency of his tx's.
--- NOTE | 2019-12-08 09:40 | NUR ---
TIMELINE NOTE BELOW: 12/08/2019 AT 0932: THIS RN CONTACTED DR. PATEL TO NOTIFY HIM OF PT HR 130 AND BP 160/108. DR. PATEL INFORMED THAT PT HAD ALREADY RECEIVED VASOTEC 1.25MG. 12/08/2019 AT 0933: DR. PATEL INSTRUCTED THIS RN TO ATTEMPT A BEDSIDE SWALLOW STUDY TO SEE IF PT WOULD TOLERATE PO MEDICATIONS. 12/08/2019 AT 0937: THIS RN NOTIFIED DR. PATEL THAT PT IS REFUSING TO SWALLOW WATER. NEW ORDERS TO CHANGE DOSAGE OF IV METOPROLOL. SEE ORDER HX.
[2019-12-08] MEDS ORDERED: meTOprolol 5 MG/5 ML (LOPRESSOR) VIAL IV SCH (09:45)
[2019-12-08] MEDS: morphine INJ 4 MG/ML 1 ML (VIAL/SYRINGE) IVP PRN (10:30)
--- NOTE | 2019-12-08 10:50 | NUR ---
THIS RN NOTIFIED DR. BROWNLEE AND REPORTED THAT PT'S HEART RATE 144BPM. DR. BROWNLEE INSTRUCTED THIS RN TO OBTAIN EKG, START ESMOLOL GTT, AND D/C IV LOPRESSOR.
--- NOTE | 2019-12-08 10:52 | Progress Note - Hospitalist ---
Subjective HPI/CC On Admission Date Seen by Provider: Dec 08, 2019 Time Seen by Provider: 09:00 Pt is a 34yoCM who presented to the ER due to acute psychosis. He is currently intubated and sedated and unable to provide any history. All history obtained from the records. Apparently police were called due to pt acting erratically. He has been smoking 'wet' (cigarettes dipped in formaldehyde) for the past two days and became increasingly erratic and aggressive so his friends called the police. He was outside of the house beating his head on the sidewalk and yelling and screaming. He was given 2mg of Ativan by EMS which helped to calm the patient for a short period of time. Unfortunately this was short lived and he became more agitated in the ER. He at first calmed with verbal direction but this was not effective shelter. requiring 500mg of Ketamine, 2mg Ativan x2, and 20mg of Geodon. Poison Control was contacted and believed this to be more consistent with synthetic marijuana intoxication. They recommended admission and checking CK. Unfortunately he did require intubation for airway protection. Subjective/Events-last exam He was extubated this morning. He is still about lethargic and his voice is hoarse and weak. He denies any pain. He denies any trouble breathing. Objective Exam Vital Signs Vital Signs Date Time Temp Pulse Resp B/P (MAP) Pulse Ox O2 Delivery O2 Flow Rate FiO2 12/08/19 10:22 37.6 12/08/19 09:00 113 33 159/111 (127) 97 Vapotherm 40.00 50.00 12/08/19 07:33 30 Capillary Refill : Less Than 3 SecondsLess Than 3 Seconds General Appearance: No Apparent Distress, WD/WN Respiratory: Lungs Clear, Normal Breath Sounds, No Respiratory Distress Cardiovascular: No Murmur, Tachycardia Gastrointestinal: Normal Bowel Sounds, Non Tender, Soft Extremity: Normal Inspection, Non Tender, Pedal Edema Neurologic/Psychiatric: Alert, Disoriented, Motor Weakness Skin: Normal Color, Warm/Dry Results/Procedures Lab Laboratory Tests 12/08/19 02:32 Patient resulted labs reviewed. Imaging: Reviewed Imaging Report Assessment/Plan Assessment and Plan Assess & Plan/Chief Complaint Acute Respiratory Failure Acute Psychosis Polysubstance abuse Pneumonia Continue on vent Pulmonology following, appreciate assistance Continue Risperdal Started on Zosyn DVT prophylaxis: Lovenox Hypokalemia, resolved [place], resolved Rhabdomyolysis, resolved Diagnosis/Problems Diagnosis/Problems (1) Respiratory failure Status: Acute Qualifiers: Chronicity: acute Respiratory failure complication: hypoxia and hypercapnia Qualified Codes: J96.01 - Acute respiratory failure with hypoxia; J96.02 - Acute respiratory failure with hypercapnia (2) Acute psychosis Status: Acute (3) Illicit drug use Status: Acute (4) Rhabdomyolysis Status: Acute Qualifiers: Rhabdomyolysis type: non-traumatic Qualified Codes: M62.82 - Rhabdomyolysis (5) [place] (acute kidney injury) Status: Resolved Resolution Date/Time: 12/07/19 @ 13:14 (6) Pneumonia Status: Acute Clinical Quality Measures DVT/VTE Risk/Contraindication: Risk Factor Score Per Nursin RFS Level Per Nursing on Admit: 4+=Very High HERMILA DUMONT MD Dec 08, 2019 10:52
[2019-12-08] MEDS ORDERED: ESMOLOL DRIP PREMIX 250 ML IV ONE (10:58)
[2019-12-08] MEDS: ESMOLOL DRIP PREMIX 250 ML IV SCH ×3 (11:04→21:09)
--- NOTE | 2019-12-08 11:26 | Progress Note - Cardiology ---
Cardiology SOAP Progress Note Subjective: Extubated this am, but not verbally communicative Does not report any symptoms Objective: I&O/Vital Signs 12/09/19 12/09/19 12/09/19 12/09/19 03:00 04:00 04:00 05:00 Pulse 88 94 89 Resp 21 31 19 B/P (MAP) 120/86 (97) 133/98 (110) 150/109 (123) Pulse Ox 92 93 96 97 O2 Delivery Vapotherm Vapotherm Vapotherm Vapotherm O2 Flow Rate 21.00 21.00 20.00 21.00 30.00 30.00 30.00 FiO2 21 12/09/19 12/09/19 12/09/19 12/09/19 05:35 05:49 06:00 06:46 Pulse 104 114 Resp 15 B/P (MAP) 116/82 (93) Pulse Ox 95 O2 Delivery Room Air Nasal Cannula Nasal Cannula O2 Flow Rate 1.00 1.00 12/09/19 12/09/19 12/09/19 12/09/19 06:47 06:48 07:00 07:45 Pulse 123 124 Resp 28 B/P (MAP) 176/123 (140) 181/130 (147) Pulse Ox 92 94 94 O2 Delivery Nasal Cannula Nasal Cannula Nasal Cannula Nasal Cannula O2 Flow Rate 3.00 3.00 3.00 3.00 12/09/19 12/09/19 12/09/19 12/09/19 07:52 07:52 08:42 09:30 Temp 37.8 39.4 Pulse 130 Resp 19 B/P (MAP) 157/107 (124) 196/108 (137) Pulse Ox 100 93 O2 Delivery Nasal Cannula Room Air Room Air O2 Flow Rate 3.00 12/09/19 12/09/19 12/09/19 12/09/19 09:58 10:22 10:28 10:46 Temp 39.4 37.6 38.2 B/P (MAP) 173/108 (129) Pulse Ox 92 O2 Delivery Room Air 12/09/19 12/09/19 12/09/19 11:06 12:00 12:37 Temp 37.6 37.4 Pulse 141 144 Resp 22 B/P (MAP) 145/101 (116) Pulse Ox 95 O2 Delivery Room Air 12/09/19 00:00 Intake Total 840 ml Output Total 4100 ml Balance -3260 ml Weight (Pounds): 220 Weight (Calculated Kilograms): 99.571435 Constitutional: appears stated age, well-developed, well-nourished, other (mildly agitated and restless) Respiratory: chest is bilaterally symmetric, crackles (coarse, diminished throughout) Cardiovascular: regular rate-rhythm, S1 and S2 Gastrointestional: No tender; soft, audible bowel sounds Extremities: other (mild to mod swelling upper and lower extremities) Neurologic/Psychiatric: other (moves lower extremities, opens eyes, nods head) Skin: warm/dry; No rash, No ulcerations; other (abrasions to face) Results/Procedures: Labs Laboratory Tests 12/09/19 03:08: Sodium Level 139, Potassium Level 4.2, Chloride Level 104, Carbon Dioxide Level 24, Anion Gap 11, Blood Urea Nitrogen 17, Creatinine 0.98, Estimat Glomerular Filtration Rate > 60, BUN/Creatinine Ratio 17, Glucose Level 110H, Calcium Level 9.6, Phosphorus Level 3.5, Magnesium Level 2.4, Total Creatine Kinase 513H, Triglycerides Level 155H 12/09/19 03:25: White Blood Count 14.5H, Red Blood Count 4.30L, Hemoglobin 11.9L, Hematocrit 35L , Mean Corpuscular Volume 82, Mean Corpuscular Hemoglobin 28, Mean Corpuscular Hemoglobin Concent 34, Red Cell Distribution Width 13.8, Platelet Count 202, Mean Platelet Volume 10.8H, Neutrophils (%) (Auto) 78H, Lymphocytes (%) (Auto) 10L, Monocytes (%) (Auto) 10, Eosinophils (%) (Auto) 2, Basophils (%) (Auto) 0, Neutrophils # (Auto) 11.3H, Lymphocytes # (Auto) 1.4, Monocytes # (Auto) 1.4H, Eosinophils # (Auto) 0.3, Basophils # (Auto) 0.0 Microbiology 12/08/19 Gram Stain - Final, Resulted 12/08/19 Sputum Culture - Preliminary, Resulted Staphylococcus aureus 12/07/19 Blood Culture - Preliminary, Resulted No growth 12/04/19 Urine Culture - Final, Complete NO GROWTH A/P: Assessment: Sinus tach (after extubation) likely due a noncardiac source ST elevation on EKG are consistent with early repolarization pattern in a young male. Negative serial troponin. Drug overdose - management per Medical and ICU team Extubated on December 08, 2019 Severe cardiomyopathy. Echocardiogram done 12/04/2019 shows an LVEF of 25-30% (likely nonischemic cardiomyopathy). Pneumonia - management per Medical services Rhabdomyolysis, improving CK levels. Plan: Look for noncardiac source of sinus tach and treat, please Continue IV enalapril and BB, titrate doses up as tolerated, switch to p.o. when extubated Give IV diuretics Monitor lab Replace electrolytes as indicated MARY BROWNLEE MD FACP FAC CCDS Dec 08, 2019 11:26
--- NOTE | 2019-12-08 11:31 | NUR ---
20ML VERSED WASTED BY THIS RN AND WITNESSED BY CORA LR.
--- NOTE | 2019-12-08 11:50 | NUR ---
BED ALARM GOING OFF. THIS RN IMMEDIATELY RESPONDED TO PT'S ROOM AND WITNESSED THE PT FALL OVER BEDRAILS X2 (ALL 4 BEDRAILS UP AT TIME OF FALL) FROM LEFT SIDE OF BED. PT ASSESSED FOR BRUISING, SWELLING, LUMPS, KNOTS, CUTS, BLEEDING. NO VISIBLE INJURIES NOTED. PT AWAKE AND ALERT AND SPEAKING TO THIS RN. PT PLACED BACK IN BED WITH STAFF ASSIST X5. IV X2 INTACT AND PATENT, BLANCO CATHETER INTACT AND PATENT. PHYSICIAN NOTIFIED. PATIENT PLACED WITH 1:1 SITTER. VS STABLE, WILL CONTINUE TO MONITOR.
--- NOTE | 2019-12-08 13:08 | NUR ---
CM/SS follow up. CM/SS visited with the patient's Mother Renetta ([phone]) to obtain history for the patient. Renetta reports that the patient has a long history of mental health illnesses. She stated that he had multiple different diagnosis throughout childhood, adolescence, and adult lawrence. Renetta stated that in May the patient verbalized suicidal ideations to her; therefore, she had him admitted to [facility] for a 96 hour hold. The patient was diagnosed with Narcissistic personality disorder, Anti-social personality disorder, Generalized Anxiety Disorder, PCP mood disorder, Cannibis uses, and Suicidal ideation. The patient's mother stated that she is working on getting the patient set up with Social Security Disability because he is not able to take care of his own stuff. This cm/ss will contact them tomorrow to check on status. CM/SS will continue to follow.
[2019-12-08] MEDS: RT-ALBUTEROL/IPRATROPIUM 3 ML (DUONEB) VIAL INH SCH ×3 (14:43→21:45)
[2019-12-08] MEDS: LORazepam INJ 2 MG/ML (ATIVAN) VIAL IV PRN ×2 (15:07→21:53)
[2019-12-08] MEDS: ENOXAPARIN 40 MG/0.4 ML (LOVENOX) SYR SC SCH (20:08)
[2019-12-09] VITALS (15 sets, daily range): BP systolic 116–196; BP diastolic 82–130
[2019-12-09] MEDS: PIPERACILLIN/TAZO 4.5 GM/NS 100 ML IV SCH ×4 (00:47→08:44)
[2019-12-09] MEDS: DexMEDEtomidine 250 ML DRIP 250 ML IV SCH (00:49)
[2019-12-09] MEDS: RT-ALBUTEROL/IPRATROPIUM 3 ML (DUONEB) VIAL INH SCH ×6 (02:25→22:29)
[2019-12-09 03:34] LABS: BASOPHILS % (AUTO) 0 % (0-10); EOSINOPHILS # (AUTO) 0.3 10^3/uL (0.0-0.3); EOSINOPHILS % (AUTO) 2 % (0-10); HEMATOCRIT 35 % (40-54); HEMOGLOBIN 11.9 G/DL (13.3-17.7); LYMPHOCYTES # (AUTO) 1.4 X 10^3 (1.0-4.0); LYMPHOCYTES % (AUTO) 10 % (12-44); MEAN CORPUSCULAR HEMOGLOBIN 28 PG (25-34); MEAN CORPUSCULAR HGB CONC 34 G/DL (32-36); MEAN CORPUSCULAR VOLUME 82 FL (80-99); MEAN PLATELET VOLUME 10.8 FL (7.4-10.4); MONOCYTES # (AUTO) 1.4 X 10^3 (0.0-1.0); MONOCYTES % (AUTO) 10 % (0-12); NEUTROPHILS # (AUTO) 11.3 X 10^3 (1.8-7.8); NEUTROPHILS % (AUTO) 78 % (42-75); PLATELET COUNT 202 10^3/uL (130-400); RED CELL DISTRIBUTION WIDTH 13.8 % (10.0-14.5); WHITE BLOOD COUNT 14.5 10^3/uL (4.3-11.0)
[2019-12-09 03:55] LABS: CHLORIDE 104 MMOL/L (98-107); POTASSIUM 4.2 MMOL/L (3.6-5.0); SODIUM 139 MMOL/L (135-145)
[2019-12-09 03:57] LABS: CALCIUM 9.6 MG/DL (8.5-10.1); GLUCOSE 110 MG/DL (70-105)
[2019-12-09 03:58] LABS: TRIGLYCERIDES 155 MG/DL (<150)
[2019-12-09 03:59] LABS: CARBON DIOXIDE 24 MMOL/L (21-32)
[2019-12-09 04:01] LABS: CREATININE SERUM 0.98 MG/DL (0.60-1.30); GFR ESTIMATED > 60; PHOSPHORUS 3.5 MG/DL (2.3-4.7)
[2019-12-09 04:02] LABS: BUN/CREATININE RATIO 17
[2019-12-09 04:04] LABS: MAGNESIUM 2.4 MG/DL (1.6-2.4)
[2019-12-09] MEDS: POTASSIUM CL 10MEQ/50ML IVPB 50 ML IV SCH (04:24)
[2019-12-09] MEDS: MAGNESIUM 1 GM/100 ML IVPB 100 ML IV SCH (04:24)
[2019-12-09] MEDS: KCL 20 MEQ TAB (K-DUR) PO SCH (04:24)
--- NOTE | 2019-12-09 04:27 | Pulmonary Progress Note ---
HAYDEE LYONS,MED STUDENT 12/09/19 0427: Subjective Date Seen by a Provider: Dec 09, 2019 Time Seen by a Provider: 04:00 Subjective/Events-last exam Pt. is on vapotherm this am. Extubated yesterday 12/07. Pt is drowsy and weak, but denies SOB or chest pain. Sepsis Event Evaluation Height, Weight, BMI Height: 5'5" Weight: 220lbs. oz. 99.115081ce; 30.00 BMI Method:Stated Exam Exam Vital Signs Date Time Temp Pulse Resp B/P (MAP) Pulse Ox O2 Delivery O2 Flow Rate FiO2 12/09/19 04:00 96 Vapotherm 20.00 21 12/09/19 04:00 94 31 133/98 (110) 93 Vapotherm 21.00 30.00 12/09/19 03:00 88 21 120/86 (97) 92 Vapotherm 21.00 30.00 12/09/19 02:25 98 Vapotherm 20.00 21 12/09/19 02:00 36.4 12/09/19 02:00 93 19 123/87 (99) 98 Vapotherm 21.00 30.00 12/09/19 01:56 Vapotherm 21.00 30.00 12/09/19 01:00 94 21 126/83 (97) 96 Vapotherm 20.00 30.00 12/09/19 01:00 92 12/09/19 00:49 94 125/89 12/09/19 00:00 96 30 122/89 (100) 97 Vapotherm 20.00 30.00 12/09/19 00:00 38.2 12/09/19 00:00 96 Vapotherm 20.00 30 12/08/19 23:00 101 20 124/82 (96) 98 Vapotherm 20.00 30.00 12/08/19 22:00 102 29 125/98 (107) 95 Vapotherm 20.00 30.00 12/08/19 21:45 91 Vapotherm 20.00 30 12/08/19 21:09 111 125/88 12/08/19 21:00 109 25 125/88 (100) 96 Vapotherm 20.00 30.00 12/08/19 20:38 37.2 12/08/19 20:08 37.8 12/08/19 20:00 37.8 12/08/19 20:00 96 Vapotherm 20.00 30 12/08/19 20:00 105 19 136/89 (105) 96 Vapotherm 20.00 30.00 12/08/19 19:00 106 29 142/100 (114) 95 Vapotherm 20.00 30.00 12/08/19 19:00 104 12/08/19 18:57 93 Vapotherm 20.00 30 12/08/19 18:00 110 47 150/114 (126) 98 Vapotherm 20.00 30.00 12/08/19 17:00 108 41 138/104 (115) 97 Vapotherm 20.00 30.00 12/08/19 16:48 106 124/90 12/08/19 16:26 105 135/116 12/08/19 16:00 107 38 131/93 (106) 96 Vapotherm 20.00 30.00 12/08/19 16:00 38.1 12/08/19 15:40 38.1 12/08/19 15:33 96 Vapotherm 20.00 30 12/08/19 15:10 38.3 12/08/19 15:00 116 31 156/112 (127) 95 Vapotherm 20.00 30.00 12/08/19 14:43 Vapotherm 20.00 30.00 12/08/19 14:43 99 Vapotherm 20.00 30 12/08/19 14:00 128 22 160/94 (116) 98 Vapotherm 20.00 40.00 12/08/19 13:14 38.2 12/08/19 13:00 128 27 131/87 (102) 93 Vapotherm 20.00 40.00 12/08/19 12:56 129 12/08/19 12:19 161 12/08/19 12:00 94 Vapotherm 20.00 40 12/08/19 12:00 129 29 133/94 (107) 98 Vapotherm 20.00 40.00 12/08/19 11:55 149 159/102 12/08/19 11:13 Vapotherm 25.00 40.00 12/08/19 11:06 154 144/106 12/08/19 11:04 156 144/106 12/08/19 11:00 149 35 144/106 (119) 100 Vapotherm 40.00 50.00 12/08/19 10:22 37.6 12/08/19 10:00 114 12 136/77 (96) 96 Vapotherm 40.00 50.00 12/08/19 09:00 113 33 159/111 (127) 97 Vapotherm 40.00 50.00 12/08/19 08:38 38.4 12/08/19 08:05 Vapotherm 40.00 50.00 12/08/19 08:01 37.7 12/08/19 08:00 106 38 164/116 (132) 98 Mechanical Ventilator 30.00 12/08/19 07:33 92 Mechanical Ventilator 30 12/08/19 07:00 98 16 136/89 (105) 90 Mechanical Ventilator 30.00 12/08/19 06:41 95 12/08/19 06:00 95 15 125/83 (97) 92 Mechanical Ventilator 30.00 12/08/19 05:49 89 16 92 30 12/08/19 05:33 88 12/08/19 05:22 37.6 12/08/19 05:00 88 12 125/84 (98) 94 Mechanical Ventilator 30.00 I & O 12/09/19 07:00 Intake Total 1090 ml Output Total 4990 ml Balance -3900 ml Height & Weight Height: 5'5" Weight: 220lbs. oz. 99.158302bs; 30.00 BMI Method:Stated General Appearance: No Apparent Distress, WD/WN HEENT: Moist Mucous Membranes Neck: Normal Inspection Respiratory: Lungs Clear, Normal Breath Sounds, No Respiratory Distress Cardiovascular: No Murmur, Normal Peripheral Pulses Capillary Refill: Less Than 3 Seconds Peripheral Pulses: 2+ Radial Pulses (R), 2+ Radial Pulses (L) Extremity: Normal Inspection, Non Tender, Pedal Edema Neurologic/Psychiatric: Alert, Disoriented, Motor Weakness Skin: Normal Color, Warm/Dry Results Lab Laboratory Tests 12/08/19 02:32 12/09/19 03:08 12/09/19 03:25 Assessment/Plan Assessment/Plan Acute respiratory failure -Extubated 12/07 -On vapotherm Fever r/o infection -[place] culture -Zosyn started last night. -PCT 0.24 on 12/07 Agitation/psychosis -Pt receiving Risperdol and Haldol -PRN Ativan Rhabdomyolysis -Continue IVF -Continue to monitor CK [place] -Monitor -Improving, creatinine now 0.98 Elevated LFTs -Continue to monitor Leukocytosis - secondary to steroids PCP intoxication -Education POOL HUERTA DO 12/09/19 0621: Exam Exam General Appearance: No Apparent Distress, WD/WN HEENT: Moist Mucous Membranes Neck: Normal Inspection Respiratory: Lungs Clear, Normal Breath Sounds, No Respiratory Distress Cardiovascular: No Murmur, Normal Peripheral Pulses Extremity: Normal Inspection, Non Tender, Pedal Edema Neurologic/Psychiatric: Alert, Disoriented, Motor Weakness Skin: Normal Color, Warm/Dry Assessment/Plan Assessment/Plan Acute respiratory failure -Extubated 12/07 -On vapotherm -D/C Vapotherm Currently sedated -D/C precedex -To 4th floor later today vs home if more awake Fever r/o infection -[place] culture -Zosyn started last night. Agitation/psychosis -Pt receiving Risperdol and Haldol -PRN Ativan Rhabdomyolysis -Continue IVF -Continue to monitor CK [place] -Monitor -Improving, creatinine now 0.98 Elevated LFTs -Continue to monitor Leukocytosis - secondary to steroids PCP intoxication -Education Supervisory-Addendum Brief Verification & Attestation Participated in pt care: history, MDM, physical Personally performed: exam, history, MDM, supervision of care Care discussed with: Medical Student Procedures: n/a Verification and Attestation of Medical Student E/M Service A medical student performed and documented this service in my presence. I reviewed and verified all information documented by the medical student and made modifications to such information, when appropriate. I personally performed the physical exam and medical decision making. Pool Huerta, Dec 09, 2019,06:21 HAYDEE LYONS,MED STUDENT Dec 09, 2019 04:27 POOL HUERTA DO Dec 09, 2019 06:21
[2019-12-09] MEDS ORDERED: cloNIDine 0.2 MG PATCH (CATAPRES TTS) TDSY TD ONE (05:15)
[2019-12-09] MEDS: LORazepam INJ 2 MG/ML (ATIVAN) VIAL IV PRN ×2 (05:23→13:57)
--- NOTE | 2019-12-09 05:43 | Diagnostic Imaging Report ---
Indication: Drug overdose Portable chest 3:34 AM Heart size and pulmonary vascularity are normal. There is infiltrate present in the right lower lung with small effusion. Left lung is clear. IMPRESSION: Right lower lung infiltrate with small right pleural effusion. No change compared to the previous day. Dictated by: Dictated on workstation # [id number]
[2019-12-09] MEDS: ENALAPRILAT 1.25 MG/1 ML (VASOTEC) 1 ML VIAL IV SCH (06:07)
[2019-12-09] MEDS: LACTATED RINGERS 1,000 ML IV SCH ×2 (06:45→12:59)
[2019-12-09] MEDS ORDERED: LABETALOL HCL 20 MG/4 ML VIAL IV ONE (07:30)
[2019-12-09] MEDS: LABETALOL HCL 20 MG/4 ML VIAL IV SCH ×2 (08:43→17:30)
[2019-12-09] MEDS: risperiDONE 2 MG (RisperDAL) TAB PO SCH ×2 (08:44→20:37)
[2019-12-09] MEDS: PANTOPRAZOLE 40 MG (PROTONIX) VIAL IV SCH (08:44)
--- NOTE | 2019-12-09 09:30 | NUR ---
RECEIVED PT FROM ICU AND REPORT FROM CORA YEPEZ. PT HAS SITTER PT IS STABLE AND COOPERATIVE AT THIS TIME
--- NOTE | 2019-12-09 09:30 | NUR ---
I HAVE REVIWED LUCHO SHEPHERD'S ASSESSMENT AND AGREE WITH IT
[2019-12-09] MEDS: ACETAMINOPHEN 325 MG TABLET PO PRN (09:58)
--- NOTE | 2019-12-09 10:08 | Physical Therapy Evaluation ---
PT Evaluation-General Medical Diagnosis Admission Date Dec 04, 2019 at 06:31 Medical Diagnosis: acute respiratory failure Onset Date: Dec 04, 2019 Therapy Diagnosis Therapy Diagnosis: impaired mobility, strength, endurance Height/Weight Height (Feet): 5 Height (Inches): 5 Weight (Pounds): 220 Precautions Precautions/Isolations: Aspiration, Fall Prevention, Standard Precautions Weight Bear Status Right Lower Extremity: Right Weight Bearing/Tolerated Left Lower Extremity: Left Weight Bearing/Tolerated Referral Physician: Jazzy Reason for Referral: Evaluation/Treatment Medical History Additional Medical History drug abuse Reviewed History: Yes Social History Current Living Status: Alone Entry Into Home: Stairs With Railing PT Steps Into Home: 3 Patient is very confused, unsure about accuracy of home environment. Prior Prior Level of Function SCALE: Activities may be completed with or without assistive devices. 5-Unthzahuvk-lffsgnn completes the activity by him/herself with no assistance from a helper. 5-Set-up or Clean-up Assistance-helper sets up or cleans up; patient completes activity. [place] assists only prior to or following the activity. 4-Supervision or Touching Assistance-helper provides verbal cues and/or touching/steadying and/or contact guard assistance as patient completes activity. Assistance may be provided throughout the activity or intermittently. 3-Partial/Moderate Assistance-helper does LESS THAN HALF the effort. [place] lifts, holds or supports trunk or limbs, but provides less than half the effort. 2-Substantial/Maximal Assistance-helper does MORE THAN HALF the effort. [place] lifts or holds trunk or limbs and provides more than half the effort. 8-Pjrugvmnw-wfrmit does ALL the effort. Patient does none of the effort to com plete the activity. Or, the assistance of 2 or more helpers is required for the patient to complete the activity. If activity was not attempted, code reason: 7-Patient Refused. 9-Not Applicable-not attempted and the patient did not perform the activity before the current illness, exacerbation or injury. 10-Not Attempted due to Environmental Limitations-(lack of equipment, weather restraints, etc.). 88-Not Attempted due to Medical Conditions or Safety Concerns. Bed Mobility: 6 Transfers (B,C,W/C): 6 Gait: 6 Stairs: 6 Indoor Mobility (Ambulation): Independent Stairs: Independent PT Evaluation-Current Subjective Patient in bed pre tx, agrees to PT, has no complaints of pain. Patient is very confused, agitated. Pt/Family Goals none stated Objective Patient Orientation: Person, Confused Attachments: Louise Catheter, IV ROM/Strength ROM Lower Extremities WNL Strength Lower Extremities 2/5 gross BLE, patient could not perform more detailed strength testing due to confusion and agitation. Sensory Hearing: Functional Transfers Roll Left to Right (QC): 2 Sit to Lying (QC): 2 Lying to Sitting/Side of Bed(Q: 2 Patient sat at the edge of the bed for about 7 min, standing was not attempted due to BLE weakness and confusion and agitation. Patient needed min assist to maintain sitting balance, he was able to kick his legs a times. Balance Sitting Static: Poor Sitting Dynamic: Poor Assessment/Needs Patient has impaired mobility, strength, endurance. Very confused and agitated. Patient in bed post tx with nurse call, phone, tray, bed alarm on, sitter and nurse in room. Rehab Potential: Guarded PT Group Home Goals Group Home Goals PT Group Home Goals Time Frame: Dec 16, 2019 Roll Left & Right (QC): 3 Sit to Lying (QC): 3 Lying-Sitting on Side/Bed(QC): 3 Sit to Stand (QC): 3 Chair/Omg-hx-Htziz Xfer(QC): 3 Walk 10 feet (QC): 3 PT Plan Problem List Problem List: Activity Tolerance, Functional Strength, Safety, Balance, Gait, Transfer, Bed Mobility, ROM Treatment/Plan Treatment Plan: Continue Plan of Care Treatment Plan: Bed Mobility, Education, Functional Activity Anila, Functional Strength, Gait, Safety, Therapeutic Exercise, Transfers Treatment Duration: Dec 16, 2019 Frequency: 6 times per week Estimated Hrs Per Day: .25 hour per day Patient and/or Family Agrees t: Yes Safety Risks/Education Patient Education: Transfer Techniques, Correct Positioning, Safety Issues Teaching Recipient: Patient Teaching Methods: Demonstration, Discussion Response to Teaching: Reinforcement Needed Discharge Recommendations Plan Patient will perform bed mobility and transfer training, balance and endurance training, functional strengthening, gait training, and education, to improve functional mobility and independence at home. Therapy Discharge Recommendati: 24 Hour Supervision Time/GCodes Time In: 09 Time Out: 09 Total Billed Treatment Time: 16 Total Billed Treatment 1 visit EVL ALEXIA MYERS PT Dec 09, 2019 10:08
--- NOTE | 2019-12-09 10:25 | Occupational Therapy Eval ---
OT Evaluation-General/PLF Medical Diagnosis Admission Date Dec 04, 2019 at 06:31 Medical Diagnosis: acute respiratory failure Onset Date: Dec 04, 2019 Therapy Diagnosis Therapy Diagnosis: impaired ADLs/functional mobility Height/Weight Height (Feet): 5 Height (Inches): 5 Weight (Pounds): 220 Precautions Precautions/Isolations: Aspiration, Fall Prevention, Standard Precautions Referral Physician: Eitan Referral Reason: Evaluation/Treatment Medical History Current History Per H&P: "Pt is a 34yoCM who presented to the ER due to acute psychosis. He is currently intubated and sedated and unable to provide any history. All history obtained from the records. Apparently police were called due to pt acting erratically. He has been smoking 'wet' (cigarettes dipped in formaldehyde) for the past two days and became increasingly erratic and aggressive so his friends called the police. He was outside of the house beating his head on the sidewalk and yelling and screaming. He was given 2mg of Ativan by EMS which helped to calm the patient for a short period of time. Unfortunately this was short lived and he became more agitated in the ER. He at first calmed with verbal direction but this was not effective termination clerk. requiring 500mg of Ketamine, 2mg Ativan x2, and 20mg of Geodon. Poison Control was contacted and believed this to be mo re consistent with synthetic marijuana intoxication. They recommended admission and checking CK. Unfortunately he did require intubation for airway protection." Social History Current Living Status: Alone Entry Into Home: Stairs With Railing Steps Into Home: 3 This information was gathered from pt, unsure of the accuracy of information provided. ADL-Prior Level of Function SCALE: Activities may be completed with or without assistive devices. 9-Kexbkeesss-fscxykf completes the activity by him/herself with no assistance from a helper. 5-Set-up or Clean-up Assistance-helper sets up or cleans up; patient completes activity. [place] assists only prior to or following the activity. 4-Supervision or Touching Assistance-helper provides verbal cues and/or touching/steadying and/or contact guard assistance as patient completes activity. Assistance may be provided throughout the activity or intermittently. 3-Partial/Moderate Assistance-helper does LESS THAN HALF the effort. [place] lifts, holds or supports trunk or limbs, but provides less than half the effort. 2-Substantial/Maximal Assistance-helper does MORE THAN HALF the effort. [place] lifts or holds trunk or limbs and provides more than half the effort. 3-Zlepqeogx-akncba does ALL the effort. Patient does none of the effort to complete the activity. Or, the assistance of 2 or more helpers is required for the patient to complete the activity. If activity was not attempted, code reason: 7-Patient Refused. 9-Not Applicable-not attempted and the patient did not perform the activity before the current illness, exacerbation or injury. 10-Not Attempted due to Environmental Limitations-(lack of equipment, weather restraints, etc.). 88-Not Attempted due to Medical Conditions or Safety Concerns. ADL PLOF Comments Pt unable to provide information about PLOF with ADLs due to AMS. Per chart review, Sahil CAMPUZANO, spoke with pt's mother who reports pt has a long history of mental health illnesses and he is unable to take care of his own stuff. His mother is working on getting pt set up with Social Security Disability. Based on chart review, pt most likely required some level of assi stance at PLOF, but unknown at this time. Pt does report being independent with functional mobility at PLOF. Self Care: Needed Some Help Functional Cognition: Needed Some Help OT Current Status Subjective Pt laying in bed with sitter present and bed alarm on. Mental Status/Objective Patient Orientation: Person, Confused Attachments: Louise Catheter, IV, Telemetry Current Upper Extremity ROM BUE shoulder flexion to approx 40 degrees, pt had difficulty following instructi ons for UE screen. Upper Extremity Coordination impaired Upper Extremity Sensation unable to assess Upper Extremity Strength grossly 2/5 BUE, pt unable to follow direction for MMT Other Treatments OT introduced self to pt and attempted to get PLOF/history from pt, pt reports living alone and being able to get around himself, but does not provide information about PLOF with ADLs. Based on chart review, pt most likely required some level of assistance with ADLs but it is unknown at this time. Pt participated in UE screen, but unable to follow direction for MMT. Pt required max assist with rolling side to side in bed, and max assist supine to sit EOB transfer. Pt sat EOB for approx 7 mins, with min A required to maintain sitting balance. Pt able to move legs and arms at times during sitting. Standing was not attempted due to confusion and agitation. Pt then transferred sit to supine with max assist. Post OT Tx, pt laying in bed, call light in reach, all needs met, nurse and sitter present, bed alarm on. Education OT Patient Education: Correct positioning, Energy conservation, Modified ADL techniques, Progress toward Goal/Update tx plan, Purpose of tx/functional activities, Transfer techniques Teaching Recipient: Patient Teaching Methods: Demonstration, Discussion Response to Teaching: Reinforcement Needed OT Processing Mgr Goals Usp Goals Time Frame: Dec 23, 2019 Eating (QC): 6 Oral Hygiene (QC): 5 Toileting Hygiene (QC): 4 Shower/Bathe Self (QC): 3 Upper Body Dressing (QC): 4 Lower Body Dressing (QC): 3 On/Off Footwear (QC): 3 1=Demonstrate adherence to instructed precautions during ADL tasks. 2=Patient will verbalize/demonstrate understanding of assistive devices/modifications for ADL. 3=Patient will improve strength/tolerance for activity to enable patient to perform ADL's. OT Education/Plan Problem List/Assessment Assessment: Decreased Activ Tolerance, Decreased Safety Aware, Decreased UE Strength, Impaired Bed Mobility, Impaired Cognition, Impaired Coordination, I mpaired Funct Balance, Impaired I ADL's, Impaired Self-Care Skills, Restricted Funct UE ROM Discharge Recommendations Plan/Recommendations: Continue POC Therapy Discharge Recommendati: 24 Hour Supervision Treatment Plan/Plan of Care Patient would benefit from OT for education, treatment and training to promote independence in ADL's, mobility, safety and/or upper extremity function for ADL's. Plan of Care: ADL Retraining, Functional Mobility, UE Funct Exercise/Act Treatment Duration: Dec 23, 2019 Frequency: 5 times per week Estimated Hrs Per Day: .25 hour per day Rehab Potential: Guarded Time/GCodes Start Time: 09:39 Stop Time: 09:55 Total Time Billed (hr/min): 16 Billed Treatment Time 1, YOLIS CATALAN OT Dec 09, 2019 10:25
--- NOTE | 2019-12-09 10:30 | ST Dysphagia Evaluation ---
Speech Evaluation-General Medical Diagnosis acute respiratory failure Onset Date: Dec 04, 2019 Therapy Diagnosis Therapy Diagnosis: Oropharyngeal Dysphagia Precautions Precautions: Aspiration Referral Referring Physician: Dr. Laird Medical History Reviewed History: Yes Social History Current Living Status: Alone Speech PLF/Current-Dysphagia Prior Level of Function Patient lives home alone where he was independent for his daily needs. Subjective Patient was resting in his bed drinking his chocolate milk when I entered his room. He had a sitter in the room with him. Cognitive Status Patient Orientation: Person, Confused Oral Motor Skills Dentition: Natural, Tumbled, Stained Ability to Follow Directions: Good Oral Expression Ability: Mild Impairment Face Facial Symmetry: Symmetrical Oral-Facial Assessment Oral-Facial Dentition: Normal Labial Seal Description: Normal Smile: Normal Puff Cheeks: Normal Lingual Protrusion: Normal Lingual ROM: Normal Lingual Strength: Normal Pharynx Velopharyngeal Move.: Normal Volitional Dry Swallow: Yes Voluntary Cough: Yes Can Clear Throat Volitionally: Yes Dysphagia Evaluation Consistencies Presented: Regular, Thin Liquid, Mechanical Soft Oral phase is within normal range of function for all consistencies presented. Pharyngeal phase is within normal range of function for all consistencies presented. Dietary Recommendations: Regular Liquid Recommendations: Thin Swallowing Precautions: Alternate Liquids/Solids, Decreased Bolus 1/2 Tsp, Liquids from Straw, Small Bites and Sips, Sitting Upright 90 Degrees, Sitting 90 Degrees 30 Post Intake Dysphagia Evaluation Summary Patient is a 34 y/o male who was brought to the ER due to respiratory failure brought on by "wet" cigarettes. Patient was intubated upon arrival with extubation occurring yesterday. Patient completed the Bedside Dysphagia Evaluation per physician order. Patient was sitting up in bed drinking a chocolate milk when I entered his room. There was a sitter present in his room at the time of evaluation as well. Patient was given 1/2 tsp of thin liquid x2 and small sips via straw x3 without difficulty. Patient was also presented 1/2 tsp of puree, mechanical soft and regular without incident. Good swallow onset and oral clearing noted with all consistencies. Patient is recommended for regular diet consistency and thin liquids. Patient's recommendations were provided to his nurse. Patient does not require further ST services at this time. Barriers to Learning Patient's medical status due to drug usage. Speech-Plan Patient/Family Goals Patient/Family Goals: Patient plans on returning to his home upon discharge. Treatment Plan Speech Therapy Treatment Plan: Discontinue ST Treatment Duration: Dec 09, 2019 Frequency: 1 time per week Estimated Hrs Per Day: .25 hour per day Rehab Potential: Guarded Barriers to Learning: Patient's medical status due to drug usage. Pt/Family Agrees to Plan: Yes Safety Risks/Education Teaching Recipient: Patient Teaching Methods: Discussion Response to Teaching: Verbalize Understanding, Reinforcement Needed Education Topics Provided: Safety of oral intake and diet level. Time Speech Therapy Time In: 10:00 Speech Therapy Time Out: 10:15 Total Billed Time: 15 Billed Treatment Time Brandon KARON Terry Dec 09, 2019 10:30
--- NOTE | 2019-12-09 10:39 | Progress Note - Cardiology ---
Cardiology SOAP Progress Note Subjective: Does not report cp or palp or syncope or shortness of breath He asked me why I thought he was "high." I explained that I had not said anything to suggest that. He went on to explain that the reason he came in was that he was short of breath because of asthma Does not currently report symptoms Objective: I&O/Vital Signs 12/08/19 12/09/19 12/09/19 12/09/19 23:00 00:00 00:00 00:00 Temp 38.2 Pulse 101 96 Resp 20 30 B/P (MAP) 124/82 (96) 122/89 (100) Pulse Ox 98 96 97 O2 Delivery Vapotherm Vapotherm Vapotherm O2 Flow Rate 20.00 20.00 20.00 30.00 30.00 FiO2 30 12/09/19 12/09/19 12/09/19 12/09/19 00:49 01:00 01:00 01:56 Pulse 94 92 94 Resp 21 B/P (MAP) 125/89 126/83 (97) Pulse Ox 96 O2 Delivery Vapotherm Vapotherm O2 Flow Rate 20.00 21.00 30.00 30.00 12/09/19 12/09/19 12/09/19 12/09/19 02:00 02:00 02:25 03:00 Temp 36.4 Pulse 93 88 Resp 19 21 B/P (MAP) 123/87 (99) 120/86 (97) Pulse Ox 98 98 92 O2 Delivery Vapotherm Vapotherm Vapotherm O2 Flow Rate 21.00 20.00 21.00 30.00 30.00 FiO2 21 12/09/19 12/09/19 12/09/19 12/09/19 04:00 04:00 05:00 05:35 Pulse 94 89 Resp 31 19 B/P (MAP) 133/98 (110) 150/109 (123) Pulse Ox 93 96 97 O2 Delivery Vapotherm Vapotherm Vapotherm Room Air O2 Flow Rate 21.00 20.00 21.00 30.00 30.00 FiO2 21 12/09/19 12/09/19 12/09/19 12/09/19 05:49 06:00 06:46 06:47 Pulse 104 114 Resp 15 B/P (MAP) 116/82 (93) Pulse Ox 95 O2 Delivery Nasal Cannula Nasal Cannula Nasal Cannula O2 Flow Rate 1.00 1.00 3.00 12/09/19 12/09/19 12/09/19 12/09/19 06:48 07:00 07:45 07:52 Pulse 123 124 Resp 28 B/P (MAP) 176/123 (140) 181/130 (147) Pulse Ox 92 94 94 100 O2 Delivery Nasal Cannula Nasal Cannula Nasal Cannula Nasal Cannula O2 Flow Rate 3.00 3.00 3.00 3.00 12/09/19 12/09/19 12/09/19 12/09/19 07:52 08:42 09:58 10:22 Temp 37.8 39.4 B/P (MAP) 157/107 (124) Pulse Ox 92 O2 Delivery Room Air Room Air 12/09/19 00:00 Intake Total 840 ml Output Total 4100 ml Balance -3260 ml Weight (Pounds): 220 Weight (Calculated Kilograms): 99.947847 Constitutional: appears stated age, well-developed, well-nourished, other (mildly agitated but appears oriented) Respiratory: chest is bilaterally symmetric, other (good bilat air entry, a few coarse basal crackles) Cardiovascular: regular rate-rhythm, S1 and S2 Gastrointestional: No tender; soft, audible bowel sounds Extremities: other (mild to mod swelling upper and lower extremities) Neurologic/Psychiatric: other (moves all limbs equally ) Skin: warm/dry; No rash, No ulcerations; other (abrasions to face) Results/Procedures: Labs Laboratory Tests 12/09/19 03:08: Sodium Level 139, Potassium Level 4.2, Chloride Level 104, Carbon Dioxide Level 24, Anion Gap 11, Blood Urea Nitrogen 17, Creatinine 0.98, Estimat Glomerular Filtration Rate > 60, BUN/Creatinine Ratio 17, Glucose Level 110H, Calcium Level 9.6, Phosphorus Level 3.5, Magnesium Level 2.4, Total Creatine Kinase 513H, Triglycerides Level 155H 12/09/19 03:25: White Blood Count 14.5H, Red Blood Count 4.30L, Hemoglobin 11.9L, Hematocrit 35L , Mean Corpuscular Volume 82, Mean Corpuscular Hemoglobin 28, Mean Corpuscular Hemoglobin Concent 34, Red Cell Distribution Width 13.8, Platelet Count 202, Mean Platelet Volume 10.8H, Neutrophils (%) (Auto) 78H, Lymphocytes (%) (Auto) 10L, Monocytes (%) (Auto) 10, Eosinophils (%) (Auto) 2, Basophils (%) (Auto) 0, Neutrophils # (Auto) 11.3H, Lymphocytes # (Auto) 1.4, Monocytes # (Auto) 1.4H, Eosinophils # (Auto) 0.3, Basophils # (Auto) 0.0 Microbiology 12/08/19 Gram Stain - Final, Resulted 12/08/19 Sputum Culture - Preliminary, Resulted Staphylococcus aureus 12/07/19 Blood Culture - Preliminary, Resulted No growth 12/04/19 Urine Culture - Final, Complete NO GROWTH A/P: Assessment: Sinus tach (after extubation) likely due a noncardiac source Hypertension ST elevation on EKG are consistent with early repolarization pattern in a young male. Negative serial troponin. Drug overdose - management per Medical and ICU team Extubated on December 08, 2019 Severe cardiomyopathy. Echocardiogram done 12/04/2019 shows an LVEF of 25-30% (likely nonischemic cardiomyopathy). Pneumonia - management per Medical services Rhabdomyolysis, improving CK levels. Plan: Continue IV enalapril and BB, titrate doses up as tolerated, switch to p.o. when feasible Give IV diuretics Monitor lab Replace electrolytes as indicated MARY BROWNLEE MD FACP FAC CCDS Dec 09, 2019 10:39
--- NOTE | 2019-12-09 10:51 | NUR ---
DR. BROWNLEE CALLED REGARDING PT'S BLOOD PRESSURE 173/108
[2019-12-09] MEDS ORDERED: meTOprolol SUCCINATE 100 MG (TOPROL XL) TAB PO ONE (11:15)
[2019-12-09] MEDS ORDERED: lisINopril 20 MG (PRINIVIL) TABLET PO ONE (11:15)
--- NOTE | 2019-12-09 12:08 | Progress Note - Hospitalist ---
Subjective HPI/CC On Admission Date Seen by Provider: Dec 09, 2019 Time Seen by Provider: 08:20 Pt is a 34yoCM who presented to the ER due to acute psychosis. He is currently intubated and sedated and unable to provide any history. All history obtained from the records. Apparently police were called due to pt acting erratically. He has been smoking 'wet' (cigarettes dipped in formaldehyde) for the past two days and became increasingly erratic and aggressive so his friends called the police. He was outside of the house beating his head on the sidewalk and yelling and screaming. He was given 2mg of Ativan by EMS which helped to calm the patient for a short period of time. Unfortunately this was short lived and he became more agitated in the ER. He at first calmed with verbal direction but this was not effective nursing home. requiring 500mg of Ketamine, 2mg Ativan x2, and 20mg of Geodon. Poison Control was contacted and believed this to be more consistent with synthetic marijuana intoxication. They recommended admission and checking CK. Unfortunately he did require intubation for airway protection. Subjective/Events-last exam He has been having fevers. He denies any shortness of breath. He denies any cough. He is on his bedside commode. He reports urethral discharge. He denies any dysuria. Objective Exam Vital Signs Vital Signs Date Time Temp Pulse Resp B/P (MAP) Pulse Ox O2 Delivery O2 Flow Rate FiO2 12/09/19 11:06 37.6 12/09/19 10:46 173/108 (129) 12/09/19 10:22 92 Room Air 12/09/19 09:30 130 19 12/09/19 07:52 3.00 12/09/19 04:00 21 Capillary Refill : Less Than 3 SecondsLess Than 3 Seconds General Appearance: No Apparent Distress, WD/WN Respiratory: Lungs Clear, Normal Breath Sounds, No Respiratory Distress Cardiovascular: No Edema, No Murmur, Tachycardia (Regular rhythm) Gastrointestinal: Normal Bowel Sounds, Non Tender, Soft Extremity: Normal Inspection, Non Tender, No Pedal Edema Neurologic/Psychiatric: Alert, Normal Mood/Affect, Motor Weakness Skin: Normal Color, Warm/Dry Results/Procedures Lab Laboratory Tests 12/09/19 03:08 12/09/19 03:25 Patient resulted labs reviewed. Imaging: Reviewed Imaging Report Assessment/Plan Assessment and Plan Assess & Plan/Chief Complaint Acute Respiratory Failure Pneumonia Extubated 12/07 Sputum culture growing staph aureus, preliminarily MSSA Transition to Ancef Acute Psychosis Polysubstance abuse Continue Risperdal Urethritis IM Rocephin and oral azithromycin once Weakness PT/OT DVT prophylaxis: Lovenox Hypokalemia, resolved [place], resolved Rhabdomyolysis, resolved Diagnosis/Problems Diagnosis/Problems (1) Respiratory failure Status: Acute Qualifiers: Chronicity: acute Respiratory failure complication: hypoxia and hypercapnia Qualified Codes: J96.01 - Acute respiratory failure with hypoxia; J96.02 - Acute respiratory failure with hypercapnia (2) Acute psychosis Status: Acute (3) Illicit drug use Status: Acute (4) Rhabdomyolysis Status: Acute Qualifiers: Rhabdomyolysis type: non-traumatic Qualified Codes: M62.82 - Rhabdomyolysis (5) CAR[place]INA (acute kidney injury) Status: Resolved Resolution Date/Time: 12/07/19 @ 13:14 (6) Pneumonia Status: Acute (7) Urethritis Status: Acute Clinical Quality Measures DVT/VTE Risk/Contraindication: Risk Factor Score Per Nursin RFS Level Per Nursing on Admit: 4+=Very High HERMILA DUMONT MD Dec 09, 2019 12:08
[2019-12-09] MEDS ORDERED: LIDOCAINE 1% INJ 20 ML 20 ML VIAL INJ ONE (12:15)
[2019-12-09] MEDS ORDERED: AZITHROMYCIN 250 MG TAB (ZITHROMAX) PO ONE (12:15)
[2019-12-09] MEDS ORDERED: cefTRIAXone 250 MG/ML vial (IM ONLY) IM ONE (12:15)
[2019-12-09] MEDS ORDERED: lisINopril 20 MG (PRINIVIL) TABLET PO NR (12:31)
[2019-12-09] MEDS ORDERED: meTOprolol SUCCINATE 100 MG (TOPROL XL) TAB PO NR (12:33)
--- NOTE | 2019-12-09 15:36 | NUR ---
CM/SS follow up. CM/SS visited with the patient. He was in bed with sitter at bed side. The patient appeared to have difficulty tracking with a conversation and frequently changed subjects. CM/SS attempted to get a history from the patient but was unsuccessful. The patient believed he was at home and asked this sw "Did you follow me here?" This sw attempted to re-orient him and informed him he was at the [facility] in [place] and this sw was an employee. The patient verbalized understanding but quickly shifted to conversation. The patient stated he has been to a inpatient psych unit two different times and they were helpful; however, he just wants to go home. During the conversation, the patient would often look behind this sw and ask who was there. CM/SS and sitter informed patient that no one else was present in the room. When the patient noticed the sitter to the side of the bed he stated "please don't kill me". CM/SS contacted the patient's mother Leydi to give an update on the visit. She asked if the patient still felt people were after him. CM/SS informed her that he was. CM/SS discussed that patient was not medically cleared at this time to have behavioral health screener come to assess patient. Leydi verbalized understanding. CM/SS spoke with the physician and the patient's primary care nurse to inform them that they could call [facility] this weekend if he became cleared. CM/SS left a message for the patient's nurse for shift change. The patient's mother did request that I call Flori from [employer]. CM/SS left a message with call back number. CM/SS will continue to follow.
[2019-12-09] MEDS: ceFAZolin 2 GM IV Premixed 50 ML IV SCH (17:29)
[2019-12-09] MEDS: ENOXAPARIN 40 MG/0.4 ML (LOVENOX) SYR SC SCH (20:37)
[2019-12-10] VITALS (7 sets, daily range): BP systolic 121–196; BP diastolic 83–128
[2019-12-10] MEDS: LABETALOL HCL 20 MG/4 ML VIAL IV SCH ×4 (00:16→17:26)
[2019-12-10] MEDS: HALOPERIDOL 5 MG/ML (HALDOL) VIAL IV PRN (00:17)
--- NOTE | 2019-12-10 01:00 | NUR ---
PT'S ERRATIC CONVERSATIONS CONTINUE. PCT AT BEDSIDE. PT STATES, "I FUCKIN LOVE YOU AND KARINE AND THATS FACTS ON BLOOD. YALL BE HELPING ME AND SHIT, BUT YOU NEED TO UNDERSTAND I AM A MOTHA FUCKING KINGPIN MP. I GOT MY FUCKIN COINS IN CHECK. IM GONNA KILL THAT NIGGA SUSHANT SHE BE FUCKING WITH THE WRONG NIGGA, YA FEEL ME? AINT NOBODY GONNA FUCK WITH THIS NIGGA AND THATS FACTS. ON BLOOD." THIS RN AND PCT ATTEMPT TO CALMLY AND VERBALLY REDIRECT PT'S CONVERSATION WITHOUT SUCCESS.
[2019-12-10] MEDS: RT-ALBUTEROL/IPRATROPIUM 3 ML (DUONEB) VIAL INH SCH ×7 (02:11→23:49)
[2019-12-10] MEDS: ceFAZolin 2 GM IV Premixed 50 ML IV SCH ×3 (02:15→17:29)
[2019-12-10 03:29] LABS: BASOPHILS % (AUTO) 0 % (0-10); EOSINOPHILS # (AUTO) 0.1 10^3/uL (0.0-0.3); EOSINOPHILS % (AUTO) 0 % (0-10); HEMATOCRIT 35 % (40-54); HEMOGLOBIN 11.9 G/DL (13.3-17.7); LYMPHOCYTES # (AUTO) 1.6 X 10^3 (1.0-4.0); LYMPHOCYTES % (AUTO) 8 % (12-44); MEAN CORPUSCULAR HEMOGLOBIN 28 PG (25-34); MEAN CORPUSCULAR HGB CONC 34 G/DL (32-36); MEAN CORPUSCULAR VOLUME 82 FL (80-99); MEAN PLATELET VOLUME 9.6 FL (7.4-10.4); MONOCYTES # (AUTO) 1.3 X 10^3 (0.0-1.0); MONOCYTES % (AUTO) 7 % (0-12); NEUTROPHILS # (AUTO) 17.1 X 10^3 (1.8-7.8); NEUTROPHILS % (AUTO) 85 % (42-75); PLATELET COUNT 215 10^3/uL (130-400); RED CELL DISTRIBUTION WIDTH 14.3 % (10.0-14.5); WHITE BLOOD COUNT 20.1 10^3/uL (4.3-11.0)
[2019-12-10 03:55] LABS: CHLORIDE 104 MMOL/L (98-107); POTASSIUM 4.6 MMOL/L (3.6-5.0); SODIUM 137 MMOL/L (135-145)
[2019-12-10 03:56] LABS: CALCIUM 10.3 MG/DL (8.5-10.1)
[2019-12-10 03:57] LABS: GLUCOSE 142 MG/DL (70-105)
[2019-12-10 03:58] LABS: CARBON DIOXIDE 18 MMOL/L (21-32)
[2019-12-10 04:00] LABS: PHOSPHORUS 3.1 MG/DL (2.3-4.7)
[2019-12-10 04:01] LABS: BUN/CREATININE RATIO 25; CREATININE SERUM 0.89 MG/DL (0.60-1.30); GFR ESTIMATED > 60
[2019-12-10 04:03] LABS: MAGNESIUM 2.6 MG/DL (1.6-2.4)
[2019-12-10 04:04] LABS: CREATINE KINASE 523 U/L (30-200)
[2019-12-10] MEDS: POTASSIUM CL 10MEQ/50ML IVPB 50 ML IV SCH (06:11)
[2019-12-10] MEDS: MAGNESIUM 1 GM/100 ML IVPB 100 ML IV SCH (06:11)
[2019-12-10] MEDS: KCL 20 MEQ TAB (K-DUR) PO SCH (06:11)
[2019-12-10] MEDS: risperiDONE 2 MG (RisperDAL) TAB PO SCH ×2 (08:31→22:17)
[2019-12-10] MEDS: meTOprolol SUCCINATE 100 MG (TOPROL XL) TAB PO SCH (08:32)
[2019-12-10] MEDS: PANTOPRAZOLE 40 MG (PROTONIX) VIAL IV SCH (08:33)
[2019-12-10] MEDS: lisINopril 20 MG (PRINIVIL) TABLET PO SCH (08:33)
[2019-12-10] MEDS ORDERED: meTOprolol SUCCINATE 100 MG (TOPROL XL) TAB PO SCH (09:00)
[2019-12-10] MEDS ORDERED: lisINopril 20 MG (PRINIVIL) TABLET PO SCH (09:00)
--- NOTE | 2019-12-10 12:36 | Physical Therapy Daily Note ---
PT Daily Note-Current Subjective Pt agreeable with continual encouragement to participate. Pt easily distracted, wanting to tell his story. Pt re-directed throughout to stay on task. Pt compliant with this RELIGION PROFESSOR with continual encouragement. Transfers SCALE: Activities may be completed with or without assistive devices. 4-Oyvhkiiomc-dzzsudr completes the activity by him/herself with no assistance from a helper. 5-Set-up or Clean-up Assistance-helper sets up or cleans up; patient completes activity. [place] assists only prior to or following the activity. 4-Supervision or Touching Assistance-helper provides verbal cues and/or touching/steadying and/or contact guard assistance as patient completes activity. Assistance may be provided throughout the activity or intermittently. 3-Partial/Moderate Assistance-helper does LESS THAN HALF the effort. [place] lifts, holds or supports trunk or limbs, but provides less than half the effort. 2-Substantial/Maximal Assistance-helper does MORE THAN HALF the effort. [place] lifts or holds trunk or limbs and provides more than half the effort. 4-Lsycehtfb-qdnytn does ALL the effort. Patient does none of the effort to complete the activity. Or, the assistance of 2 or more helpers is required for the patient to complete the activity. If activity was not attempted, code reason: 7-Patient Refused. 9-Not Applicable-not attempted and the patient did not perform the activity before the current illness, exacerbation or injury. 10-Not Attempted due to Environmental Limitations-(lack of equipment, weather restraints, etc.). 88-Not Attempted due to Medical Conditions or Safety Concerns. Weight Bearing Right Lower Extremity: Right Weight Bearing/Tolerated Left Lower Extremity: Left Weight Bearing/Tolerated Treatments Pt seen for strengthening in bed. Pt performed (B) LE AP, heel slide, SAQ, hip abd and SLR x 20-43 reps each. Rest breaks as needed. Assessment Current Status: Fair Progress Pt completed ther ex with max vc's required to stay calm and on task. Pt easily emotional. PT Care Home Goals Financial Services Technician Goals PT Care Home Goals Time Frame: Dec 16, 2019 Roll Left & Right (QC): 3 Sit to Lying (QC): 3 Lying-Sitting on Side/Bed(QC): 3 Sit to Stand (QC): 3 Chair/Cwo-jn-Gufwt Xfer(QC): 3 Walk 10 feet (QC): 3 PT Plan Treatment/Plan Treatment Plan: Continue Plan of Care Treatment Plan: Bed Mobility, Education, Functional Activity Anila, Functional Strength, Gait, Safety, Therapeutic Exercise, Transfers Treatment Duration: Dec 16, 2019 Frequency: 6 times per week Estimated Hrs Per Day: .25 hour per day Patient and/or Family Agrees t: Yes Time/GCodes Time In: 1145 Time Out: 1225 Total Billed Treatment Time: 40 Total Billed Treatment 1, ther ex 40min SEVERIANO NEWBERRY CPTA Dec 10, 2019 12:36
[2019-12-10] MEDS: LACTATED RINGERS 1,000 ML IV SCH (12:38)
--- NOTE | 2019-12-10 13:02 | Progress Note - Hospitalist ---
Subjective HPI/CC On Admission Date Seen by Provider: Dec 10, 2019 Time Seen by Provider: 10:05 Pt is a 34yoCM who presented to the ER due to acute psychosis. He is currently intubated and sedated and unable to provide any history. All history obtained from the records. Apparently police were called due to pt acting erratically. He has been smoking 'wet' (cigarettes dipped in formaldehyde) for the past two days and became increasingly erratic and aggressive so his friends called the police. He was outside of the house beating his head on the sidewalk and yelling and screaming. He was given 2mg of Ativan by EMS which helped to calm the patient for a short period of time. Unfortunately this was short lived and he became more agitated in the ER. He at first calmed with verbal direction but this was not effective detention. requiring 500mg of Ketamine, 2mg Ativan x2, and 20mg of Geodon. Poison Control was contacted and believed this to be more consistent with synthetic marijuana intoxication. They recommended admission and checking CK. Unfortunately he did require intubation for airway protection. Subjective/Events-last exam He is sitting at his bedside commode. He seems to be in better spirits today. He reports having a cough and sputum production. He denies any shortness of breath. He denies any fever. He denies any abdominal pain, nausea, or vomiting. He denies any chest pain. He says his legs feel weak. Objective Exam Vital Signs Vital Signs Date Time Temp Pulse Resp B/P (MAP) Pulse Ox O2 Delivery O2 Flow Rate FiO2 12/10/19 12:00 35.2 95 20 121/83 (96) 97 Room Air 12/10/19 10:19 3.00 12/09/19 04:00 21 Capillary Refill : Less Than 3 SecondsLess Than 3 Seconds General Appearance: No Apparent Distress, WD/WN Respiratory: Lungs Clear, Normal Breath Sounds, No Respiratory Distress Cardiovascular: Regular Rate, Rhythm, No Edema, No Murmur Gastrointestinal: Normal Bowel Sounds, Non Tender, Soft Extremity: Normal Inspection, Non Tender, No Pedal Edema Neurologic/Psychiatric: Alert, Motor Weakness Skin: Normal Color, Warm/Dry Results/Procedures Lab Laboratory Tests 12/10/19 02:30 Patient resulted labs reviewed. Imaging: Reviewed Imaging Report Assessment/Plan Assessment and Plan Assess & Plan/Chief Complaint Acute Respiratory Failure Pneumonia Leukocytosis Metabolic acidosis Extubated 12/07 Sputum culture growing staph aureus, preliminarily MSSA Continue IV fluids Continue Ancef Acute Psychosis Polysubstance abuse Continue Risperdal Urethritis Received Rocephin and azithromycin Weakness PT/OT DVT prophylaxis: Lovenox Hypokalemia, resolved [place], resolved Rhabdomyolysis, resolved Diagnosis/Problems Diagnosis/Problems (1) Respiratory failure Status: Acute Qualifiers: Chronicity: acute Respiratory failure complication: hypoxia and hypercapnia Qualified Codes: J96.01 - Acute respiratory failure with hypoxia; J96.02 - Acute respiratory failure with hypercapnia (2) Acute psychosis Status: Acute (3) Illicit drug use Status: Acute (4) Rhabdomyolysis Status: Acute Qualifiers: Rhabdomyolysis type: non-traumatic Qualified Codes: M62.82 - Rhabdomyolysis (5) [place] (acute kidney injury) Status: Resolved Resolution Date/Time: 12/07/19 @ 13:14 (6) Pneumonia Status: Acute Qualifiers: Pneumonia type: due to methicillin-sensitive Staphylococcus aureus (MSSA) Laterality: bilateral Lung location: unspecified part of lung Qualified Codes: J15.211 - Pneumonia due to methicillin susceptible Staphylococcus aureus (7) Urethritis Status: Acute Clinical Quality Measures DVT/VTE Risk/Contraindication: Risk Factor Score Per Nursin RFS Level Per Nursing on Admit: 4+=Very High HERMILA DUMONT MD Dec 10, 2019 13:02
--- NOTE | 2019-12-10 14:14 | Progress Note - Cardiology ---
Cardiology SOAP Progress Note Subjective: Denies cp or palp or syncope Notes improvement of shortness of breath Objective: I&O/Vital Signs 12/10/19 12/10/19 12/10/19 12/10/19 02:11 03:47 06:51 07:00 Temp 36.2 Pulse 107 94 Resp 17 B/P (MAP) 150/97 (114) Pulse Ox 85 97 95 O2 Delivery Room Air Room Air Nasal Cannula O2 Flow Rate 3.00 12/10/19 12/10/19 12/10/19 12/10/19 08:00 09:00 10:19 12:00 Temp 36.0 35.2 Pulse 98 95 Resp 20 20 B/P (MAP) 196/103 (134) 121/83 (96) Pulse Ox 94 93 93 97 O2 Delivery Room Air Nasal Cannula Nasal Cannula Room Air O2 Flow Rate 3.00 3.00 12/10/19 13:05 Pulse 106 12/10/19 00:00 Intake Total 1320 ml Output Total 1825 ml Balance -505 ml Weight (Pounds): 220 Weight (Calculated Kilograms): 99.513310 Constitutional: appears stated age, well-developed, well-nourished, other (Mildly anxious, agitated and restless, as before. Appear oriented to person, place, but not clearly to time. Tends to stray from subject from time to time) Respiratory: chest is bilaterally symmetric, crackles (coarse, diminished throughout) Cardiovascular: regular rate-rhythm, S1 and S2 Gastrointestional: No tender; soft, audible bowel sounds Extremities: other (mild to mod swelling upper and lower extremities) Neurologic/Psychiatric: other (moves all limbs equally, see above for mental status exam) Skin: warm/dry; No rash, No ulcerations; other (abrasions to face) Results/Procedures: Labs Laboratory Tests 12/10/19 02:30: White Blood Count 20.1H, Red Blood Count 4.32L, Hemoglobin 11.9L, Hematocrit 35L , Mean Corpuscular Volume 82, Mean Corpuscular Hemoglobin 28, Mean Corpuscular Hemoglobin Concent 34, Red Cell Distribution Width 14.3, Platelet Count 215, Mean Platelet Volume 9.6, Neutrophils (%) (Auto) 85H, Lymphocytes (%) (Auto) 8L, Monocytes (%) (Auto) 7, Eosinophils (%) (Auto) 0, Basophils (%) (Auto) 0, Neutrophils # (Auto) 17.1H, Lymphocytes # (Auto) 1.6, Monocytes # (Auto) 1.3H, Eosinophils # (Auto) 0.1, Basophils # (Auto) 0.0, Sodium Level 137, Potassium Level 4.6, Chloride Level 104, Carbon Dioxide Level 18L, Anion Gap 15H, Blood Urea Nitrogen 22H, Creatinine 0.89, Estimat Glomerular Filtration Rate > 60, BUN/Creatinine Ratio 25, Glucose Level 142H, Calcium Level 10.3H, Phosphorus Level 3.1, Magnesium Level 2.6H, Total Creatine Kinase 523H Microbiology 12/08/19 Gram Stain - Final, Resulted 12/08/19 Sputum Culture - Preliminary, Resulted Staphylococcus aureus Corynebacterium striatum 12/07/19 Blood Culture - Preliminary, Resulted No growth 12/04/19 Urine Culture - Final, Complete NO GROWTH Laboratory Tests 12/09/19 03:08 12/09/19 03:25 12/10/19 02:30 A/P: Assessment: Leucocytosis of undetermined etiology, being managed by the Hospitalist service Sinus tach after being extubated, improving Hypertension, improving ST elevation on EKG are consistent with early repolarization pattern in a young male. Negative serial troponin. Drug overdose - managed by the Hospitalist svce Severe cardiomyopathy. Echocardiogram done 12/04/2019 shows an LVEF of 25-30% (likely nonischemic cardiomyopathy). Pneumonia - management per Medical services Rhabdomyolysis, improving CK levels. Plan: Treat for noncardiac source of sinus tach Continue bb and HALEY-inhib Monitor labs MARY BROWNLEE MD FACP [facility] Dec 10, 2019 14:14
--- NOTE | 2019-12-10 16:25 | NUR ---
PT has been on 3 L NC upon shift, not RA,
--- NOTE | 2019-12-10 20:05 | NUR ---
WHILE PT WAS UP TO THE SHOWER THIS EVENING HIS EMOTIONS SEEMED TO SWITCH FROM CONTENT TO AGITATED WITHIN MINUTES OF EACHOTHER. ONE MINUTE THE PT WILL STATE, "I FUCKIN LOVE YALL. YALL BEEN SAVING MY LIFE AND SHIT. FACTS. ON BLOOD." THE NEXT MINUTE PT WILL START TALKING ABOUT BEING A "BLOOD GANG MEMBER." PT ALSO STATES, "IM A [place]IN KINGPIN. I SLING. THATS FACTS. ON BLOOD." THIS RN AND PCT AT BEDSIDE ATTEMPT TO REORIENT AND ARE SUCCESSFUL, HOWEVER, PT EASILY SLIPS BACK INTO A SUSPICIOUS MIND STATE WITHIN MINUTES. PT IS ORIENTED. HE CAN TELL THE RN HIS NAME, WHERE HE'S FROM, THAT HE IS HERE BECAUSE HE OVERDOSED ON "WET" AND THAT IT IS NOVEMBER IN 2019. PT WILL START A CONVERSATION ABOUT ONE TOPIC THEN MOVE TO THE NEXT BEFORE COMPLETING HIS THOUGHTS. HE SEEMS TO KEEP THIS CYCLE GOING UNTIL HE IS AGITATED AND BELIEVES THAT "ALL THESE MOTHER FUCKERS AROUND HERE GONNA TRY SOME SHIT."
[2019-12-10] MEDS: ENOXAPARIN 40 MG/0.4 ML (LOVENOX) SYR SC SCH (22:17)
[2019-12-11] MEDS: LABETALOL HCL 20 MG/4 ML VIAL IV SCH ×4 (01:20→18:18)
[2019-12-11] MEDS: ceFAZolin 2 GM IV Premixed 50 ML IV SCH ×3 (01:26→18:18)
[2019-12-11] MEDS: RT-ALBUTEROL/IPRATROPIUM 3 ML (DUONEB) VIAL INH SCH ×6 (02:21→22:30)
[2019-12-11 04:00] VITALS: BP 160/96
[2019-12-11 05:30] LABS: BASOPHILS % (AUTO) 0 % (0-10); EOSINOPHILS # (AUTO) 0.3 10^3/uL (0.0-0.3); EOSINOPHILS % (AUTO) 2 % (0-10); HEMATOCRIT 37 % (40-54); LYMPHOCYTES # (AUTO) 2.7 X 10^3 (1.0-4.0); LYMPHOCYTES % (AUTO) 15 % (12-44); MEAN CORPUSCULAR HEMOGLOBIN 27 PG (25-34); MEAN CORPUSCULAR HGB CONC 33 G/DL (32-36); MEAN CORPUSCULAR VOLUME 83 FL (80-99); MEAN PLATELET VOLUME 10.8 FL (7.4-10.4); MONOCYTES # (AUTO) 2.3 X 10^3 (0.0-1.0); MONOCYTES % (AUTO) 13 % (0-12); NEUTROPHILS % (AUTO) 71 % (42-75); PLATELET COUNT 249 10^3/uL (130-400); RED CELL DISTRIBUTION WIDTH 14.3 % (10.0-14.5); WHITE BLOOD COUNT 18.3 10^3/uL (4.3-11.0)
[2019-12-11 05:44] LABS: CHLORIDE 106 MMOL/L (98-107); POTASSIUM 3.6 MMOL/L (3.6-5.0); SODIUM 141 MMOL/L (135-145)
[2019-12-11 05:45] LABS: CALCIUM 9.5 MG/DL (8.5-10.1)
[2019-12-11 05:46] LABS: GLUCOSE 113 MG/DL (70-105); TRIGLYCERIDES 268 MG/DL (<150)
[2019-12-11 05:47] LABS: CARBON DIOXIDE 20 MMOL/L (21-32)
[2019-12-11 05:49] LABS: PHOSPHORUS 2.7 MG/DL (2.3-4.7)
[2019-12-11 05:50] LABS: BUN/CREATININE RATIO 27; CREATININE SERUM 0.86 MG/DL (0.60-1.30); GFR ESTIMATED > 60
[2019-12-11 05:52] LABS: MAGNESIUM 2.2 MG/DL (1.6-2.4)
[2019-12-11 05:53] LABS: CREATINE KINASE 435 U/L (30-200)
[2019-12-11] MEDS: POTASSIUM CL 10MEQ/50ML IVPB 50 ML IV SCH (06:15)
[2019-12-11] MEDS: MAGNESIUM 1 GM/100 ML IVPB 100 ML IV SCH (06:15)
[2019-12-11] MEDS: KCL 20 MEQ TAB (K-DUR) PO SCH (06:16)
[2019-12-11 08:00] VITALS: BP 167/113
[2019-12-11] MEDS: lisINopril 20 MG (PRINIVIL) TABLET PO SCH (08:24)
[2019-12-11] MEDS: risperiDONE 2 MG (RisperDAL) TAB PO SCH ×3 (08:24→21:57)
[2019-12-11] MEDS: meTOprolol SUCCINATE 100 MG (TOPROL XL) TAB PO SCH (08:24)
[2019-12-11] MEDS: PANTOPRAZOLE 40 MG (PROTONIX) VIAL IV SCH (08:24)
[2019-12-11] MEDS: LACTATED RINGERS 1,000 ML IV SCH (09:11)
[2019-12-11] MEDS ORDERED: SPIRONOLACTONE 25 MG (ALDACTONE) TAB PO ONE (10:00)
[2019-12-11 12:00] VITALS: BP 133/93
--- NOTE | 2019-12-11 13:18 | Progress Note - Hospitalist ---
Subjective HPI/CC On Admission Date Seen by Provider: Dec 11, 2019 Time Seen by Provider: 10:35 Pt is a 34yoCM who presented to the ER due to acute psychosis. He is currently intubated and sedated and unable to provide any history. All history obtained from the records. Apparently police were called due to pt acting erratically. He has been smoking 'wet' (cigarettes dipped in formaldehyde) for the past two days and became increasingly erratic and aggressive so his friends called the police. He was outside of the house beating his head on the sidewalk and yelling and screaming. He was given 2mg of Ativan by EMS which helped to calm the patient for a short period of time. Unfortunately this was short lived and he became more agitated in the ER. He at first calmed with verbal direction but this was not effective [facility]. requiring 500mg of Ketamine, 2mg Ativan x2, and 20mg of Geodon. Poison Control was contacted and believed this to be more consistent with synthetic marijuana intoxication. They recommended admission and checking CK. Unfortunately he did require intubation for airway protection. Subjective/Events-last exam He reports having cough and sputum production. His speech is tangential and repeatedly veers off topic. It is difficult to have a meaningful conversation with him. Objective Exam Vital Signs Vital Signs Date Time Temp Pulse Resp B/P (MAP) Pulse Ox O2 Delivery O2 Flow Rate FiO2 12/11/19 12:32 97 12/11/19 10:43 91 Room Air 12/11/19 06:12 3.00 12/11/19 04:00 36.0 19 160/96 (117) 12/09/19 04:00 21 Capillary Refill : Less Than 3 SecondsLess Than 3 Seconds General Appearance: No Apparent Distress, WD/WN, Anxious Respiratory: Lungs Clear, Normal Breath Sounds, No Respiratory Distress Cardiovascular: Regular Rate, Rhythm, No Edema, No Murmur Gastrointestinal: Normal Bowel Sounds, Non Tender, Soft Extremity: Normal Inspection, Non Tender, No Pedal Edema Neurologic/Psychiatric: Alert, Disoriented, Other (Tangential, rapid speech) Skin: Normal Color, Warm/Dry Results/Procedures Lab Laboratory Tests 12/11/19 04:56 Patient resulted labs reviewed. Imaging: Reviewed Imaging Report Assessment/Plan Assessment and Plan Assess & Plan/Chief Complaint Acute respiratory failure with hypoxia MSSA pneumonia Leukocytosis Metabolic acidosis Extubated 12/07 Sputum culture growing MSSA Continue IV fluids Continue Ancef Bipolar disorder with harriett Polysubstance abuse Continue Risperdal Add divalproex Will need psychiatric evaluation once medically clear Weakness PT/OT DVT prophylaxis: Lovenox Hypokalemia, resolved [place], resolved Rhabdomyolysis, resolved Urethritis, resolved Diagnosis/Problems Diagnosis/Problems (1) Respiratory failure Status: Acute Qualifiers: Chronicity: acute Respiratory failure complication: hypoxia and hypercapnia Qualified Codes: J96.01 - Acute respiratory failure with hypoxia; J96.02 - Acute respiratory failure with hypercapnia (2) Acute psychosis Status: Acute (3) Illicit drug use Status: Acute (4) Rhabdomyolysis Status: Resolved Qualifiers: Rhabdomyolysis type: non-traumatic Qualified Codes: M62.82 - Rhabdomyolysis Resolution Date/Time: 12/11/19 @ 13:15 (5) [place] (acute kidney injury) Status: Resolved Resolution Date/Time: 12/07/19 @ 13:14 (6) Pneumonia Status: Acute Qualifiers: Pneumonia type: due to methicillin-sensitive Staphylococcus aureus (MSSA) Laterality: bilateral Lung location: unspecified part of lung Qualified Codes: J15.211 - Pneumonia due to methicillin susceptible Staphylococcus aureus (7) Urethritis Status: Resolved Resolution Date/Time: 12/11/19 @ 13:15 (8) Bipolar disorder, manic Status: Acute Qualifiers: Current episode severity: severe Psychotic features: with psychotic features Qualified Codes: F31.2 - Bipolar disorder, current episode manic severe with psychotic features Clinical Quality Measures DVT/VTE Risk/Contraindication: Risk Factor Score Per Nursin RFS Level Per Nursing on Admit: 4+=Very High HERMILA DUMONT MD Dec 11, 2019 13:18
[2019-12-11 15:22] VITALS: BP 149/99
[2019-12-11 19:43] VITALS: BP 126/83
[2019-12-11] MEDS: DIVALPROEX EXT RELEASE 250 MG (DEPAKOTE ER) TAB PO SCH ×2 (20:40→21:56)
[2019-12-11] MEDS: ENOXAPARIN 40 MG/0.4 ML (LOVENOX) SYR SC SCH (20:40)
--- NOTE | 2019-12-11 20:50 | NUR ---
PT REFUSES TO TAKE MEDICATIONS AT THIS TIME. THIS RN ATTEMPTS TO EXPLAIN THE IMPORTANCE OF TAKING HIS MEDICATIONS. PT STATES, "IM NOT TAKING NO FUCKIN MEDS NIGGA. IM FUCKIN PISSED." THIS RN ASKS PT, "WOULD YOU LIKE TO TELL ME WHAT HAS UPSET YOU?" PT REPLIES, "YOU MOTHER FUCKER. IM TRYIN TO WATCH MY FUCKING MOVIE AND YOU JUST GONNA INTERRUPT IT. I WILL TELL YOU WHEN TO COME BACK WITH MY MEDS NIGGA." RN'S ATTEMPT TO REDIRECT PT IS UNSUCCESSFUL. PLEASE NOTE THAT THIS IS THE FIRST TIME THIS RN HAS ENTERED PT'S ROOM FOR THIS SHIFT AND THAT PT REQUESTED THAT HIS SITTER (PCT) "GET SOMEONE TO GET HIS MEDS." WILL ATTEMPT TO GIVE PT MEDS AFTER ALLOWING PT TIME TO FINISH MOVIE AND CALM DOWN.
--- NOTE | 2019-12-11 21:06 | NUR ---
PT AGITATION ESCALATING AT THIS TIME. IT IS DIFFICULT TO HOLD A CONVERSATION OR CALM PT VERBALLY. PT REPEATEDLY STATES, "I'VE KILLED NIGGAS BEFORE. I'M A MOTHA FUCKING BLOOD. A FUCKIN GANG MEMBER. YOU HEAR ME, NIGGA? I SAY ANYTHING I MARIFER MATIAS WANT AND Y'ALL CANT DO SHIT ABOUT IT CAUSE' OF CONFIDENTIALITY AND SHIT. NIGGAS DONT MESS WIT ME." THIS RN ATTEMPTS TO CALM PATIENT VERBALLY UNSUCCESSFULLY. SITTER IS NOW SITTING OUTSIDE OF THE ROOM, WATCHING PT THROUGH WINDOW D/T PT'S CONTINUOUS VULGAR COMMENTS AND THREATS TOWARD STAFF SHOULD THEY "TELL HIS FUCKIN BUISNESS" TO ANYONE. THIS RN ATTEMPTS TO REASSURE PT THAT WE TAKE CONFIDENTIALITY VERY SERIOUS HERE. PT CONTINUES TO STATE THINGS LIKE, "I DONT THINK YOU UNDERSTAND NIGGA. I'M A MUTHA FUCKING KINGPIN. I FUCKING SLING DRUGS AND CAN TAKE OUT NIGGA THAT GETS IN MY WAY." THIS RN WILL NOTIFY DIRECTOR OF SALES MARKETING AND PHYSICIAN.
--- NOTE | 2019-12-11 21:25 | NUR ---
[employer] SALES REPRESENTATIVE AND SECURITY AT PT'S DOOR PER THIS RN'S REQUEST. STAFF HAS NOT BEEN ABLE TO REDIRECT AFTER MULTIPLE ATTEMPTS. PT HAS BEEN ALLOWED TIME TO CALM WITHOUT INTERRUPTION, BUT REMAINS AGITATED AND EMOTIONAL. MAKING THREATENING, RUDE COMMENTS ONE SECOND, THEN APOLOGIZING AND CRYING THE NEXT.
[2019-12-11] MEDS: HALOPERIDOL 5 MG/ML (HALDOL) VIAL IV PRN (21:37)
[2019-12-11] MEDS: LORazepam INJ 2 MG/ML (ATIVAN) VIAL IV PRN (21:37)
--- NOTE | 2019-12-11 21:57 | NUR ---
PT MORE CALM AT THIS TIME. PRN MEDICATIONS FOR AGITATION WERE GIVEN AT 2136. PT HAS AGREED TO TAKE HIS RISPERDAL AND DEPAKOTE, BUT STILL REFUSES LOVENOX STATING, "IM ARKIN SCARED OF NEEDLES. I DONT WANT THAT SHIT."
[2019-12-11 23:39] VITALS: BP 124/67
[2019-12-12] VITALS (8 sets, daily range): BP systolic 118–144; BP diastolic 64–99
[2019-12-12] MEDS: LABETALOL HCL 20 MG/4 ML VIAL IV SCH ×2 (00:09→05:58)
[2019-12-12] MEDS: ceFAZolin 2 GM IV Premixed 50 ML IV SCH ×3 (01:56→18:03)
[2019-12-12] MEDS: RT-ALBUTEROL/IPRATROPIUM 3 ML (DUONEB) VIAL INH SCH ×6 (02:20→23:09)
[2019-12-12] MEDS: LACTATED RINGERS 1,000 ML IV SCH (05:58)
[2019-12-12 06:20] LABS: BASOPHILS # (AUTO) 0.1 10^3/uL (0.0-0.1); BASOPHILS % (AUTO) 0 % (0-10); EOSINOPHILS # (AUTO) 0.5 10^3/uL (0.0-0.3); EOSINOPHILS % (AUTO) 3 % (0-10); HEMATOCRIT 34 % (40-54); LYMPHOCYTES # (AUTO) 2.7 X 10^3 (1.0-4.0); LYMPHOCYTES % (AUTO) 14 % (12-44); MEAN CORPUSCULAR HEMOGLOBIN 27 PG (25-34); MEAN CORPUSCULAR HGB CONC 32 G/DL (32-36); MEAN CORPUSCULAR VOLUME 84 FL (80-99); MEAN PLATELET VOLUME 10.4 FL (7.4-10.4); MONOCYTES # (AUTO) 2.4 X 10^3 (0.0-1.0); MONOCYTES % (AUTO) 13 % (0-12); NEUTROPHILS # (AUTO) 13.3 X 10^3 (1.8-7.8); NEUTROPHILS % (AUTO) 70 % (42-75); PLATELET COUNT 244 10^3/uL (130-400); RED CELL DISTRIBUTION WIDTH 14.3 % (10.0-14.5)
[2019-12-12 06:33] LABS: CHLORIDE 109 MMOL/L (98-107); POTASSIUM 3.9 MMOL/L (3.6-5.0); SODIUM 141 MMOL/L (135-145)
[2019-12-12 06:34] LABS: CALCIUM 8.9 MG/DL (8.5-10.1)
[2019-12-12 06:35] LABS: GLUCOSE 102 MG/DL (70-105)
[2019-12-12 06:36] LABS: CARBON DIOXIDE 21 MMOL/L (21-32)
[2019-12-12 06:38] LABS: CREATININE SERUM 0.84 MG/DL (0.60-1.30); GFR ESTIMATED > 60
[2019-12-12 06:39] LABS: BUN/CREATININE RATIO 23
[2019-12-12 06:41] LABS: MAGNESIUM 2.2 MG/DL (1.6-2.4)
[2019-12-12] MEDS: MAGNESIUM 1 GM/100 ML IVPB 100 ML IV SCH (06:45)
[2019-12-12] MEDS: POTASSIUM CL 10MEQ/50ML IVPB 50 ML IV SCH (06:45)
[2019-12-12] MEDS: KCL 20 MEQ TAB (K-DUR) PO SCH (06:46)
[2019-12-12] MEDS: meTOprolol SUCCINATE 100 MG (TOPROL XL) TAB PO SCH (08:53)
[2019-12-12] MEDS: lisINopril 20 MG (PRINIVIL) TABLET PO SCH (08:53)
[2019-12-12] MEDS: PANTOPRAZOLE 40 MG (PROTONIX) VIAL IV SCH (08:53)
[2019-12-12] MEDS: risperiDONE 2 MG (RisperDAL) TAB PO SCH ×2 (08:53→19:40)
[2019-12-12] MEDS ORDERED: SPIRONOLACTONE 25 MG (ALDACTONE) TAB PO SCH (09:00)
--- NOTE | 2019-12-12 09:27 | Progress Note - Cardiology ---
Cardiology SOAP Progress Note Subjective: Sitting up in bed. Appropriate and cooperative. C/O chest discomfort with coughing. Reports productive cough of thick sputum. No c/o palpitations, syncope or near syncope. Objective: I&O/Vital Signs 12/12/19 12/13/19 12/13/19 12/13/19 23:55 01:13 02:24 04:01 Temp 36.8 36.9 Pulse 90 107 114 Resp 20 18 B/P (MAP) 138/78 (98) 140/83 (102) Pulse Ox 95 91 98 O2 Delivery Room Air Room Air 12/13/19 12/13/19 12/13/19 12/13/19 06:47 07:11 08:00 10:30 Temp 37.0 Pulse 106 111 Resp 18 B/P (MAP) 160/96 (117) Pulse Ox 96 100 98 O2 Delivery Room Air Room Air Room Air 12/13/19 00:00 Intake Total 800 ml Balance 800 ml Weight (Pounds): 220 Weight (Calculated Kilograms): 99.500746 Constitutional: appears stated age, well-developed, well-nourished, other (Mildly anxious, agitated and restless, as before. Appear oriented to person, place, but not clearly to time. Tends to stray from subject from time to time) Respiratory: chest is bilaterally symmetric, crackles (coarse, diminished throughout) Cardiovascular: regular rate-rhythm, S1 and S2 Gastrointestional: No tender; soft, audible bowel sounds Extremities: other (mild to mod swelling upper and lower extremities) Neurologic/Psychiatric: other (moves all limbs equally, see above for mental status exam) Skin: warm/dry; No rash, No ulcerations; other (abrasions to face) Results/Procedures: Labs Laboratory Tests 12/13/19 05:34: White Blood Count 16.7H, Red Blood Count 3.88L, Hemoglobin 10.7L, Hematocrit 33L , Mean Corpuscular Volume 85, Mean Corpuscular Hemoglobin 28, Mean Corpuscular Hemoglobin Concent 33, Red Cell Distribution Width 13.8, Platelet Count 253, Mean Platelet Volume 10.2, Neutrophils (%) (Auto) 70, Lymphocytes (%) (Auto) 18, Monocytes (%) (Auto) 9, Eosinophils (%) (Auto) 3, Basophils (%) (Auto) 0, Neutrophils # (Auto) 11.6H, Lymphocytes # (Auto) 3.1, Monocytes # (Auto) 1.6H, Eosinophils # (Auto) 0.4H, Basophils # (Auto) 0.1, Sodium Level 140, Potassium Level 3.6, Chloride Level 106, Carbon Dioxide Level 21, Anion Gap 13, Blood Urea Nitrogen 18, Creatinine 0.76, Estimat Glomerular Filtration Rate > 60, BUN/Creatinine Ratio 24, Glucose Level 105, Calcium Level 8.7, Magnesium Level 2.0 Microbiology 12/08/19 Gram Stain - Final, Complete 12/08/19 Sputum Culture - Final, Complete Staphylococcus aureus Corynebacterium striatum 12/07/19 Blood Culture - Preliminary, Resulted No growth 12/04/19 Urine Culture - Final, Complete NO GROWTH A/P: Assessment: Leucocytosis of undetermined etiology, being managed by the Hospitalist service Sinus tach after being extubated, improving Hypertension, improving ST elevation on EKG are consistent with early repolarization pattern in a young male. Negative serial troponin. Drug overdose - managed by the Hospitalist elba Severe cardiomyopathy. Echocardiogram done 12/04/2019 shows an LVEF of 25-30% (likely nonischemic cardiomyopathy). Pneumonia - management per Medical services Rhabdomyolysis, improving CK levels. Plan: Treat for noncardiac source of sinus tach Continue bb and HALEY-inhib Monitor labs CANDACE GUDINO Dec 12, 2019 09:26
--- NOTE | 2019-12-12 11:08 | NUR ---
CM/SS follow up. The patient was in bed wrapped up in his blankets. He seemed pleasant and willing to talk with this sw. He reports he is feeling okay today but believes he still has some weakness in his legs. The patient appeared much more calm and coherent during today's visit. CM/SS asked what brought him into the hospital and he knew it was psych/substance related. He verbalized it has a lot to do with depression. The patient denied suicidal ideation at this time. He reported he has multiple diagnosis and has been dealing with mental health since he was in grade school. The patient states that he has not been on his psych medications for the past 10 years. CM/SS unsure if this is correct. The patient does not currently see a mental health professional. CM/SS asked the patient if he would be willing to see someone. He stated he would. CM/SS contacted [facility] to set up patient with a mental health provider. An appointment is set up for November, at 3:30 p.m. with Román Dockery. CM/SS informed the patient of the appointment. He verbalized understanding. CM/SS informed physician and nurse of appointment. CM/SS asked the patient about substance use. He reports that when he came in he did "PCP". He stated that he "doesn't want to touch that stuff anymore". The patient reports he will not stop drinking at this time. The patient did not have any further questions or needs at this time. CM/SS will continue to follow.
--- NOTE | 2019-12-12 11:28 | Occupational Ther Daily Note ---
OT Current Status-Daily Note Subjective Pt alert, standing in bathroom. Nrsg in room also. No c/o pain. Pt did c/o feeling high because of the new medications. Mental Status/Objective Patient Orientation: Person, Time, Situation Attachments: IV ADL-Treatment Pt independent with oral care and grooming. Pt stood at sink without AE for stability. Independent with toileting transfer and toileting. Pt stated after completing oral care that his legs felt weak and was not able to complete shower. Pt c/o feeling high from the new meds. Nrsg tech in room and reported to nrsg and physician. After therapy, pt sitting in recliner with call light/phone in reach. All needs met in room. Therapy Code Descriptions/Definitions Functional [place] Measure: 0=Not Assessed/NA 4=Minimal Assistance 1=Total Assistance 5=Supervision or Setup 2=Maximal Assistance 6=Modified [place] 3=Moderate Assistance 7=Complete IndependenceSCALE: Activities may be completed with or without assistive devices. 3-Zivnucmfhn-nriuwiu completes the activity by him/herself with no assistance from a helper. 5-Set-up or Clean-up Assistance-helper sets up or cleans up; patient completes activity. [place] assists only prior to or following the activity. 4-Supervision or Touching Assistance-helper provides verbal cues and/or touchi ng/steadying and/or contact guard assistance as patient completes activity. Assistance may be provided throughout the activity or intermittently. 3-Partial/Moderate Assistance-helper does LESS THAN HALF the effort. [place] lifts, holds or supports trunk or limbs, but provides less than half the effort. 2-Substantial/Maximal Assistance-helper does MORE THAN HALF the effort. [place] lifts or holds trunk or limbs and provides more than half the effort. 5-Ywkiyahqv-mszoix does ALL the effort. Patient does none of the effort to complete the activity. Or, the assistance of 2 or more helpers is required for the patient to complete the activity. If activity was not attempted, code reason: 7-Patient Refused. 9-Not Applicable-not attempted and the patient did not perform the activity before the current illness, exacerbation or injury. 10-Not Attempted due to Environmental Limitations-(lack of equipment, weather restraints, etc.). 88-Not Attempted due to Medical Conditions or Safety Concerns. Oral Hygiene (QC): 6 Toileting Hygiene (QC): 6 Toilet Transfer (QC): 6 OT Branch Manager Trainee Goals Intermediate Goals Time Frame: Dec 23, 2019 Eating (QC): 6 Oral Hygiene (QC): 5 Toileting Hygiene (QC): 4 Shower/Bathe Self (QC): 3 Upper Body Dressing (QC): 4 Lower Body Dressing (QC): 3 On/Off Footwear (QC): 3 1=Demonstrate adherence to instructed precautions during ADL tasks. 2=Patient will verbalize/demonstrate understanding of assistive devices/modifications for ADL. 3=Patient will improve strength/tolerance for activity to enable patient to perform ADL's. OT Education/Plan Problem List/Assessment Assessment: Decreased Activ Tolerance, Impaired Cognition Discharge Recommendations Plan/Recommendations: Continue POC Treatment Plan/Plan of Care Patient would benefit from OT for education, treatment and training to promote independence in ADL's, mobility, safety and/or upper extremity function for ADL's. Plan of Care: ADL Retraining, Functional Mobility, UE Funct Exercise/Act Treatment Duration: Dec 23, 2019 Frequency: 5 times per week Estimated Hrs Per Day: .25 hour per day Rehab Potential: Guarded Time/GCodes Start Time: 10:55 Stop Time: 11:21 Total Time Billed (hr/min): 26 Billed Treatment Time 1 visit-ADL 2 (26 min) JADEN PITTMAN Dec 12, 2019 11:28
--- NOTE | 2019-12-12 12:24 | Progress Note - Cardiology ---
Cardiology SOAP Progress Note Subjective: No new symptoms Weakness present No cp or palp or syncope or shortness of breath at rest No focal weakness No n/v/d Objective: I&O/Vital Signs 12/12/19 12/12/19 12/12/19 12/12/19 01:00 02:00 03:59 07:00 Temp 36.0 Pulse 94 104 95 Resp 16 B/P (MAP) 144/99 (114) 139/86 (103) Pulse Ox 96 O2 Delivery Room Air 12/12/19 12/12/19 12/12/19 08:00 10:53 11:58 Temp 37.0 37.0 Pulse 90 108 Resp 18 20 B/P (MAP) 129/80 (96) 118/64 (82) Pulse Ox 96 94 95 O2 Delivery Nasal Cannula Room Air Room Air O2 Flow Rate 2.00 12/12/19 00:00 Intake Total 550 ml Balance 550 ml Weight (Pounds): 220 Weight (Calculated Kilograms): 99.508415 Constitutional: appears stated age, AAO x 3, well-developed, well-nourished Respiratory: chest is bilaterally symmetric, crackles (coarse, diminished throughout) Cardiovascular: regular rate-rhythm, S1 and S2 Gastrointestional: No tender; soft, audible bowel sounds Extremities: other (mild leg swelling) Neurologic/Psychiatric: other (moves all limbs equally) Skin: warm/dry; No rash, No ulcerations; other (abrasions to face) Results/Procedures: Labs Laboratory Tests 12/12/19 06:01: White Blood Count 19.0H, Red Blood Count 4.05L, Hemoglobin 11.0L, Hematocrit 34L , Mean Corpuscular Volume 84, Mean Corpuscular Hemoglobin 27, Mean Corpuscular Hemoglobin Concent 32, Red Cell Distribution Width 14.3, Platelet Count 244, Mean Platelet Volume 10.4, Neutrophils (%) (Auto) 70, Lymphocytes (%) (Auto) 14, Monocytes (%) (Auto) 13H, Eosinophils (%) (Auto) 3, Basophils (%) (Auto) 0, Neutrophils # (Auto) 13.3H, Lymphocytes # (Auto) 2.7, Monocytes # (Auto) 2.4H, Eosinophils # (Auto) 0.5H, Basophils # (Auto) 0.1, Sodium Level 141, Potassium Level 3.9, Chloride Level 109H, Carbon Dioxide Level 21, Anion Gap 11, Blood Urea Nitrogen 19H, Creatinine 0.84, Estimat Glomerular Filtration Rate > 60, BUN/Creatinine Ratio 23, Glucose Level 102, Calcium Level 8.9, Phosphorus Level 3.0, Magnesium Level 2.2 Microbiology 12/08/19 Gram Stain - Final, Complete 12/08/19 Sputum Culture - Final, Complete Staphylococcus aureus Corynebacterium striatum 12/07/19 Blood Culture - Preliminary, Resulted No growth 12/04/19 Urine Culture - Final, Complete NO GROWTH Laboratory Tests 12/11/19 04:56 12/12/19 06:01 A/P: Assessment: Leucocytosis of undetermined etiology, being managed by the Hospitalist service Sinus tach after being extubated, improving Hypertension, improving ST elevation on EKG are consistent with early repolarization pattern in a young male. Negative serial troponin. Drug overdose - managed by the Hospitalist elba Severe cardiomyopathy. Echocardiogram done 12/04/2019 shows an LVEF of 25-30% (likely nonischemic cardiomyopathy). Pneumonia - management per Medical services Rhabdomyolysis, improving CK levels. Plan: Treat for noncardiac source of sinus tach Continue bb and HALEY-inhib Monitor labs MARY BROWNLEE MD FACP [facility] Dec 12, 2019 12:24
--- NOTE | 2019-12-12 13:31 | Progress Note - Hospitalist ---
Subjective HPI/CC On Admission Date Seen by Provider: Dec 12, 2019 Time Seen by Provider: 13:21 Pt is a 34yoCM who presented to the ER due to acute psychosis. He is currently intubated and sedated and unable to provide any history. All history obtained from the records. Apparently police were called due to pt acting erratically. He has been smoking 'wet' (cigarettes dipped in formaldehyde) for the past two days and became increasingly erratic and aggressive so his friends called the police. He was outside of the house beating his head on the sidewalk and yelling and screaming. He was given 2mg of Ativan by EMS which helped to calm the patient for a short period of time. Unfortunately this was short lived and he became more agitated in the ER. He at first calmed with verbal direction but this was not effective half-way. requiring 500mg of Ketamine, 2mg Ativan x2, and 20mg of Geodon. Poison Control was contacted and believed this to be more consistent with synthetic marijuana intoxication. They recommended admission and checking CK. Unfortunately he did require intubation for airway protection. Subjective/Events-last exam Pt reports feeling much better mentally but still weak. States he was unaware he was on a vent and sedated. Discussed the repercussions of such critical illness and that weakness is to be expected. Objective Exam Vital Signs Vital Signs Date Time Temp Pulse Resp B/P (MAP) Pulse Ox O2 Delivery O2 Flow Rate FiO2 12/12/19 13:00 80 12/12/19 11:58 37.0 20 118/64 (82) 95 Room Air 12/12/19 08:00 2.00 12/09/19 04:00 21 Capillary Refill : Less Than 3 SecondsLess Than 3 Seconds General Appearance: No Apparent Distress, WD/WN Respiratory: Lungs Clear, No Respiratory Distress Cardiovascular: Regular Rate, Rhythm, No Murmur Neurologic/Psychiatric: Alert, Oriented x3 Results/Procedures Lab Laboratory Tests 12/12/19 06:01 Patient resulted labs reviewed. Imaging: Reviewed Imaging Report Assessment/Plan Assessment and Plan Assess & Plan/Chief Complaint Acute respiratory failure with hypoxia MSSA pneumonia Leukocytosis Metabolic acidosis Extubated 12/07 Sputum culture growing MSSA Continue IV fluids Continue Ancef cardiomyopathy Sinus tach - Cardiology consulted, appreciate recs - Discussed wtih Dr Tejeda, max LOVELL labetalol - Repeat echo ordered Bipolar disorder with harriett Polysubstance abuse Continue Risperdal Continue divalproex Mentation much clearer today, will likely just need outpatient services Weakness PT/OT - Consider IRF DVT prophylaxis: Lovenox Hypokalemia, resolved [place], resolved Rhabdomyolysis, resolved Urethritis, resolved Diagnosis/Problems Diagnosis/Problems (1) Acute psychosis Status: Acute (2) Respiratory failure Status: Acute Qualifiers: Chronicity: acute Respiratory failure complication: hypoxia and hypercapnia Qualified Codes: J96.01 - Acute respiratory failure with hypoxia; J96.02 - Acute respiratory failure with hypercapnia (3) Rhabdomyolysis Status: Resolved Qualifiers: Rhabdomyolysis type: non-traumatic Qualified Codes: M62.82 - Rhabdomyolysis Resolution Date/Time: 12/11/19 @ 13:15 (4) Illicit drug use Status: Acute (5) Hypokalemia Status: Acute (6) Hypotension Status: Acute Qualifiers: Hypotension type: hypotension due to drug Qualified Codes: I95.2 - Hypotension due to drugs (7) [place] (acute kidney injury) Status: Resolved Resolution Date/Time: 12/07/19 @ 13:14 (8) Transaminitis Status: Acute Clinical Quality Measures DVT/VTE Risk/Contraindication: Risk Factor Score Per Nursin RFS Level Per Nursing on Admit: 4+=Very High LEIDY ROMO MD Dec 12, 2019 13:31
--- NOTE | 2019-12-12 14:29 | Physical Therapy Daily Note ---
PT Daily Note-Current Subjective Patient in recliner pre tx, sleeping, agrees to PT upon waking, has unrated pain in his throat. Appearance Patient in recliner post tx with nurse call, phone, tray, has a sitter. Mental Status Patient Orientation: Person, Confused Attachments: IV Transfers SCALE: Activities may be completed with or without assistive devices. 1-Nfzjukjlhy-mcdpeke completes the activity by him/herself with no assistance from a helper. 5-Set-up or Clean-up Assistance-helper sets up or cleans up; patient completes activity. [place] assists only prior to or following the activity. 4-Supervision or Touching Assistance-helper provides verbal cues and/or touching/steadying and/or contact guard assistance as patient completes act ivity. Assistance may be provided throughout the activity or intermittently. 3-Partial/Moderate Assistance-helper does LESS THAN HALF the effort. [place] lifts, holds or supports trunk or limbs, but provides less than half the effort. 2-Substantial/Maximal Assistance-helper does MORE THAN HALF the effort. [place] lifts or holds trunk or limbs and provides more than half the effort. 7-Udxdzcire-baaauy does ALL the effort. Patient does none of the effort to complete the activity. Or, the assistance of 2 or more helpers is required for the patient to complete the activity. If activity was not attempted, code reason: 7-Patient Refused. 9-Not Applicable-not attempted and the patient did not perform the activity before the current illness, exacerbation or injury. 10-Not Attempted due to Environmental Limitations-(lack of equipment, weather restraints, etc.). 88-Not Attempted due to Medical Conditions or Safety Concerns. Sit to Stand (QC): 4 Chair/Ofu-ms-Epnsr Xfer(QC): 3 Weight Bearing Right Lower Extremity: Right Weight Bearing/Tolerated Left Lower Extremity: Left Weight Bearing/Tolerated Gait Training Distance: 100', 400' Walk 10 feet (QC): 3 Walk 50 ft with 2 Turns(QC): 3 Walk 150 ft (QC): 3 Gait Assistive Device: FWW Unsteady ambulation when turning, better going straight, uncoordinated steps Exercises Seated Therapy Exercises: Ankle pumps, Long arc quads Seated Reps: 15 Treatments ambulation, LE exercise Assessment Current Status: Fair Progress improved endurance, patient more cooperative, still confused PT Senior Living Goals Weigh Boss Goals PT Weigh Boss Goals Time Frame: Dec 16, 2019 Roll Left & Right (QC): 3 Sit to Lying (QC): 3 Lying-Sitting on Side/Bed(QC): 3 Sit to Stand (QC): 3 Chair/Xjz-fe-Iwsvy Xfer(QC): 3 Walk 10 feet (QC): 3 PT Plan Problem List Problem List: Activity Tolerance, Functional Strength, Safety, Balance, Gait, Transfer Treatment/Plan Treatment Plan: Continue Plan of Care Treatment Plan: Bed Mobility, Education, Functional Activity Anila, Functional Strength, Gait, Safety, Therapeutic Exercise, Transfers Treatment Duration: Dec 16, 2019 Frequency: 6 times per week Estimated Hrs Per Day: .25 hour per day Patient and/or Family Agrees t: Yes Safety Risks/Education Patient Education: Gait Training, Transfer Techniques, Correct Positioning, Safety Issues Teaching Recipient: Patient Teaching Methods: Demonstration, Discussion Response to Teaching: Reinforcement Needed Time/GCodes Time In: 1408 Time Out: 1424 Total Billed Treatment Time: 16 Total Billed Treatment 1 visit FA ALEXIA MYERS PT Dec 12, 2019 14:29
--- NOTE | 2019-12-12 16:01 | NUR ---
"RD ASSESSMENT PMHx: bipolar disorder; polysubstance abuse PT INTERACTION: Pt was awake and pleasant during nutrition follow-up. Pt states his appetite is getting better. Note avg PO intake <25% meals, per chart review. Pt states some issues with nausea, vomiting, and constipation since last assessment. Note last BM was 12/10, and pt not currently on bowel regimen per chart review. Note recent 29# wt loss x8d, per chart review. This RD believes it to be caused by fluid losses, per chart review. ABNORMAL NUTRITION-RELATED LAB VALUES LOW: HIGH: Cl 109; BUN 19 Est. kcal needs: 1700 kcal | 20 kcal/kg Est. Pro needs: 68 g Pro | 0.8 g Pro/kg PES STATEMENT: Inadequate oral intake (NI-2.1) related to loss of appetite | nausea | vomiting | constipation as evidenced by pt interview | avg PO intake <25% meals INTERVENTION: Continue with current diet order of DYS3 Advanced diet. Pt may benefit from nutrition supplementation if PO intake remains low. Encouraged pt to eat when able. Will continue to follow and reassess as pt needs, intake, and status change. MONITOR/EVALUATE: PO Intake; Plan of Care; Hydration Status; Weight Status; Lab Values Christine May, MS, RD, LD"
[2019-12-12] MEDS: DIVALPROEX EXT RELEASE 250 MG (DEPAKOTE ER) TAB PO SCH (19:40)
[2019-12-12] MEDS: ENOXAPARIN 40 MG/0.4 ML (LOVENOX) SYR SC SCH (19:42)
--- NOTE | 2019-12-12 20:30 | Discharge Inst-Simple/Standard ---
Discharge Inst-Standard Patient Instructions/Follow Up Plan of Care/Instructions/FU: Please continue to take your medications as written. Please follow up with your primary care doctor and with mental health as scheduled. Please quit using drugs. Activity as Tolerated: Yes Discharge Diet: No Restrictions Return to The Hospital For: Chest pain, shortness of breath, abdominal pain, fever, if you feel you are getting worse. Planned Outpatient Orders/Ref. Pneu Vac Indicated: Yes LEIDY ROMO MD Dec 12, 2019 20:30
[2019-12-13] MEDS: RT-ALBUTEROL/IPRATROPIUM 3 ML (DUONEB) VIAL INH SCH ×3 (02:23→10:29)
[2019-12-13] MEDS: ceFAZolin 2 GM IV Premixed 50 ML IV SCH (03:31)
[2019-12-13 04:01] VITALS: BP 140/83
[2019-12-13 05:52] LABS: BASOPHILS # (AUTO) 0.1 10^3/uL (0.0-0.1); BASOPHILS % (AUTO) 0 % (0-10); EOSINOPHILS # (AUTO) 0.4 10^3/uL (0.0-0.3); EOSINOPHILS % (AUTO) 3 % (0-10); HEMATOCRIT 33 % (40-54); HEMOGLOBIN 10.7 G/DL (13.3-17.7); LYMPHOCYTES # (AUTO) 3.1 X 10^3 (1.0-4.0); LYMPHOCYTES % (AUTO) 18 % (12-44); MEAN CORPUSCULAR HEMOGLOBIN 28 PG (25-34); MEAN CORPUSCULAR HGB CONC 33 G/DL (32-36); MEAN CORPUSCULAR VOLUME 85 FL (80-99); MEAN PLATELET VOLUME 10.2 FL (7.4-10.4); MONOCYTES # (AUTO) 1.6 X 10^3 (0.0-1.0); MONOCYTES % (AUTO) 9 % (0-12); NEUTROPHILS # (AUTO) 11.6 X 10^3 (1.8-7.8); NEUTROPHILS % (AUTO) 70 % (42-75); PLATELET COUNT 253 10^3/uL (130-400); RED CELL DISTRIBUTION WIDTH 13.8 % (10.0-14.5); WHITE BLOOD COUNT 16.7 10^3/uL (4.3-11.0)
[2019-12-13 06:04] LABS: CHLORIDE 106 MMOL/L (98-107); POTASSIUM 3.6 MMOL/L (3.6-5.0); SODIUM 140 MMOL/L (135-145)
[2019-12-13 06:05] LABS: CALCIUM 8.7 MG/DL (8.5-10.1); GLUCOSE 105 MG/DL (70-105)
[2019-12-13 06:07] LABS: CARBON DIOXIDE 21 MMOL/L (21-32)
[2019-12-13] MEDS: POTASSIUM CL 10MEQ/50ML IVPB 50 ML IV SCH (06:08)
[2019-12-13 06:09] LABS: CREATININE SERUM 0.76 MG/DL (0.60-1.30); GFR ESTIMATED > 60
[2019-12-13 06:10] LABS: BUN/CREATININE RATIO 24
[2019-12-13] MEDS: MAGNESIUM 1 GM/100 ML IVPB 100 ML IV SCH (06:20)
[2019-12-13] MEDS: KCL 20 MEQ TAB (K-DUR) PO SCH (06:23)
[2019-12-13 08:00] VITALS: BP 160/96
[2019-12-13] MEDS: risperiDONE 2 MG (RisperDAL) TAB PO SCH (08:33)
[2019-12-13] MEDS: PANTOPRAZOLE 40 MG (PROTONIX) VIAL IV SCH (08:33)
[2019-12-13] MEDS: meTOprolol SUCCINATE 100 MG (TOPROL XL) TAB PO SCH (08:34)
[2019-12-13] MEDS: lisINopril 20 MG (PRINIVIL) TABLET PO SCH (08:34)
--- NOTE | 2019-12-13 10:19 | Discharge Summary ---
Diagnosis/Chief Complaint Date of Admission Dec 04, 2019 at 06:31 Date of Discharge Discharge Date: Dec 13, 2019 Admission Diagnosis Acute Respiratory Failure Primary Care No,Local Physician Discharge Diagnosis (1) Respiratory failure Status: Acute (2) Acute psychosis Status: Acute (3) Illicit drug use Status: Acute (4) Rhabdomyolysis Status: Resolved (5) [place] (acute kidney injury) Status: Resolved (6) Pneumonia Status: Acute (7) Urethritis Status: Resolved (8) Bipolar disorder, manic Status: Acute Discharge Summary Discharge Physical Exam Allergies: Coded Allergies: No Known Drug Allergies (Unverified , 01/16/14) Vitals & I&Os Vital Signs Date Time Temp Pulse Resp B/P (MAP) Pulse Ox O2 Delivery O2 Flow Rate FiO2 12/13/19 11:10 12/13/19 10:30 98 Room Air 12/13/19 08:00 37.0 111 18 12/12/19 08:00 2.00 12/09/19 04:00 21 General Appearance: No Apparent Distress, WD/WN Respiratory: Lungs Clear, No Respiratory Distress Cardiovascular: Regular Rate, Rhythm, No Murmur Neurologic/Psychiatric: Alert, Oriented x3 Hospital Course Pt was admitted for acute respiratory failure following illicit drug intoxication. He was stabilized in the ICU and treated with antibiotics for an MSSA pneumonia. He did well and was extubated. He has known bipolar disorder and appeared to be in a manic phase. He was started on risperdal and depakote and repsonded well. He worked with PT/OT and his strength improved as well. He did have an echo that revealed a low EF and was treated with metoprolol and lisinopril. His EF did improve prior to DC though. He was discharged to home in stable condition and he had an appointment on 330pm on the day of discharge to establish with [facility] for mental health services. Labs (last 24 hrs) Microbiology 12/08/19 Gram Stain - Final, Complete 12/08/19 Sputum Culture - Final, Complete Staphylococcus aureus Corynebacterium striatum 12/07/19 Blood Culture - Final, Complete No growth 12/04/19 Urine Culture - Final, Complete NO GROWTH Patient resulted labs reviewed. Pending Labs Imaging: Reviewed Imaging Report Discussion & Recommendations Discharge Planning: >30 minutes discharge planning Discharge Home Medications: Active Scripts Active Divalproex Sodium ER (Divalproex Sodium) 250 Mg Tab.er.24h 750 Mg PO HS Lisinopril 20 Mg Tablet 40 Mg PO DAILY Metoprolol Succinate 100 Mg Tab.er.24h 200 Mg PO DAILY Instructions to patient/family Please see electronic discharge instructions given to patient. Clinical Quality Measures DVT/VTE Risk/Contraindication: Risk Factor Score Per Nursin RFS Level Per Nursing on Admit: 4+=Very High Problem Qualifiers (1) Respiratory failure: Chronicity: acute Respiratory failure complication: hypoxia and hypercapnia Qualified Codes: J96.01 - Acute respiratory failure with hypoxia; J96.02 - Acute respiratory failure with hypercapnia (2) Rhabdomyolysis: Rhabdomyolysis type: non-traumatic Qualified Codes: M62.82 - Rhabdomyolysis (3) Pneumonia: Pneumonia type: due to methicillin-sensitive Staphylococcus aureus (MSSA) Laterality: bilateral Lung location: unspecified part of lung Qualified Codes: J15.211 - Pneumonia due to methicillin susceptible Staphylococcus aureus (4) Bipolar disorder, manic: Current episode severity: severe Psychotic features: with psychotic features Qualified Codes: F31.2 - Bipolar disorder, current episode manic severe with psychotic features LEIDY ROMO MD Dec 13, 2019 10:19
[2019-12-13] MEDS ORDERED: MTP100TCR PO (10:26)
[2019-12-13] MEDS ORDERED: DIVA250T12 PO (10:26)
[2019-12-13] MEDS ORDERED: LISI-552 PO (10:26)
--- NOTE | 2019-12-13 10:58 | Physical Therapy Progress Note ---
Therapy Progress Note PT observed patient up independently in room without difficulty and in hallway. Patient observed in and out of bed and recliner multiple times due to patient's current mental status. Due to patient physical ability, patient does not require skilled PT at this time. PT to dismiss patient from services. JOSEY VUONG PT Dec 13, 2019 10:58
--- NOTE | 2019-12-13 11:07 | Progress Note - Cardiology ---
Cardiology SOAP Progress Note Subjective: Sitting up in bed taking a breathing treatment. Continues to c/o chest pain with deep breathing. No c/o palpitations, syncope, near syncope, or LE swelling. Objective: I&O/Vital Signs 12/12/19 12/13/19 12/13/19 12/13/19 23:55 01:13 02:24 04:01 Temp 36.8 36.9 Pulse 90 107 114 Resp 20 18 B/P (MAP) 138/78 (98) 140/83 (102) Pulse Ox 95 91 98 O2 Delivery Room Air Room Air 12/13/19 12/13/19 12/13/19 12/13/19 06:47 07:11 08:00 10:30 Temp 37.0 Pulse 106 111 Resp 18 B/P (MAP) 160/96 (117) Pulse Ox 96 100 98 O2 Delivery Room Air Room Air Room Air 12/13/19 00:00 Intake Total 800 ml Balance 800 ml Weight (Pounds): 220 Weight (Calculated Kilograms): 99.922257 Constitutional: appears stated age, AAO x 3, well-developed, well-nourished Respiratory: chest is bilaterally symmetric, rhonchi (scattered) Cardiovascular: regular rate-rhythm, S1 and S2 Gastrointestional: No tender; soft, audible bowel sounds Extremities: other (mild leg swelling) Neurologic/Psychiatric: other (moves all limbs equally) Skin: warm/dry; No rash, No ulcerations; other (abrasions to face) Results/Procedures: Labs Laboratory Tests 12/13/19 05:34: White Blood Count 16.7H, Red Blood Count 3.88L, Hemoglobin 10.7L, Hematocrit 33L , Mean Corpuscular Volume 85, Mean Corpuscular Hemoglobin 28, Mean Corpuscular Hemoglobin Concent 33, Red Cell Distribution Width 13.8, Platelet Count 253, Mean Platelet Volume 10.2, Neutrophils (%) (Auto) 70, Lymphocytes (%) (Auto) 18, Monocytes (%) (Auto) 9, Eosinophils (%) (Auto) 3, Basophils (%) (Auto) 0, Neutrophils # (Auto) 11.6H, Lymphocytes # (Auto) 3.1, Monocytes # (Auto) 1.6H, Eosinophils # (Auto) 0.4H, Basophils # (Auto) 0.1, Sodium Level 140, Potassium Level 3.6, Chloride Level 106, Carbon Dioxide Level 21, Anion Gap 13, Blood Urea Nitrogen 18, Creatinine 0.76, Estimat Glomerular Filtration Rate > 60, BUN/Creatinine Ratio 24, Glucose Level 105, Calcium Level 8.7, Magnesium Level 2.0 Microbiology 12/08/19 Gram Stain - Final, Complete 12/08/19 Sputum Culture - Final, Complete Staphylococcus aureus Corynebacterium striatum 12/07/19 Blood Culture - Preliminary, Resulted No growth 12/04/19 Urine Culture - Final, Complete NO GROWTH A/P: Assessment: Leucocytosis of undetermined etiology, being managed by the Hospitalist service Sinus tach after being extubated, improving Hypertension, improving ST elevation on EKG are consistent with early repolarization pattern in a young male. Negative serial troponin. Drug overdose - managed by the Hospitalist elba Severe cardiomyopathy. Echocardiogram done 12/04/2019 shows an LVEF of 25-30% (likely nonischemic cardiomyopathy). Repeat echo of December 12, 2019 shows LVEF improved to 60-65% Pneumonia - management per Medical services Rhabdomyolysis - improved CK levels. Plan: Echocardiogram shows improved LVEF Continue bb and HALEY-inhib Stressed importance of medication and f/u compliance Advised importance of immediate and complete cessation of drugs Out pt f/u next week CANDACE GUDINO Dec 13, 2019 11:07
--- NOTE | 2019-12-13 11:42 | NUR ---
CM/SS finalized discharge. Plan: The patient will discharge home with transportation from a friend. The patient will go to his appointment with [facility] (Mental Health) today at 3:30 p.m. The patient verified this. CM/SS visited with the patient. He appeared to be in good spirits today. The patient reported that he was out walking in [place] [address] and is doing much better. He states he is ready to get out of here. The patient spoke with this sw about his history of drug use. He reports that he has been using PCP since he was 19 years old. He did state he used Marijuana but does not use it as much. The patient reports that he also drinks alcohol but does not plan to quit. CM/SS asked if he was planning to stop the use of substances. He verbalized he was ready to quit. CM/SS offered resources for addiction treatment. The patient declined at this time. He stated he didn't think it was an addiction. The patient states he uses drug to cope with his depression and it is not to get high. The patient believes it's because he hasn't been on psych medicine for the past 10 years. PREET/SS informed patient that his appointment with Román Dockery could help with getting his psych medications lined out. He verbalized understanding. The patient reported that he is having trouble finding housing and asked about resources. PREET/SS printed off the application for [employer] section 8 housing and the instructions/requirements. He verbalized understanding.
== END 2019-12-13 11:15 | disposition home or self-care (01) | DRG 917 ==
LOC: EDUNIT# 03:30 → ER 03:32 → ICU 06:31 → 4TH 12-09 09:24
PROVIDERS: ADMIT Family Medicine; ATTEND Family Medicine
PROC: 5A1955Z Respiratory Ventilation, Greater than 96 Consecutive Hours (ICD-10-PCS; principal; 2019-12-04)
PROC: 0BH17EZ Insertion of Endotracheal Airway into Trachea, Via Natural or Artificial Opening (ICD-10-PCS; 2019-12-04)
DX: T59.2X1A Toxic effect of formaldehyde, accidental (unintentional), initial encounter (principal); J96.00 Acute respiratory failure, unspecified whether with hypoxia or hypercapnia; J15.211 Pneumonia due to Methicillin susceptible Staphylococcus aureus; N17.9 Acute kidney failure, unspecified; M62.82 Rhabdomyolysis; I42.8 Other cardiomyopathies; E87.2 Acidosis; F30.9 Manic episode, unspecified; T40.7X1A Poisoning by cannabis (derivatives), accidental (unintentional), initial encounter; T40.991A Poisoning by other psychodysleptics [hallucinogens], accidental (unintentional), initial encounter; I95.2 Hypotension due to drugs; R74.0 Nonspecific elevation of levels of transaminase and lactic acid dehydrogenase [LDH]; E87.6 Hypokalemia; F17.210 Nicotine dependence, cigarettes, uncomplicated; R45.1 Restlessness and agitation; D72.828 Other elevated white blood cell count; T38.0X5A Adverse effect of glucocorticoids and synthetic analogues, initial encounter; J45.909 Unspecified asthma, uncomplicated; S00.12XA Contusion of left eyelid and periocular area, initial encounter; S00.81XA Abrasion of other part of head, initial encounter; X58.XXXA Exposure to other specified factors, initial encounter; R00.0 Tachycardia, unspecified; N34.2 Other urethritis
CPT/HCPCS: 31500; 36415; 36600; 51702; 70450; 71045; 80048; 80053; 80076; 80306; 80320; 80329; 81000; 82550; 82553; 82805; 82962; 83735; 83880; 84100; 84145; 84478; 84484; 85007; 85025; 85027; 85610; 87040; 87070; 87077; 87081; 87088; 87186; 87205; 93005; 93041; 93306; 94002; 94003; 94640; 94664; 94760; 94799; 96361; 96372; 96374; 96375; 96376; 99291